=== PATIENT | female | born 1935 | race Caucasian/White ===

== ENCOUNTER 2016-06-26 11:58 | Emergency (ER) | payer OTHER, MEDICARE ==
[2016-06-26 12:10] VITALS: BMI 19.5
--- NOTE | 2016-06-26 12:26 | PDOC ---
History of Present Illness - General History Source: Patient, Old Records Exam Limitations: No Limitations <Mick Hutchinson - Last Filed: 06/26/16 17:38> <David Le - Last Filed: 06/27/16 17:01> - General Chief Complaint: Syncope/Near Syncope Stated Complaint: SYNCOPE Time Seen by Provider: 06/26/16 12:12 - History of Present Illness Initial Comments: The patient is a 80 year old female, ANAM, with a significant past medical history of HTN, who presents to the emergency department today for further evaluation of generalized weakness at 1100 today. The patient states that she went to her inspector hairspring this more any began to feel fatigued/generally weak. She states the hairstylist became concerned, sat her in a chair with a pillow behind her head and called an ambulance. . She denies any loss of consciousness , syncope, headache, lightheadedness, chest pain, abdominmal pain. She has no complaints at this time. The patient denies fever and chills. The patient denies nausea, vomiting, dysuria and diarrhea. The patient denies chest pain, cough, and shortness of breath. PCP: Dr. Lujan [phone] PAST MEDICAL HISTORY: HTN, Skin cancer PAST SURGICAL HISTORY: Left abdominal hernia repair. Orthopedic hip surgery FAMILY HISTORY: No pertinent history reported SOCIAL HISTORY: None reported MEDICATIONS: Reviewed ALLERGIES: As per nursing notes (Mick Hutchinson) Past History <Mick Hutchinson - Last Filed: 06/26/16 17:38> - Past Medical History Anemia: No Asthma: No Cancer: Yes (SKIN) Cardiac Disorders: No CVA: No CHF: No Dementia: No Diabetes: No GI Disorders: No Disorders: No HTN: No Hypercholesterolemia: No Liver Disease: No Seizures: No Thyroid Disease: No - Surgical History Abdominal Surgery: Yes (HERNIA REPAIR - LEFT) Appendectomy: No Cardiac Surgery: No Cholecystectomy: No Lung Surgery: No Neurologic Surgery: No Orthopedic Surgery: Yes (hip) - Immunization History Td Vaccination: Yes TDAP Vaccination: Yes Immunization Up to Date: No - Psycho/Social/Smoking Cessation Hx Anxiety: No Suicidal Ideation: No Smoking Status: No Smoking History: Never smoked Have you smoked in the past 12 months: No Number of Cigarettes Smoked Daily: 0 Cigars Per Day: 0 Information on smoking cessation initiated: No Hx Alcohol Use: No Drug/Substance Use Hx: No Substance Use Type: None Hx Substance Use Treatment: No <David Le - Last Filed: 06/27/16 17:01> - Past Medical History Allergies/Adverse Reactions: Allergies Allergy/AdvReac Type Severity Reaction Status Date / Time No Known Drug Allergies Allergy Verified 07/04/14 08:21 Home Medications: Ambulatory Orders No Home Medications 0 dose .ROUTE UTDICT 07/19/13 Nitrofurantoin Monohyd/M-Cryst [Macrobid -] 100 mg PO BID #14 capsule 06/26/16 Cardiac Specific PMH - Complaint Specific PMHX Pacemaker: No <David Le - Last Filed: 06/27/16 17:01> Review of Systems - Review of Systems Able to Perform ROS?: Yes <Mick Hutchinson - Last Filed: 06/26/16 17:38> <David Le - Last Filed: 06/27/16 17:01> - Review of Systems Comments:: CONSTITUTIONAL: Reported: Generalized Weakness, diaphoresis No reported: Fever, Chills, Loss of Appetite HEENT: No reported: Rhinorrhea, Nasal Congestion, Throat Pain, Throat Swelling, Difficulty Swallowing, Mouth Swelling, Ear Pain, Eye Pain, Visual Changes CARDIOVASCULAR: No reported: Chest Pain, Syncope, Palpitations, Irregular Heart Rate, Lightheadedness, Peripheral Edema RESPIRATORY: No reported: Cough, Shortness of Breath, SOB with Exertion, Orthopnea, Wheezing , Stridor, Hemoptysis GASTROINTESTINAL: No reported: Abdominal pain, Abdominal Distension, Nausea, Vomiting, Diarrhea, Constipation, Melena, Hematochezia GENITOURINARY: No reported: Dysuria, Frequency, Urgency, Hesitancy, Flank Pain, Genital Pain MUSCULOSKELETAL: No reported: Myalgia, Arthralgia, Joint Swelling, Back pain, Neck Pain SKIN: No reported: Rash, Itching, Pallor HEMATOLOGIC/IMMUNOLOGIC: No reported: Easy Bleeding, Easy Bruising, Lymphadenopathy, Frequent infections ENDOCRINE: No reported: Unexplained Weight Gain, Unexplained Weight Loss, Heat Intolerance , Cold Intolerance NEUROLOGIC: No reported: Headache, Focal Weakness, Paresthesias, Vertigo, Lightheadedness, Unsteady Gait, Seizure, Mental Status Changes, Incontinence PSYCHIATRIC: No reported: Anxiety, Depression (Mick Hutchinson) *Physical Exam <ManishMatthew joyake - Last Filed: 06/26/16 17:38> <David Le - Last Filed: 06/27/16 17:01> - Vital Signs Last Vital Signs Temp Pulse Resp BP Pulse Ox 98.0 F 17 L 17 134/88 100 06/26/16 18:12 06/26/16 19:30 06/26/16 19:30 06/26/16 19:30 06/26/16 19:30 - Physical Exam Comments: GENERAL: The patient is awake, alert, and fully oriented, Nontoxic - in no acute distress. HEAD: Normocephalic, atraumatic. EYES: extraocular movements intact, sclera anicteric, conjunctiva clear. ENT: Normal voice, Moist mucous membranes. NECK: Normal range of motion, No JVD LUNGS: Breath sounds equal, clear to auscultation bilaterally. No wheezes, no rhonchi, no rales. HEART: Regular rate and rhythm, normal S1 and S2 without murmur, rub or gallop. ABDOMEN: Soft, nontender, normoactive bowel sounds. No guarding, no rebound. No masses. No CVA tenderness EXTREMITIES: Normal range of motion, no edema. No clubbing or cyanosis. No cords , erythema, or tenderness. NEUROLOGICAL: No facial asymmetry, Normal speech, normal gait. PSYCH: Normal mood, normal affect. SKIN: Warm, Dry, normal turgor. (Mick Hutchinson) Heart Score/ECG Review <JasperMatthewMick - Last Filed: 06/26/16 17:38> <David Le - Last Filed: 06/27/16 17:01> - ECG Impressions Comment:: 06/26/16 13:49 Twelve-lead EKG was performed and reviewed by me. There is normal sinus rhythm with a normal rate. Rate of 65 The axis is normal. The intervals are normal. There is normal R wave progression There are no ST or T wave abnormalities. Impression: Normal twelve-lead EKG (David Le) ED Treatment Course - LABORATORY CBC & Chemistry Diagram: 06/26/16 12:13 06/26/16 12:13 <Mick Hutchinson - Last Filed: 06/26/16 17:38> - LABORATORY CBC & Chemistry Diagram: 06/26/16 12:13 06/26/16 12:13 <David Le - Last Filed: 06/27/16 17:01> - ADDITIONAL ORDERS Additional order review: 06/26/16 12:13 RBC 4.52 MCV 91.8 MCHC 33.4 RDW 14.8 MPV 7.6 D Neutrophils % 82.2 D Lymphocytes % 10.8 D Monocytes % 5.3 Eosinophils % 0.4 D Basophils % 1.3 - RADIOLOGY Radiology Studies Ordered: Category Date Time Status CHEST X-RAY PORTABLE* [RAD] Stat Radiology 06/26/16 12:13 Completed Radiograph Interpretation: 06/26/16 13:17 EXAM#: TYPE/EXAM: RESULT: [id number] RAD/CHEST X-RAY PORTABLE* HISTORY PROVIDED: Syncope. A single frontal portable projection of the chest at 12:24 PM is submitted. The heart size is within normal limits. The lung valencia are hyperaerated with some increased interstitial markings consistent with chronic obstructive pulmonary disease. No pulmonary infiltrates or pleural effusions are identified. Stable nodularity is noted within the right lower lobe. IMPRESSION: COPD, no acute pathology or significant change since 07/13/2014. Reported By: William Hayes MD 06/26/16 8070 (Mick Hutchinson) - Medications Given in the ED: ED Medications Discontinued Medications Generic Name Dose Route Start Last Admin Trade Name Freq PRN Reason Stop Dose Admin Sodium Chloride 500 mls @ 500 mls/hr 06/26/16 13:23 06/26/16 13:30 Normal Saline - IV 06/26/16 14:22 500 mls/hr ASDIR STA Administration Ceftriaxone Sodium 1 gm/ 50 mls @ 100 mls/hr 06/26/16 16:12 06/26/16 17:20 Dextrose IVPB 06/26/16 16:41 100 mls/hr ONCE ONE Administration Medical Decision Making <Mick Hutchinson - Last Filed: 06/26/16 17:38> <David Le - Last Filed: 06/27/16 17:01> - Medical Decision Making 06/26/16 14:[address] Lujan. Dr. Lujan answered call. Case discussed. (Mick Hutchinson) 06/26/16 13:22 80y no known pmhx presents with complaint of feeling genreally weak since this AM when she was at the hair dressers, denies any associated cp pain, abd pain, dizziness, n/v, fever/chills, diarrhea, melena, bpr. on exam the pt appears well , with unmremarkable exam will ck labs to r/o anemia, metabolic dernagement, screening ekg for acs, ua to r/o occult uti will give pt gently fluids as pt s states she did not eat anything today because she didnt want to go to the bathroom A portion of this note was documented by scribe services under my direction. I have reviewed the details of the note, within reason, and agree with the documentation with the following case summary and management plan written by me 06/26/16 13:49 The patient's labs results were reviewed noted mild elevation of cr possiblely due to dehdation awaitint UA 06/26/16 14:[address] lujan agree with management and 2nd trop and gentle hydration if negative will d/c elia pt with pmd fu 06/26/16 16:13 ua c/w uti will give pt a dose of CTX will await 2nd trop pt asymptomatic at this time 06/26/16 19:13 trop neg x2 pt feeling improved will dc with pmd fu retun precuations were discussed I discussed the physical exam findings, ancillary test results and final diagnoses with the patient. I answered all of the patient's questions. The patient was satisfied with the care received and felt comfortable with the discharge plan and treatment plan. The patient will call their primary care physician within 24 hours to arrange follow-up and will return to the Emergency Department with any new, persistent or worsening symptoms. (David Le) *DC/Admit/Observation/Transfer <Mick Hutchinson - Last Filed: 06/26/16 17:38> - Discharge Dispostion Admit: No <David Le - Last Filed: 06/27/16 17:01> Diagnosis at time of Disposition: UTI (urinary tract infection) Qualifiers: Urinary tract infection type: site unspecified Hematuria presence: without hematuria Qualified Code(s): N39.0 - Urinary tract infection, site not specified - Discharge Dispostion Disposition: HOME Condition at time of disposition: Improved - Prescriptions Prescriptions: Nitrofurantoin Monohyd/M-Cryst [Macrobid -] 100 mg PO BID #14 capsule - Referrals Referrals: Sybil Lujan [Primary Care Provider] - - Patient Instructions Printed Discharge Instructions: DI for Urinary Tract Infection (UTI) Additional Instructions: Return to the emergency department immediately with ANY new, persistent or worsening symptoms including any fever/chills, back pain, or other concerns. You MUST call and follow up with your doctor tomorrow for further evaluation of your symptoms. Results were discussed with you. Please make sure your doctor reviews the results of your emergency evaluation. If you had any xrays during your visit, it was read preliminarily by myself, a Radiologist will review it and if there are any additional findings we will call you. - Attestations Scribe Attestion: Documentation prepared by Mick Hutchinson, acting as medical office assistant for David Le. (Mick Hutchinson)
[2016-06-26 12:37] LABS: BASOPHIL 1.3 % (0-2.0); EOSINOPHIL 0.4 % (0-4.5); MCH 30.6 pg (25.7-33.7); MCHC 33.4 g/dl (32.0-36.0); MEAN CELL VOLUME 91.8 fl (80-96); MEAN PLT VOLUME 7.6 fl (7.5-11.1); NEUTROPHILS 82.2 % (42.8-82.8); PLATELET COUNT 172 K/MM3 (134-434); RDW 14.8 % (11.6-15.6); WHITE BLOOD COUNT 4.8 K/mm3 (4.0-10.0)
[2016-06-26] MEDS ORDERED: SODIUM CHLORIDE 500 ML IV STA (13:23)
[2016-06-26 13:29] LABS: ALBUMIN 3.7 g/dl (3.4-5.0); ANION GAP 20 (8-16); CALCIUM 9.6 mg/dL (8.5-10.1); CO2 21 mmol/L (21-32); COCKROFT - GAULT 26.2735; CREATININE 1.3 mg/dL (0.55-1.02); GLUCOSE,RANDOM 72 mg/dL (74-106); SGOT/AST 21 U/L (15-37); SGPT/ALT 13 U/L (12-78); TOT PROT 6.5 g/dl (6.4-8.2)
[2016-06-26 13:32] LABS: ALK PHOS 80 U/L (45-117); TROPONIN I < 0.02 ng/ml (0.00-0.05)
[2016-06-26 16:00] LABS: URINE APPEARANCE CLEAR; URINE BILIRUBIN 1+ (NEGATIVE); URINE BLOOD TRACE-INTA (NEGATIVE); URINE COLOR LT. YELLOW; URINE GLUCOSE (UA) NEGATIVE (NEGATIVE); URINE KETONE 1+ (NEGATIVE); URINE PROTEIN TRACE (NEGATIVE); URINE UROBILINOGEN 0.2 E.U/dl E.U./dl (0.2-1.0)
[2016-06-26 16:01] LABS: URINE LEUK ESTERASE 1+ (NEGATIVE); URINE NITRITE POSITIVE (NEGATIVE)
[2016-06-26] MEDS ORDERED: CEFTRIAXONE 1 GM in DEXTROSE 5%-WATER - 50 ML IVPB ONE (16:12)
[2016-06-26 17:15] LABS: URINE BACTERIA MODERATE /hpf (NONE SEEN); URINE RBC 5 /hpf (0-3); URINE WBC 6 /hpf (3-5)
[2016-06-26] MEDS ORDERED: CEFTRIAXONE 50 ML ONE (17:19)
[2016-06-26 18:13] VITALS: TEMP 98
[2016-06-26 18:55] LABS: TROPONIN I < 0.02 ng/ml (0.00-0.05)
[2016-06-26 19:31] VITALS: BP 134/88; PULSE 17
--- NOTE | 2016-06-29 12:56 | EKG ---
Test Reason : Blood Pressure : / mmHG Vent. Rate : 065 BPM Atrial Rate : 065 BPM P-R Int : 158 ms QRS Dur : 082 ms QT Int : 434 ms P-R-T Axes : 078 048 059 degrees QTc Int : 451 ms NORMAL SINUS RHYTHM NORMAL ECG WHEN COMPARED WITH ECG OF 10-JUN-2011 13:19, NO SIGNIFICANT CHANGE WAS FOUND Confirmed by ASHWIN SOLIS MD ([id number]) on 06/29/2016 12:56:10 PM Referred By: Confirmed By:ASHWIN SOLIS MD
== END 2016-06-26 19:31 | disposition home or self-care (01) ==
LOC: JER 11:58
PROC: 3E0337Z Introduction of Electrolytic and Water Balance Substance into Peripheral Vein, Percutaneous Approach (ICD-10-PCS; principal; 2016-06-26)
PROC: 3E03329 Introduction of Other Anti-infective into Peripheral Vein, Percutaneous Approach (ICD-10-PCS; 2016-06-26)
DX: N30.00 Acute cystitis without hematuria (principal); I10 Essential (primary) hypertension; J44.9 Chronic obstructive pulmonary disease, unspecified
CPT/HCPCS: 36415; 71010-TC; 80053; 81003; 81015; 82550; 84484; 85025; 93005; 93010; 96361; 96365; 99285-25

== ENCOUNTER 2016-07-23 17:29 | Inpatient (IN) | payer OTHER, MEDICARE ==
[2016-07-23 17:36] VITALS: BMI 19.5
--- NOTE | 2016-07-23 18:17 | PDOC ---
History of Present Illness <Johanne Oliveira - Last Filed: 07/23/16 20:59> - General History Source: Patient, Old Records Exam Limitations: No Limitations <Mick Hutchinson - Last Filed: 07/23/16 21:23> - General Chief Complaint: Chest Pain Stated Complaint: CHEST PAIN - History of Present Illness Initial Comments: The patient is a 80 year old female, accompanied by daughter, with a significant past medical history of HTN, who presents to the emergency department today for further evaluation of chest pain for 2 hours. The patient states that earlier today she syncopized in a stationary store in [place], was evaluated by police, and asked to go home instead of presenting to the ED. At 4pm today the patient called her daughter after onset of symptoms. The patient describes the chest pain as midsternal pressure and non-radiating. The patient states that she has never experienced this kind of chest pain previously. She did not try to treat her pain at home. She denies history of TN or CVA/TIA. The patient denies fever, chills, and sweats. The patient denies nausea, vomiting, and diarrhea. The patient denies cough, and shortness of breath. PCP: Dr. Sybil Lujan [phone] PAST MEDICAL HISTORY: HTN, Skin cancer PAST SURGICAL HISTORY: Left abdominal hernia repair. Orthopedic hip surgery FAMILY HISTORY: No pertinent history reported SOCIAL HISTORY: None reported ALLERGIES: As per nursing notes MEDICATIONS: Reviewed (Mick Hutchinson) Past History - Past Medical History Anemia: No Asthma: No Cancer: Yes (SKIN) Cardiac Disorders: No CVA: No CHF: No Dementia: No Diabetes: No GI Disorders: No Disorders: No HTN: No Hypercholesterolemia: No Liver Disease: No Seizures: No Thyroid Disease: No - Surgical History Abdominal Surgery: Yes (HERNIA REPAIR - LEFT) Appendectomy: No Cardiac Surgery: No Cholecystectomy: No Lung Surgery: No Neurologic Surgery: No Orthopedic Surgery: Yes (hip) - Immunization History Td Vaccination: Yes TDAP Vaccination: Yes Immunization Up to Date: No - Psycho/Social/Smoking Cessation Hx Anxiety: No Suicidal Ideation: No Smoking Status: No Smoking History: Never smoked Have you smoked in the past 12 months: No Number of Cigarettes Smoked Daily: 0 Cigars Per Day: 0 Information on smoking cessation initiated: No Hx Alcohol Use: No Drug/Substance Use Hx: No Substance Use Type: None Hx Substance Use Treatment: No <Johanne Oliveira - Last Filed: 07/23/16 20:59> <Mick Hutchinson - Last Filed: 07/23/16 21:23> - Past Medical History Allergies/Adverse Reactions: Allergies Allergy/AdvReac Type Severity Reaction Status Date / Time No Known Drug Allergies Allergy Verified 07/23/16 18:16 Home Medications: Ambulatory Orders No Home Medications 0 dose .ROUTE UTDICT 07/19/13 Cardiac Specific PMH - Complaint Specific PMHX Pacemaker: No <Johanne Oliveira - Last Filed: 07/23/16 20:59> Review of Systems <Johanne Oliveira - Last Filed: 07/23/16 20:59> - Review of Systems Able to Perform ROS?: Yes <Mick Hutchinson - Last Filed: 07/23/16 21:23> - Review of Systems Comments:: GENERAL/CONSTITUTIONAL: No fever or chills. No weakness. HEAD, EYES, EARS, NOSE AND THROAT: No change in vision. No ear pain or discharge. No sore throat. GASTROINTESTINAL: No nausea, vomiting, diarrhea or constipation. GENITOURINARY: No dysuria, frequency, or change in urination. CARDIOVASCULAR: (+) Chest pain, Syncope. No shortness of breath. RESPIRATORY: No cough, wheezing, or hemoptysis. MUSCULOSKELETAL: No joint or muscle swelling or pain. No neck or back pain. SKIN: No rash NEUROLOGIC: No headache, vertigo, loss of consciousness, or change in strength/ sensation. ENDOCRINE: No increased thirst. No abnormal weight change. HEMATOLOGIC/LYMPHATIC: No anemia, easy bleeding, or history of blood clots. ALLERGIC/IMMUNOLOGIC: No hives or skin allergy. (Mick Hutchinson) *Physical Exam <Johanne Oliveira - Last Filed: 07/23/16 20:59> <Mick Hutchinson - Last Filed: 07/23/16 21:23> - Vital Signs Last Vital Signs Temp Pulse Resp BP Pulse Ox 97.6 F 69 21 143/83 100 07/23/16 17:35 07/23/16 19:15 07/23/16 19:15 07/23/16 19:15 07/23/16 19:15 - Physical Exam Comments: GENERAL: Awake, alert, and fully oriented, in no acute distress HEAD: No signs of trauma EYES: PERRLA, EOMI, sclera anicteric, conjunctiva clear ENT: Auricles normal inspection, nares patent, Moist mucosa NECK: Normal ROM, supple, no lymphadenopathy, JVD, or masses LUNGS: Breath sounds equal, clear to auscultation bilaterally. No wheezes, and no crackles HEART: Regular rate and rhythm, normal S1 and S2, no murmurs, rubs or gallops ABDOMEN: Soft, nontender, normoactive bowel sounds. No guarding, no rebound. No masses EXTREMITIES: Normal range of motion, no edema. No clubbing or cyanosis. No cords, erythema, or tenderness NEUROLOGICAL: Normal speech SKIN: Warm, Dry, normal turgor, no rashes or lesions noted. (Mick Hutchinson) Heart Score/ECG Review #1 General ECG Interpretation: Sinus Rhythm, Normal Rate, Normal Intervals, No acute ischemic changes Compared to previous ECG there are: No significant change (compare 06/26/16) - ECG Intrepretation Rhythm: Regular Rhythm - [place]: Normal <Johanne Oliveira - Last Filed: 07/23/16 20:59> <Mick Hutchinson - Last Filed: 07/23/16 21:23> - ECG Intrepretation Comment:: 07/23/16 18:[address] elevation or depression. (Johanne Oliveira) ED Treatment Course - LABORATORY CBC & Chemistry Diagram: 07/23/16 18:35 07/23/16 18:36 <Johanne Oliveira - Last Filed: 07/23/16 20:59> - LABORATORY CBC & Chemistry Diagram: 07/23/16 18:35 07/23/16 18:36 <Mick Hutchinson - Last Filed: 07/23/16 21:23> - ADDITIONAL ORDERS Additional order review: Laboratory Results 07/23/16 07/23/16 07/23/16 18:50 18:36 18:18 INR 0.99 Sodium 137 Potassium 4.4 Chloride 97 L Carbon Dioxide 30 D Anion Gap 10 BUN 33 H Creatinine 1.4 H Creat Clearance w eGFR 36.00 Random Glucose 92 D Calcium 9.3 Magnesium 2.1 Total Bilirubin 0.6 D AST 29 D ALT 22 D Alkaline Phosphatase 85 Creatine Kinase Cancelled 92 Troponin I Cancelled < 0.02 Total Protein 6.5 Albumin 3.8 07/23/16 18:35 RBC 4.35 MCV 90.5 MCHC 32.8 RDW 14.4 MPV 8.4 D - RADIOLOGY Radiograph Interpretation: EXAM#: TYPE/EXAM: RESULT: [id number] RAD/CHEST PA LAT Chest pain. Rule out infiltrate. Chest x-ray PA and lateral. Since prior chest x-ray dated 06/26/2016 , the cardiac silhouette remains slightly enlarged with unfolding of the aortic arch and perihilar increased lung markings. There are mild bibasal atelectatic changes. An approximately 6 mm nodular density is again noted in the right midlung with irregular margin unchanged since prior chest x-ray dated 2014. Mediastinum and visualized osseous structures appear intact with evidence of osteopenia Impression: Stable 6 mm nodule in the right midlung with a slightly irregular margin, unchanged since prior chest x-ray dated 07/13/[address] scan of the chest dated . No focal infiltrates are identified. Reported By: Patrice Stout MD 07/23/16 1950 (Mick Hutchinson) - Medications Given in the ED: ED Medications Discontinued Medications Generic Name Dose Route Start Last Admin Trade Name Freq PRN Reason Stop Dose Admin Aspirin 162 mg 07/23/16 18:40 07/23/16 18:59 Asa - PO 07/23/16 18:41 162 mg ONCE ONE Administration Medical Decision Making <Johanne Oliveira - Last Filed: 07/23/16 20:59> <Mick Hutchinson - Last Filed: 07/23/16 21:23> - Medical Decision Making 07/23/16 18:13 80 yo F wit h/o low bp ( not currently taking any medications) here wtih syncope this am, and now having chest pain. had syncopal episode this am while at a store in [place]. bre[place]. was evaluated by EMS, felt ok to go home. then this afternoon started having chest pain. described as a pressure like sensation , substernal no radiation. no associated n/v/ or sob. no leg edema. no mod factors. no h/o similar pain. did have syncopal episode several weeks ago , was evaluated and dc home. no prior stress test. no family h/o CAD. on exam awake alert, lungs clear. heart no m/r/g. abd soft no palp massess. ext wwp, no edema. nuero alert and oriented, moves all ext speech clear. plan: differential: dehydration, anemia acs, infection such as uti, pna, mi, plan ekg, aspirin, cxr tele, labs will require admission to tele r/o acs. will d /w pt street vendor dr. martinez and pcp kaila lujan. 07/23/16 20:51 on reassessment pt states now pain is pleuritic worse with movement and deep breathing. n orisk factor for pe or dvt. has old eccymosis (1 x 1 cm in size right lower anterior chest wall) with mild ttp. no palp crepitus or step off. will admit to tele. first set of enzymes negative. cxr with right sided nodule otherwise negative. pg dr lindsey and dr martinez (Johanne Oliveira) 07/23/16 20:[address] Lujan's service placed [phone] 07/23/16 20:[address] Martinez's service placed [phone]. 07/23/16 20:57 Dr. Lujan called in the ED. Case discussed. Agreed to admit. 07/23/16 21:[address] Martinez's service placed [phone]. 07/23/16 21:10 Dr. Caputo (in school suspension aide for Dr. Martinez) called into ED. Case discussed. Agreed to admit. (Mick Hutchinson) *DC/Admit/Observation/Transfer - Discharge Dispostion Admit: Yes <Johanne Oliveira - Last Filed: 07/23/16 20:59> <Mick Hutchinson - Last Filed: 07/23/16 21:23> Diagnosis at time of Disposition: Syncope, Chest pain - Referrals Referrals: Sybil Lujan [Primary Care Provider] - - Attestations Scribe Attestion: Documentation prepared by Mick Hutchinson, acting as medical clerk for Johanne Oliveira MD. (Mick Hutchinson)
[2016-07-23] MEDS ORDERED: ASPIRIN 81 MG CHEWABLE TABLETS PO ONE (18:40)
[2016-07-23 18:47] LABS: MCH 29.7 pg (25.7-33.7); MCHC 32.8 g/dl (32.0-36.0); MEAN CELL VOLUME 90.5 fl (80-96); MEAN PLT VOLUME 8.4 fl (7.5-11.1); PLATELET COUNT 151 K/MM3 (134-434); RDW 14.4 % (11.6-15.6); WHITE BLOOD COUNT 8.1 K/mm3 (4.0-10.0)
[2016-07-23 19:22] LABS: ALBUMIN 3.8 g/dl (3.4-5.0); ANION GAP 10 (8-16); BILIRUBIN,TOTAL 0.6 mg/dL (0.2-1.0); CALCIUM 9.3 mg/dL (8.5-10.1); CO2 30 mmol/L (21-32); CREATININE 1.4 mg/dL (0.55-1.02); GLUCOSE,RANDOM 92 mg/dL (74-106); SGOT/AST 29 U/L (15-37); SGPT/ALT 22 U/L (12-78); TOT PROT 6.5 g/dl (6.4-8.2)
[2016-07-23 19:25] LABS: ALK PHOS 85 U/L (45-117); TROPONIN I < 0.02 ng/ml (0.00-0.05)
[2016-07-23 19:51] LABS: INR 0.99 (0.82-1.09); PROTHROMBIN TIME (PATIENT) 10.9 SEC (9.98-11.88)
[2016-07-24 07:58] LABS: ANION GAP 10 (8-16); CALCIUM 8.8 mg/dL (8.5-10.1); CO2 30 mmol/L (21-32); COCKROFT - GAULT 34.1615; GLUCOSE,RANDOM 70 mg/dL (74-106)
[2016-07-24 08:06] LABS: THYROID STIMULATING HORMONE 1.99 uIU/ml (0.358-3.74)
[2016-07-24 08:22] LABS: TROPONIN I < 0.02 ng/ml (0.00-0.05)
--- NOTE | 2016-07-24 09:37 | HP ---
Admitting History and Physical - Primary Care Physician PCP: Sybil Lujan S - Admission Chief Complaint: CP, presyncope History of Present Illness: The patient is a 80 year old female, accompanied by daughter, with a significant past medical history of HTN, aortic insufficiency, pulm nodules who presented for further evaluation of chest pain for 2 hours. The patient reports feeling weak, near syncope, then fell without true syncope. The patient describes the chest pain as midsternal discomfort, non-exertional, reproducible , pleuritic, worse with turning from side to side. s/p ER visit few weeks ago when she also almost passed out (but did not) found to have UTI sent home on po ATB nodysuria now but has some lower abdominal discomfort on/off; occasional constipation also, no fever no N/V History Source: Patient, Medical Record Limitations to Obtaining History: No Limitations - Past Medical History Pulmonary: Yes: COPD, Other (lung nodule) Musculoskeletal: Yes: Osteoarthritis - Smoking History Smoking history: Never smoked Have you smoked in the past 12 months: No Aproximately how many cigarettes per day: 0 - Alcohol/Substance Use Hx Alcohol Use: No History of Substance Use: reports: None - Social History Usual Living Arrangement: Yes: Alone ADL: Independent History of Recent Travel: No Home Medications - Allergies Allergies/Adverse Reactions: Allergies Allergy/AdvReac Type Severity Reaction Status Date / Time No Known Drug Allergies Allergy Verified 07/23/16 18:16 - Home Medications Home Medications: Ambulatory Orders No Home Medications 0 dose .ROUTE UTDICT 07/19/13 Levofloxacin [Levaquin -] 250 mg PO DAILY #7 tablet 07/25/16 Family Disease History - Family Disease History Family History: Unremarkable Review of Systems - Review of Systems Constitutional: denies: Chills, Fever, Lethargy Eyes: denies: Blind Spots, Blurred Vision, Double Vision HENT: denies: Ear Pain Neck: denies: Decreased ROM, Pain on Movement, Stiffness Cardiovascular: reports: Chest Pain. denies: Palpitations, Shortness of Breath Respiratory: denies: Cough, SOB Gastrointestinal: reports: Abdominal Pain, Bloating, Constipation. denies: Diarrhea, Vomiting Genitourinary: denies: Burning, Dysuria, Flank Pain Musculoskeletal: reports: Back Pain (occasional) Integumentary: denies: Pruritis, Rash Neurological: reports: Change in LOC, Confusion, Dizziness, Weakness (general). denies: Change in Speech, Headache, Seizure, Syncope (presyncope), Unsteady Gait Hematology/Lymphatic: denies: Easily Bruised, Excessive Bleeding Psychiatric: denies: Altered Sleep Pattern, Anxiety, Depression Physical Examination Vital Signs: Vital Signs Temperature 98 F 07/24/16 09:00 Pulse Rate 72 07/24/16 09:00 Respiratory Rate 18 07/24/16 09:00 Blood Pressure 122/68 07/24/16 09:00 O2 Sat by Pulse Oximetry (%) 100 07/23/16 22:57 Constitutional: Yes: No Distress, Calm Eyes: Yes: Conjunctiva Clear HENT: Yes: Atraumatic Neck: Yes: Supple Cardiovascular: Yes: Regular Rate and Rhythm Respiratory: Yes: CTA Bilaterally Gastrointestinal: Yes: Soft. No: Distention, Tenderness Renal/: No: CVA Tenderness - Left, CVA Tenderness - Right, Hematuria Musculoskeletal: No: Joint Stiffness, Joint Swelling Extremities: No: Cold, Cool, Cyanosis Edema: No Peripheral Pulses WNL: Yes Integumentary: Yes: Venous Stasis Changes. No: Rash Neurological: Yes: WNL, Alert, Oriented, Other (no signs of seizures, no shakes , no incontinence). No: Ataxia, Confusion, Dysarthria, Facial Droop, Lethargy, Seizure, Tingling, Tremors, Unsteady Gait, Weakness ...Motor Strength: WNL Psychiatric: Yes: WNL, Alert, Oriented. No: Agitated, Suicidal Ideation Labs: CBC, BMP 07/24/16 05:38 Imaging - Results Chest X-ray: Report Reviewed Other: Report Reviewed Assessment/Plan The patient is a 80 year old female, accompanied by daughter, with a significant past medical history of HTN, aortic insufficiency, pulm nodules who presented for further evaluation of chest pain for 2 hours. The patient reports feeling weak, near syncope, then fell without true syncope. s/p UTI; some abdominal discomfort admitted to telemetry head CT negative check echo, carotids cardiology eval abdomen CT; po ATB for UTI eval as outpt chest CT no ivc falls decubs DVT pfx d/w pt and staff
[2016-07-24] MEDS: HEPARIN NA (PORCINE) 5,000 UNITS/ML 1ML VIAL SQ SCH ×2 (10:26→22:33)
--- NOTE | 2016-07-24 12:29 | CON.CARD ---
Consult Consult Specialty:: Cardiology Referred by:: Sybil Ljuan MD Reason for Consultation:: Chest pain - History of Present Illness Chief Complaint: Light-headedness, chest pain History of Present Illness: The patient is a 80 year old female, accompanied by daughter, with a significant past medical history of HTN, aortic insufficiency, pulm nodules who presented for further evaluation of chest pain for 2 hours. The patient reports feeling weak, near syncope, then fell without true syncope. The patient describes the chest pain as midsternal discomfort, non-exertional, reproducible , pleuritic, worse with turning from side to side. PCP: Dr. Sybil Lujan [phone] PAST MEDICAL HISTORY: HTN, Skin cancer PAST SURGICAL HISTORY: Left abdominal hernia repair. Orthopedic hip surgery FAMILY HISTORY: No pertinent history reported SOCIAL HISTORY: None reported ALLERGIES: As per nursing notes MEDICATIONS: Reviewed (Mick Hutchinson) - History Source History Provided By: Family Member Limitations to Obtaining History: Poor Historian - Alcohol/Substance Use Hx Alcohol Use: No - Smoking History Smoking history: Never smoked Have you smoked in the past 12 months: No Aproximately how many cigarettes per day: 0 Home Medications - Allergies Allergies/Adverse Reactions: Allergies Allergy/AdvReac Type Severity Reaction Status Date / Time No Known Drug Allergies Allergy Verified 07/23/16 18:16 - Home Medications Home Medications: Ambulatory Orders No Home Medications 0 dose .ROUTE UTDICT 07/19/13 Review of Systems - Review of Systems Constitutional: reports: Loss of Appetite Cardiovascular: reports: Chest Pain Neurological: reports: Weakness Vital Signs: Vital Signs Temperature 98 F 07/24/16 09:00 Pulse Rate 72 07/24/16 09:00 Respiratory Rate 18 07/24/16 09:00 Blood Pressure 122/68 07/24/16 09:00 O2 Sat by Pulse Oximetry (%) 100 07/23/16 22:57 Constitutional: Yes: No Distress, Calm Neck: Yes: Supple Respiratory: Yes: Regular, CTA Bilaterally, Other (Old bruise on chest wall) Gastrointestinal: Yes: Normal Bowel Sounds, Soft Cardiovascular: Yes: Regular Rate and Rhythm JVD: No Carotid Bruit: No Heart Sounds: Yes: S1, S2 Edema: No - Other Data Labs, Other Data: CBC, BMP 07/24/16 05:38 INR, PTT INR 0.99 (0.82-1.09) 07/23/16 18:18 Troponin, BNP 07/24/16 05:38 Troponin I < 0.02 Troponin, BNP 07/24/16 05:38 Troponin I < 0.02 NSR @ 74 min criteria LVH Tele: SR without events Imaging - Results Chest X-ray: Report Reviewed (Stable 6 mm right midlung nodule) Problem List - Problems (1) Atypical chest pain Code(s): R07.89 - OTHER CHEST PAIN (2) Aortic regurgitation Code(s): I35.1 - NONRHEUMATIC AORTIC (VALVE) INSUFFICIENCY Qualifiers: Cardiac valve disease etiology: nonrheumatic Qualified Code(s): I35.1 - Nonrheumatic aortic (valve) insufficiency (3) Vasovagal near syncope Code(s): R55 - SYNCOPE AND COLLAPSE (4) Pulmonary nodule, right Code(s): R91.1 - SOLITARY PULMONARY NODULE Assessment/Plan 1. Atypical chest pain syndrome 2. Near syncope suspect hypovolemia, daughter reports decreased intake 3. Acute on CKD improving 4. Aortic regurgitation 5. Right midlung pulmonary nodule stable P:1. Ruled out for [place] 2. F/u echo to assess ventricular and valve fxn, analgesia as needed 3. Anticipate d/c in AM with f/u with Dr. Martinez 4. Thank you for consultative opportunity
[2016-07-24 13:03] LABS: URINE APPEARANCE CLEAR; URINE BILIRUBIN NEGATIVE (NEGATIVE); URINE COLOR YELLOW; URINE GLUCOSE (UA) NEGATIVE (NEGATIVE); URINE KETONE 1+ (NEGATIVE); URINE NITRITE POSITIVE (NEGATIVE); URINE PROTEIN NEGATIVE (NEGATIVE); URINE UROBILINOGEN NEGATIVE E.U./dl (0.2-1.0)
[2016-07-24 13:06] LABS: URINE BLOOD 1+ (NEGATIVE); URINE LEUK ESTERASE 2+ (NEGATIVE)
[2016-07-24 13:08] LABS: URINE BACTERIA MANY /hpf (NONE SEEN); URINE HYALINE CAST 4 /lpf; URINE MUCUS RARE; URINE RBC 4 /hpf (0-3); URINE WBC 13 /hpf (3-5)
--- NOTE | 2016-07-25 06:31 | PN ---
Progress Note, Physician Chief Complaint: in bed NAD no new c/o except constipation d/w cardio at bedside - Current Medication List Current Medications: Active Medications Heparin Sodium (Porcine) (Heparin -) 5,000 unit SQ BID [facility] Last Admin: 07/24/16 22:33 Dose: 5,000 unit - Objective Vital Signs: Vital Signs Temperature 98.4 F 07/25/16 06:00 Pulse Rate 65 07/25/16 06:00 Respiratory Rate 20 07/25/16 06:00 Blood Pressure 146/76 07/25/16 06:00 O2 Sat by Pulse Oximetry (%) 96 07/24/16 21:00 Constitutional: Yes: No Distress, Calm Eyes: Yes: Conjunctiva Clear HENT: Yes: Atraumatic Neck: Yes: Supple Cardiovascular: Yes: Regular Rate and Rhythm Respiratory: Yes: CTA Bilaterally Gastrointestinal: Yes: Soft. No: Distention, Tenderness Genitourinary: No: CVA Tenderness - Left, CVA Tenderness - Right Musculoskeletal: No: Joint Stiffness, Joint Swelling Extremities: No: Cold, Cool Edema: No Peripheral Pulses WNL: Yes Integumentary: Yes: Venous Stasis Changes. No: Rash Neurological: Yes: WNL, Alert, Oriented ...Motor Strength: WNL Psychiatric: Yes: WNL, Alert, Oriented. No: Agitated, Suicidal Ideation Labs: CBC, BMP 07/24/16 05:38 INR, PTT INR 0.99 (0.82-1.09) 07/23/16 18:18 - ....Imaging Other: Report Reviewed Assessment/Plan The patient is a 80 year old female, accompanied by daughter, with a significant past medical history of HTN, aortic insufficiency, pulm nodules who presented for further evaluation of chest pain for 2 hours. The patient reports feeling weak, near syncope, then fell without true syncope. s/p UTI; some abdominal discomfort admitted to telemetry head CT negative check echo, carotids cardiology eval abdomen CT; po ATB for UTI eval as outpt chest CT no ivc falls decubs DVT pfx d/w pt and staff
[2016-07-25] MEDS: LEVOFLOXACIN 250 MG TABLET (FP) PO SCH (09:01)
[2016-07-25] MEDS: HEPARIN NA (PORCINE) 5,000 UNITS/ML 1ML VIAL SQ SCH ×2 (09:01→21:16)
[2016-07-25] MEDS: LACTOBACILLUS ACIDOPHILUS 1 EACH TAB (FP) PO SCH (12:14)
[2016-07-25] MEDS: POLYETHYLENE GLYCOL 3350 119 GM BTL PO SCH (12:16)
--- NOTE | 2016-07-25 13:35 | PN ---
Progress Note (short form) - Note Progress Note: Chief Complaint: Events noted, notes reviewed, denies any dizziness or chest pain, denies any dyspnea History of Present Illness: Seen and examined on telemetry. Events noted, notes reviewed, denies any dizziness or chest pain, denies any dyspnea Echocardiography revealed normal LV size and function, mild MR and TR, mild and moderate AI, moderate pulmonary HTN RVSP 40-50 mmHg Medications: Current Medications Heparin Sodium (Porcine) (Heparin -) 5,000 unit SQ BID [facility] Last Admin: 07/25/16 09:01 Dose: 5,000 unit Lactobacillus Acidophilus (Bacid -) 1 tab PO DAILY [facility] Last Admin: 07/25/16 12:14 Dose: 1 tab Levofloxacin (Levaquin -) 250 mg PO DAILY [facility] Last Admin: 07/25/16 09:01 Dose: 250 mg Polyethylene Glycol (Miralax (For Daily Use) -) 17 gm PO DAILY [facility] Last Admin: 07/25/16 12:16 Dose: 17 gm Review of Systems - Review of Systems Constitutional: reports: Loss of Appetite Cardiovascular: reports: Chest Pain Neurological: reports: Weakness Vital Signs: Last Vital Signs Temp Pulse Resp BP Pulse Ox 97.8 F 111 H 18 117/72 91 L 07/25/16 08:00 07/25/16 12:16 07/25/16 10:00 07/25/16 10:00 07/25/16 12:16 Constitutional: No Distress, Calm Neck: Supple Negative JVD Respiratory: Clear to A&P Bilaterally Cardiovascular: S1 S2 Regular Rate and Rhythm Gastrointestinal: Soft Benign Normal Bowel Sounds Ext: No Edema Labs: CBC, BMP 07/23/16 18:35 07/24/16 05:38 Assessment/Plan ASSESSMENT: 1. Atypical chest pain syndrome, resolved 2. Near syncope suspect hypovolemia 3. Aortic regurgitation 4. Moderate degree of pulmonary HTN 5. Acute on CKD improved PLAN: 1. No additional intervention is indicated at this point 2. Can be D/C from cardiac point of view and F/U with Dr. Franki Weems MD
--- NOTE | 2016-07-25 15:39 | EKG ---
Test Reason : Blood Pressure : / mmHG Vent. Rate : 074 BPM Atrial Rate : 074 BPM P-R Int : 156 ms QRS Dur : 082 ms QT Int : 404 ms P-R-T Axes : 085 065 073 degrees QTc Int : 448 ms NORMAL SINUS RHYTHM MINIMAL VOLTAGE CRITERIA FOR LVH, MAY BE NORMAL VARIANT BORDERLINE ECG WHEN COMPARED WITH ECG OF 26-JUN-2016 12:36, NO SIGNIFICANT CHANGE WAS FOUND BASELINE ARTIFACT Confirmed by IRA MEYER, HALLIE ([id number]) on 07/25/2016 3:39:11 PM Referred By: Confirmed By:HALLIE ROTH MD
[2016-07-26] MEDS: LACTOBACILLUS ACIDOPHILUS 1 EACH TAB (FP) PO SCH (09:51)
[2016-07-26] MEDS: HEPARIN NA (PORCINE) 5,000 UNITS/ML 1ML VIAL SQ SCH ×2 (09:52→22:09)
[2016-07-26] MEDS: LEVOFLOXACIN 250 MG TABLET (FP) PO SCH (09:52)
[2016-07-26] MEDS: POLYETHYLENE GLYCOL 3350 119 GM BTL PO SCH (09:53)
--- NOTE | 2016-07-26 10:58 | PN ---
Progress Note, Physician Chief Complaint: in bed, NAD but still had some some pleuritic CP on/off and with moving; chest CT ordered pending; O2 sat on RA 91 with exercise - Current Medication List Current Medications: Active Medications Heparin Sodium (Porcine) (Heparin -) 5,000 unit SQ BID [facility] Last Admin: 07/26/16 09:52 Dose: 5,000 unit Lactobacillus Acidophilus (Bacid -) 1 tab PO DAILY [facility] Last Admin: 07/26/16 09:51 Dose: 1 tab Levofloxacin (Levaquin -) 250 mg PO DAILY [facility] Last Admin: 07/26/16 09:52 Dose: 250 mg Polyethylene Glycol (Miralax (For Daily Use) -) 17 gm PO DAILY [facility] Last Admin: 07/26/16 09:53 Dose: 17 gm - Objective Vital Signs: Vital Signs Temperature 98.4 F 07/25/16 22:00 Pulse Rate 62 07/26/16 05:54 Respiratory Rate 18 07/26/16 05:54 Blood Pressure 127/68 07/26/16 05:54 O2 Sat by Pulse Oximetry (%) 98 07/25/16 21:00 Constitutional: Yes: No Distress, Calm Eyes: Yes: Conjunctiva Clear HENT: Yes: Atraumatic Neck: Yes: Supple Cardiovascular: Yes: Regular Rate and Rhythm Respiratory: Yes: CTA Bilaterally Gastrointestinal: Yes: Soft. No: Distention, Tenderness Genitourinary: No: CVA Tenderness - Left, CVA Tenderness - Right Musculoskeletal: No: Joint Stiffness, Joint Swelling Extremities: No: Cold, Cool Edema: No Peripheral Pulses WNL: Yes Integumentary: No: Rash, Venous Stasis Changes Neurological: Yes: WNL, Alert, Oriented ...Motor Strength: WNL Psychiatric: Yes: WNL, Alert, Oriented. No: Agitated, Suicidal Ideation Labs: CBC, BMP 07/24/16 05:38 INR, PTT INR 0.99 (0.82-1.09) 07/23/16 18:18 - ....Imaging Other: Report Reviewed Assessment/Plan The patient is a 80 year old female, accompanied by daughter, with a significant past medical history of HTN, aortic insufficiency, pulm nodules who presented for further evaluation of chest pain for 2 hours. The patient reports feeling weak, near syncope, then fell without true syncope. s/p UTI;no abdominal pain or dysuria cardiology f/u eval as outpt chest CT no ivc falls decubs DVT pfx d/w pt and staff
--- NOTE | 2016-07-26 12:18 | PN ---
Progress Note (short form) - Note Progress Note: Chief Complaint: Events noted, notes reviewed, reports vague chest discomfort, denies any dizziness or dyspnea History of Present Illness: Seen and examined on telemetry. Events noted, notes reviewed, reports vague chest discomfort, denies any dizziness or dyspnea Echocardiography revealed normal LV size and function, mild MR and TR, mild and moderate AI, moderate pulmonary HTN RVSP 40-50 mmHg Medications: Current Medications Heparin Sodium (Porcine) (Heparin -) 5,000 unit SQ BID [facility] Last Admin: 07/26/16 09:52 Dose: 5,000 unit Lactobacillus Acidophilus (Bacid -) 1 tab PO DAILY [facility] Last Admin: 07/26/16 09:51 Dose: 1 tab Levofloxacin (Levaquin -) 250 mg PO DAILY [facility] Last Admin: 07/26/16 09:52 Dose: 250 mg Polyethylene Glycol (Miralax (For Daily Use) -) 17 gm PO DAILY [facility] Last Admin: 07/26/16 09:53 Dose: 17 gm Review of Systems Cardiovascular: As noted above Respiratory: denies: Cough or Sputum Production Gastrointestinal: denies: Nausea, Vomiting, Diarrhea, Constipation or Abdominal Discomfort Musculoskeletal: No symptoms reported Genitourinary: No symptoms reported Vital Signs: Last Vital Signs Temp Pulse Resp BP Pulse Ox 97.8 F 73 20 127/84 98 07/26/16 10:00 07/26/16 10:00 07/26/16 10:00 07/26/16 10:00 07/25/16 21:00 Constitutional: No Distress, Calm Neck: Supple Negative JVD Respiratory: Clear to A&P Bilaterally Cardiovascular: S1 S2 Regular Rate and Rhythm Gastrointestinal: Soft Benign Normal Bowel Sounds Ext: No Edema Labs: CBC, BMP 07/23/16 18:35 07/24/16 05:38 Assessment/Plan ASSESSMENT: 1. Atypical chest pain syndrome, resolving 2. Near syncope suspect hypovolemia 3. Aortic regurgitation 4. Moderate degree of pulmonary HTN 5. Acute on CKD improved PLAN: 1. No additional intervention is indicated at this point from the cardiovascular point of view 2. June D/C telemetry 3. D/C home as per the primary team Yony Weems MD
[2016-07-27] MEDS: LEVOFLOXACIN 250 MG TABLET (FP) PO SCH (09:26)
[2016-07-27] MEDS: HEPARIN NA (PORCINE) 5,000 UNITS/ML 1ML VIAL SQ SCH (09:26)
[2016-07-27] MEDS: LACTOBACILLUS ACIDOPHILUS 1 EACH TAB (FP) PO SCH (09:26)
[2016-07-27] MEDS: POLYETHYLENE GLYCOL 3350 119 GM BTL PO SCH (09:26)
--- NOTE | 2016-07-27 10:53 | PN ---
Progress Note, Physician Chief Complaint: Events noted Not in distress History of Present Illness: Patient was seen and examined. Awake and alert. Chart was reviewed Denies chest pain, SOB or palpitations - Current Medication List Current Medications: Active Medications Heparin Sodium (Porcine) (Heparin -) 5,000 unit SQ BID [facility] Last Admin: 07/27/16 09:26 Dose: 5,000 unit Lactobacillus Acidophilus (Bacid -) 1 tab PO DAILY [facility] Last Admin: 07/27/16 09:26 Dose: 1 tab Levofloxacin (Levaquin -) 250 mg PO DAILY [facility] Last Admin: 07/27/16 09:26 Dose: 250 mg Polyethylene Glycol (Miralax (For Daily Use) -) 17 gm PO DAILY [facility] Last Admin: 07/27/16 09: Dose: 17 gm - Objective Vital Signs: Vital Signs Temperature 98 F 07/27/16 05:00 Pulse Rate 68 07/27/16 05:00 Respiratory Rate 20 07/27/16 05:00 Blood Pressure 118/66 07/27/16 05:00 O2 Sat by Pulse Oximetry (%) 98 07/26/16 21:00 HENT: Yes: Atraumatic Neck: Yes: Supple Cardiovascular: Yes: Regular Rate and Rhythm, Murmur (Soft diastolic murmur in LSB), S1, S2 Respiratory: Yes: CTA Bilaterally Gastrointestinal: Yes: Normal Bowel Sounds, Soft. No: Tenderness Edema: No Additional Findings/Remarks: Review of Systems Cardiovascular: As noted above Respiratory: denies: Cough or Sputum Production Gastrointestinal: denies: Nausea, Vomiting, Diarrhea, Constipation or Abdominal Discomfort Musculoskeletal: No symptoms reported Genitourinary: No symptoms reported Problem List - Problems (1) Aortic regurgitation Code(s): I35.1 - NONRHEUMATIC AORTIC (VALVE) INSUFFICIENCY Qualifiers: Cardiac valve disease etiology: nonrheumatic Qualified Code(s): I35.1 - Nonrheumatic aortic (valve) insufficiency (2) Atypical chest pain Code(s): R07.89 - OTHER CHEST PAIN (3) Vasovagal near syncope Code(s): R55 - SYNCOPE AND COLLAPSE Assessment/Plan 1. Atypical chest pain syndrome, resolving 2. Near syncope suspect hypovolemia 3. Aortic regurgitation 4. Moderate degree of pulmonary HTN 5. Acute on CKD improved PLAN: 1. No additional intervention is indicated at this point from the cardiovascular point of view - follow up in office 2. Discharge home cardiac standpoint Franki Martinez MD
[2016-07-27 13:06] VITALS: PULSE 72
--- NOTE | 2016-07-27 13:20 | DS ---
Physical Examination Vital Signs: Vital Signs Temperature 98.7 F 07/27/16 09:00 Pulse Rate 72 07/27/16 09:00 Respiratory Rate 22 07/27/16 09:00 Blood Pressure 125/77 07/27/16 09:00 O2 Sat by Pulse Oximetry (%) 96 07/27/16 09:00 Findings/Remarks: Pt. w/o SOB, CP, palp, abd. pain, N, V. Constitutional: Yes: No Distress, Calm Eyes: Yes: Conjunctiva Clear, EOM Intact Neck: Yes: Supple Cardiovascular: Yes: Regular Rate and Rhythm, S1, S2 Respiratory: Yes: Regular, Other (coarse BS bilat). No: Rales Edema: No Neurological: Yes: Alert, Oriented Labs: CBC, BMP 07/24/16 05:[address] scan report was reviewed. Discharge Summary Reason For Visit: SYNCOPE/CHEST PAIN Current Active Problems Aortic regurgitation (Acute) Atypical chest pain (Acute) Chest pain (Acute) Pulmonary nodule, right (Acute) Syncope (Acute) Vasovagal near syncope (Acute) Procedures: Principal: Head CT scan. Abd/ pelvis CT scan. Chest CT scan Hospital Course: Pt. came to ER c/o CP and fall after feeling like passing out; she was admitted to Telemetry and seen by Cardio. Pt. GAGANDEEP, no significant arrhythmia noticed on telemetry . Pt was noticed to have UTI, started on ABTX. Pt. had Head , chest and Abd/pelvis CT scan. Pt to be DC'ed home today with outpatient f/u. Condition: Improved - Instructions Diet, Activity, Other Instructions: f/u PCP in 1-2 weeks outpt cardiology and pulmonary f/u outpt neurology alfredal dr Horn repeat UA UCx outpt after ATB; if still with WBC/RBC to see GRAYSON chowdhury falls PFX RTER if worse or recurrent c/o d/w pt about driving her car; would be ideal to stop driving, pt to discuss with cardiology and neurology further instructions Referrals: Sybil Lujan [Primary Care Provider] - (in 1 week; please call for appointment ) Eric Alcantar MD [Staff Physician] - (with a week; please call for appointment) Jamal Chowdhury MD., [Staff Physician] - (as scheduled ) Ean Caputo MD [Staff Physician] - (as scheduled.) Disposition: HOME - Home Medications Comprehensive Discharge Medication List: Ambulatory Orders No Home Medications 0 dose .ROUTE UTDICT 07/19/13 Levofloxacin [Levaquin -] 250 mg PO DAILY #7 tablet 07/25/16 Lactobacillus Acidophilus [Bacid -] 1 tab PO DAILY tab 07/26/16 Polyethylene Glycol 3350 [Miralax 119 gm Btl -] 17 gm PO DAILY bottle 07/26/16
[2016-07-27 14:11] VITALS: BP 106/68; TEMP 98
--- NOTE | 2016-07-27 14:19 | HOL ---
Hook-up date: 2016-07-24 08:51:00 Duration: 24:00:00 Test Indications: SYNCOPE Medications: 00425 QRS complexes 15 Ventricular ectopics which represent <1 % of total QRS comp. 414 Supraventricular ectopics which represent <1 % of total QRS comp. * Paced QRS complexs which represent % of total QRS comp. * % of Time Classified as Noise VENTRICULAR ECTOPY 15 Isolated 0 Bigeminal Cycles 0 Couplets 0 Runs 0 Beats in Runs * Beats LONGEST at * BPM at :: -- * Beats FASTEST at * BPM at :: -- SUPRAVENTRICULAR ECTOPY 359 Isolated 12 Couplets 7 Runs 31 Beats in Runs 11 Beats LONGEST at 120 BPM at 09:07:35 2016-07-24 3 Beats FASTEST at 154 BPM at 06:52:02 2016-07-25 HEART RATES 50 MIN at 00:34:24 2016-07-25 68 AVG 119 MAX at 13:46:08 2016-07-24 LONGEST RR 1.464 secs at 15:21:07 2016-07-24 SCANNED BY: MAURO 07/25/16 1. BASELINE RHYTHM APPEARS TO BE SINUS RHYTHM WITH AVERAGE HR OF 68 BPM WITH RATES VARYING FROM 50 TO 119 BPM. 2. RARE VENTRICULAR ECTOPIES WITH PREMATURE VENTRICULAR COMPLEXES 3. OCCASIONAL ATRIAL ECTOPIES INCLUDING PREMATURE ATRIAL COMPLEXES 4. NONSPECIFIC ST OR T WAVE VARIATIONS 5. DIARY WAS NOT SUBMITTED Confirmed by ASHWIN SOLIS MD ([id number]) on 07/27/2016 2:18:53 PM Referred By: Dominga LOVE Overread By: ASHWIN SOLIS MD
== END 2016-07-27 15:04 | disposition home or self-care (01) | DRG 641 ==
LOC: JER 17:29 → JERBED 20:59 → J4W 23:11
PROVIDERS: ADMIT Internal Medicine; ATTEND Internal Medicine
DX: E86.1 Hypovolemia (principal); N17.9 Acute kidney failure, unspecified; N39.0 Urinary tract infection, site not specified; R55 Syncope and collapse; R07.89 Other chest pain; I35.1 Nonrheumatic aortic (valve) insufficiency; R91.8 Other nonspecific abnormal finding of lung field; S20.219S Contusion of unspecified front wall of thorax, sequela; X58.XXXS Exposure to other specified factors, sequela; I27.2 Other secondary pulmonary hypertension; I12.9 Hypertensive chronic kidney disease with stage 1 through stage 4 chronic kidney disease, or unspecified chronic kidney disease; N18.9 Chronic kidney disease, unspecified; B96.20 Unspecified Escherichia coli [E. coli] as the cause of diseases classified elsewhere
CPT/HCPCS: 36415; 70450-TC; 71020-TC; 71250-TC; 74176-TC; 80048; 80053; 81003; 81015; 82550; 82607; 83735; 84443; 84484; 85027; 85610; 87086; 87186; 93005; 93010; 93225; 93226; 93306-TC; 93880-TC; 94761; 99284-25; J1644; Q9967

== ENCOUNTER 2016-11-17 13:41 | Emergency (ER) | payer OTHER, MEDICARE ==
[2016-11-17 14:15] VITALS: BP 165/80; PULSE 70; TEMP 97.7; BMI 17.3
[2016-11-17] MEDS ORDERED: CEPHALEXIN MONOHYDRATE 250 MG CAPSULE (FP) PO ONE (14:20)
[2016-11-17] MEDS ORDERED: CEPHALEXIN MONOHYDRATE 250 MG CAPSULE (FP) ONE (14:24)
--- NOTE | 2016-11-17 14:25 | PDOC ---
History of Present Illness - General Chief Complaint: Wound Stated Complaint: R WRIST REDNESS AND SWELLING Time Seen by Provider: 11/17/16 13:53 - History of Present Illness Initial Comments: 11/17/16 18:48 Chief complaint: Swelling and redness right wrist History of present illness: Patient noticed swelling and redness of the right wrist this morning. No injury. Mild pain dorsum of the wrist Review of systems: No fever/chills, chest pain, shortness of breath, abdominal pain, nausea, vomiting, diarrhea, distal sensory or motor changes in the extremity Past medical history: Patient is a healthy female, denies current medical problems, takes no medication Social/family history reviewed and noncontributory. Specifically, no tobacco alcohol or nonprescription drugs, cares for herself, daughter visits frequently Physical exam: Alert oriented cheerful and cooperative no acute distress Afebrile, vital signs normal Right upper extremity reveals a 6 cm in diameter area of mild erythema the volar aspect of the distal forearm extending from the wrist into the forearm. There is minimal induration, minimal tenderness to palpation, full pulses, no distal sensory or motor deficits. In this area there is cracked and fissured skin. There is no deformity and no pain with motion of the wrist Impression: Early infection, probably introduced through the skin fissures. No deep pain or sign of deep structure involvement Plan: Volar splint was applied in the position of function. Prior to application of the splint, the area of skin fissuring was scrubbed with saline and dressed with bacitracin, Telfa, 4 x 4, and Suzanne. After application of the splint and sling, the patient was comfortable, there was no distal numbness tingling pain or weakness and good finger motion. There was good capillary refill. The patient was begun on cephalexin and instructed to follow-up closely with primary physician or return to the ER if the area of involvement appeared to be enlarging. Discharged in no pain or other distress with her daughter to follow-up as directed Past History - Past Medical History Allergies/Adverse Reactions: Allergies Allergy/AdvReac Type Severity Reaction Status Date / Time No Known Drug Allergies Allergy Verified 11/17/16 14:11 Home Medications: Ambulatory Orders Cephalexin Monohydrate [Keflex -] 250 mg PO Q6H #30 capsule 10/03/17 Anemia: No Asthma: No Cancer: Yes (SKIN) Cardiac Disorders: No CVA: No CHF: No Dementia: No Diabetes: No GI Disorders: No Disorders: No HTN: Yes Hypercholesterolemia: No Liver Disease: No Seizures: No Thyroid Disease: No - Surgical History Abdominal Surgery: Yes (HERNIA REPAIR - LEFT) Appendectomy: No Cardiac Surgery: No Cholecystectomy: No Lung Surgery: No Neurologic Surgery: No Orthopedic Surgery: Yes (hip) - Immunization History Td Vaccination: Yes TDAP Vaccination: Yes Immunization Up to Date: No - Suicide/Smoking/Psychosocial Hx Smoking Status: No Smoking History: Never smoked Have you smoked in the past 12 months: No Number of Cigarettes Smoked Daily: 0 Cigars Per Day: 0 Information on smoking cessation initiated: No Hx Alcohol Use: No Drug/Substance Use Hx: No Substance Use Type: None Hx Substance Use Treatment: No *Physical Exam - Vital Signs Last Vital Signs Temp Pulse Resp BP Pulse Ox 97.7 F 70 18 165/80 99 11/17/16 14:12 11/17/16 14:12 11/17/16 14:12 11/17/16 14:12 11/17/16 14:12 *DC/Admit/Observation/Transfer Diagnosis at time of Disposition: Cellulitis Qualifiers: Site of cellulitis: extremity Site of cellulitis of extremity: upper extremity Laterality: right Qualified Code(s): L03.113 - Cellulitis of right upper limb - Discharge Dispostion Disposition: HOME Condition at time of disposition: Improved Admit: No - Prescriptions Prescriptions: Cephalexin Monohydrate [Keflex -] 250 mg PO Q6H #30 capsule - Referrals Referrals: Sybil Lujan [Staff Physician] - 2 Days - Patient Instructions Printed Discharge Instructions: DI for Cellulitis -- Adult Additional Instructions: Rest and elevate the forearm on a pillow Warm compresses 4 times daily for approximately 15 or 20 minutes. Be careful, not too hot tuber in the skin. Use triple antibiotic ointment after soaks as directed Use the splint and rest the wrist and hand as much as possible See your doctor in 2-3 days to ensure that your responding to the medication. If worse before that, return to the emergency room for a recheck.
== END 2016-11-17 14:39 | disposition home or self-care (01) ==
LOC: FER 13:41
PROC: 2W3CX1Z Immobilization of Right Lower Arm using Splint (ICD-10-PCS; principal; 2016-11-17)
DX: L03.113 Cellulitis of right upper limb (principal); I10 Essential (primary) hypertension
CPT/HCPCS: 29125; 99281-25

== ENCOUNTER 2016-11-20 15:24 | Emergency (ER) | payer OTHER, MEDICARE ==
[2016-11-20 15:30] VITALS: BMI 16.8
[2016-11-20] MEDS ORDERED: ACETAMINOPHEN 325 MG TABLET (FP) PO ONE (16:36)
--- NOTE | 2016-11-20 16:37 | PDOC ---
History of Present Illness - General Chief Complaint: Wound Infection Stated Complaint: (PCP SENT) Time Seen by Provider: 11/20/16 16:13 History Source: Patient Exam Limitations: No Limitations - History of Present Illness Initial Comments: 11/20/16 16:49 81y F no pmhx presents for evaluation of atraumatic R wrist pain x 4 days. She first noticed redness/pain to her R wrist, she went to [facility] on and was diagnosed with early cellulitis. Pt notes the redness has essentially ersolved, but it started having a yellowish appearcne, and her pain in her wrist has improved, but now migrated to the base of her thumb. The pt denie sany fever/chills, recent falls, injuries. No other sypmtoms including cp, sob, abd pain, back pain, or othe rjoint pain. pt on keflex Past History - Past Medical History Allergies/Adverse Reactions: Allergies Allergy/AdvReac Type Severity Reaction Status Date / Time No Known Drug Allergies Allergy Verified 11/20/16 15:27 Home Medications: Ambulatory Orders Cephalexin Monohydrate [Keflex -] 250 mg PO Q6H #30 capsule 11/17/16 Anemia: No Asthma: No Cancer: Yes (SKIN) Cardiac Disorders: No CVA: No CHF: No Dementia: No Diabetes: No GI Disorders: No Disorders: No HTN: Yes Hypercholesterolemia: No Liver Disease: No Seizures: No Thyroid Disease: No - Surgical History Abdominal Surgery: Yes (HERNIA REPAIR - LEFT) Appendectomy: No Cardiac Surgery: No Cholecystectomy: No Lung Surgery: No Neurologic Surgery: No Orthopedic Surgery: Yes (hip) - Immunization History Td Vaccination: Yes TDAP Vaccination: Yes Immunization Up to Date: No - Suicide/Smoking/Psychosocial Hx Smoking Status: No Smoking History: Never smoked Have you smoked in the past 12 months: No Number of Cigarettes Smoked Daily: 0 Cigars Per Day: 0 Information on smoking cessation initiated: No Hx Alcohol Use: No Drug/Substance Use Hx: No Substance Use Type: None Hx Substance Use Treatment: No Review of Systems - Review of Systems Able to Perform ROS?: Yes Comments:: 11/20/16 17:22 Constitutional - no reported Fever, Chills, HEENT: no reported vision changes, sore throat Respiratory: no reported cough, sob, hemoptysis Cardiac: no reported chest pain, palpitations, light headedness, leg swelling Abd/GI: no reported abd pain, nausea, vomiting, blood per rectum, melena, diarrhea : no reported dysuria, frequency, discharge Musculskelatal - no reported back pain, joint swelling skin - +rash, R thumb pain no reported bruising, erythema neurological: no reported headache, numbness, focal weakness, tingling, ataxia, hematologic: no reported anemia, easy bruising, easy bleeding *Physical Exam - Vital Signs Last Vital Signs Temp Pulse Resp BP Pulse Ox 98 F 72 2 L 113/67 97 11/20/16 15:28 11/20/16 15:28 11/20/16 15:28 11/20/16 15:28 11/20/16 15:28 - Physical Exam Comments: 11/20/16 17:22 GENERAL: The patient is awake, alert, and fully oriented, Nontoxic - in no acute distress. HEAD: Normocephalic, atraumatic. EYES: extraocular movements intact, sclera anicteric, conjunctiva clear. ENT: Normal voice, Moist mucous membranes. NECK: Normal range of motion, supple LUNGS: Breath sounds equal, clear to auscultation bilaterally. No wheezes, no rhonchi, no rales. HEART: Regular rate and rhythm, +murmer appreicated ABDOMEN: Soft, nontender, normoactive bowel sounds. No guarding, no rebound. . No CVA tenderness EXTREMITIES: ecchyomsis noted on distal forearm, mild erythema at 1st mcp of R arm, +pain R thumb with passive flexion/extension NEUROLOGICAL: No facial assymetry, Normal speech, movin gall 4 extermities spontaneously and symmetriclaly PSYCH: Normal mood, normal affect. SKIN: Warm, Dry, normal turgor, ED Treatment Course - LABORATORY CBC & Chemistry Diagram: 11/20/16 16:50 11/20/16 16:50 - RADIOLOGY Radiology Studies Ordered: Category Date Time Status FOREARM- RIGHT [RAD] Stat Radiology 11/20/16 16:32 Ordered WRIST W/HAND-RIGHT* [RAD] Stat Radiology 11/20/16 16:32 Ordered DUPLEX VASCUL US-1 ARM [US] Stat Ultrasound 11/20/16 16:36 Ordered Medical Decision Making - Medical Decision Making 11/20/16 16:36 81 11/20/16 20:17 labs reviewed no luekocytosis noted due to the apperaance of her arm laure tapperas to be yellowish - i suspect may be du eto resolving hematoma, although there is some redness/tenderness of her R thumb. xray negative US negative case was d/w dr. pagan will dc the pt to fu with her as outpatient return precautions were discussed I discussed the physical exam findings, ancillary test results and final diagnoses with the patient. I answered all of the patient's questions. The patient was satisfied with the care received and felt comfortable with the discharge plan and treatment plan. The patient will call their primary care physician within 24 hours to arrange follow-up and will return to the Emergency Department with any new, persistent or worsening symptoms. *DC/Admit/Observation/Transfer Diagnosis at time of Disposition: Thumb pain Qualifiers: Laterality: right Qualified Code(s): M79.644 - Pain in right finger(s) - Discharge Dispostion Disposition: HOME Admit: No - Referrals Referrals: Sybil Pagan [Primary Care Provider] - Abe Henry MD [Staff Physician] - - Patient Instructions Printed Discharge Instructions: DI for Hand Pain Additional Instructions: Return to the emergency department immediately with ANY new, persistent or worsening symptoms. Take motrin and tylenol for your pain continue your antibiotics You MUST call and follow up with dr. Pagan on Wednesday and dr. Henry next week for further evaluation of your symptoms. Results were discussed with you. Please make sure your doctor reviews the results of your emergency evaluation.
[2016-11-20 17:00] LABS: EOSINOPHIL 0.2 % (0-4.5); MCHC 33.6 g/dl (32.0-36.0); MEAN CELL VOLUME 92.3 fl (80-96); MEAN PLT VOLUME 8.3 fl (7.5-11.1); NEUTROPHILS 80.8 % (42.8-82.8); PLATELET COUNT 149 K/MM3 (134-434); RDW 15.2 % (11.6-15.6); WHITE BLOOD COUNT 7.2 K/mm3 (4.0-10.0)
[2016-11-20 18:10] LABS: ALBUMIN 3.2 g/dl (3.4-5.0); ANION GAP 8 (8-16); BILIRUBIN,TOTAL 0.8 mg/dL (0.2-1.0); CALCIUM 9.2 mg/dL (8.5-10.1); CO2 34 mmol/L (21-32); CREATININE 0.7 mg/dL (0.55-1.02); GLUCOSE,RANDOM 98 mg/dL (74-106); SGOT/AST 19 U/L (15-37); SGPT/ALT 18 U/L (12-78); TOT PROT 6.3 g/dl (6.4-8.2)
[2016-11-20 18:11] LABS: ALK PHOS 79 U/L (45-117)
[2016-11-20 19:25] VITALS: BP 136/67; PULSE 65; TEMP 99
== END 2016-11-20 21:15 | disposition home or self-care (01) ==
LOC: JER 15:24
DX: M79.644 Pain in right finger(s) (principal); I10 Essential (primary) hypertension; Z85.828 Personal history of other malignant neoplasm of skin
CPT/HCPCS: 36415; 73090-TC-RT; 73110-TC-RT; 73130-TC-RT; 80053; 85025; 93971; 99282-25

== ENCOUNTER 2017-02-03 11:34 | Emergency (ER) | payer OTHER, MEDICARE ==
--- NOTE | 2017-02-03 11:43 | PDOC ---
History of Present Illness - General History Source: Patient Exam Limitations: No Limitations - History of Present Illness Initial Comments: 02/03/17 12:12 The patient is an 81-year-old female, with no significant past medical history, who presents to the ED via EMS [place] EMS arrived noted that the patient's BS was low. She sustained a laceration to the back of her head; lac is not actively bleeding in ED. On exam, patient reports that she had a small breakfast today and usually has no issues with her BS. She denies feeling dizzy or lightheaded before the incident. She denies any chest pain, palpitations, or shortness of breath. She denies any blurred vision. She denies having any other complaints and is refusing all care. She is requesting to speak to her daughter. PCP: Dr. Sybil Lujan Consumer Loan Specialist: Dr. Martinez <Diane Neves - Last Filed: 02/03/17 12:12> <Florida Swanson - Last Filed: 02/03/17 12:46> - General Stated Complaint: SYNCOPE Time Seen by Provider: 02/03/17 11:36 Past History <Diane Neves - Last Filed: 02/03/17 12:12> - Past Medical History Anemia: No Asthma: No Cancer: Yes (SKIN) Cardiac Disorders: No CVA: No CHF: No Dementia: No Diabetes: No GI Disorders: No Disorders: No HTN: Yes Hypercholesterolemia: No Liver Disease: No Seizures: No Thyroid Disease: No - Surgical History Abdominal Surgery: Yes (HERNIA REPAIR - LEFT) Appendectomy: No Cardiac Surgery: No Cholecystectomy: No Lung Surgery: No Neurologic Surgery: No Orthopedic Surgery: Yes (hip) - Immunization History Td Vaccination: Yes TDAP Vaccination: Yes Immunization Up to Date: No - Suicide/Smoking/Psychosocial Hx Smoking Status: No Smoking History: Never smoked Have you smoked in the past 12 months: No Number of Cigarettes Smoked Daily: 0 Cigars Per Day: 0 Hx Alcohol Use: No Drug/Substance Use Hx: No Substance Use Type: None Hx Substance Use Treatment: No <Florida Swanson - Last Filed: 02/03/17 12:46> - Past Medical History Allergies/Adverse Reactions: Allergies Allergy/AdvReac Type Severity Reaction Status Date / Time No Known Drug Allergies Allergy Verified 02/03/17 11:47 Home Medications: Ambulatory Orders NK [No Known Home Medication] 02/03/17 Review of Systems - Review of Systems Able to Perform ROS?: Yes Comments:: 02/03/17 12:13 GENERAL/CONSTITUTIONAL: No fever or chills. No weakness. HEAD, EYES, EARS, NOSE AND THROAT: No change in vision. No ear pain or discharge. No sore throat. CARDIOVASCULAR: No chest pain or shortness of breath. RESPIRATORY: No cough, wheezing, or hemoptysis. GASTROINTESTINAL: No nausea, vomiting, diarrhea or constipation. GENITOURINARY: No dysuria, frequency, or change in urination. MUSCULOSKELETAL: No joint or muscle swelling or pain. No neck or back pain. SKIN: (+)laceration to the back of head. NEUROLOGIC: (+)syncope. No headache, vertigo, or change in strength/sensation. ENDOCRINE: No increased thirst. No abnormal weight change. HEMATOLOGIC/LYMPHATIC: No anemia, easy bleeding, or history of blood clots. ALLERGIC/IMMUNOLOGIC: No hives or skin allergy. <Diane Neves - Last Filed: 02/03/17 12:12> *Physical Exam - Vital Signs Last Vital Signs Temp Pulse Resp BP Pulse Ox 97.5 F L 63 18 119/68 100 02/03/17 11:49 02/03/17 11:49 02/03/17 11:49 02/03/17 11:49 02/03/17 11:49 - Physical Exam Comments: 02/03/17 12:14 Unable to obtain PE; pt is refusing care. <Diane Neves - Last Filed: 02/03/17 12:12> Medical Decision Making - Medical Decision Making 02/03/17 12:03 Dr. Sybil Lujan's office was contacted to see if there was a number on file for the patient's daughter. <Diane Neves - Last Filed: 02/03/17 12:12> - Medical Decision Making 02/03/17 12:28 pt refusing all care. pt refusing labs, head ct, physical exam states she never wanted to come to the hospital pt refusing sutures and local wound care case discussed with dr. lujan who came to the bedside to try and convince the patient to stay for further eval and would admit the patient. the patient refuses all care in the ED and states she wants to sign out AMA. 02/03/17 12:29 Note: The patient insists on leaving the emergency dept and is signing out against medical advice. The patient understands the risks and complications that may result from the refusal of medical care and admission which includes and permanent disability. The patient has the mental capacity of understanding the risks of refusing care and is capable of making an informed decision. The patient was instructed to return to the emergency department should [] change [] mind regarding medical care or should [] condition worsen. The patient signed the Against Medical Advice form. 02/03/17 12:45 pt states she understands that she is signing out AMA. States she needs to go find her daughter and if her daughter feels she should come back she will return to the ED. Pt refusing local wound care or sutures. pt refusing all ED care. Dr. Lujan at the bedside who states this is normal patient ms and ok to AMA. <Florida Swanson - Last Filed: 02/03/17 12:46> *DC/Admit/Observation/Transfer - Attestations Scribe Attestion: 02/03/17 12:25 Documentation prepared by Diane Neves, acting as medical office assistant for Florida Swanson DO, MD. <Diane Neves - Last Filed: 02/03/17 12:12> - Attestations Physician Attestion: 02/03/17 12:31 I, Dr. [place] Swanson DO, attest that this document has been prepared under my direction and personally reviewed by me in its entirety. I further attest, that it accurately reflects all work, treatment, procedures and medical decision -making performed by me. <Florida Swanson - Last Filed: 02/03/17 12:46> Diagnosis at time of Disposition: Head injury, Laceration, Syncope, Hypoglycemia - Discharge Dispostion Disposition: AGAINST MEDICAL ADVICE Condition at time of disposition: Unchanged/Unknown - Referrals Referrals: Sybil Lujan [Staff Physician] - - Patient Instructions Printed Discharge Instructions: DI for Syncope in Adults (Fainting), DI for Closed Head Injury
[2017-02-03 11:52] VITALS: BP 119/68; PULSE 63; TEMP 97.5; BMI 20.1
[2017-02-04 06:02] LABS: BASO % 1.1 % (0-2.0); EOS % 0.9 % (0-4.5); MCHC 33.6 g/dl (32.0-36.0); MEAN CELL VOLUME 92.3 fl (80-96); MEAN PLT VOLUME 8.6 fl (7.5-11.1); NEUT % 67.3 % (42.8-82.8); PLATELET COUNT 124 K/MM3 (134-434); RDW 14.8 % (11.6-15.6); WHITE BLOOD COUNT 4.9 K/mm3 (4.0-10.0)
[2017-02-04 06:21] LABS: INR 1.04 (0.82-1.09); PROTHROMBIN TIME (PATIENT) 11.8 SEC (9.98-11.88)
[2017-02-04 07:38] LABS: ALBUMIN 2.8 g/dl (3.4-5.0); ANION GAP 7 (8-16); BILIRUBIN,TOTAL 0.6 mg/dL (0.2-1.0); CALCIUM 8.2 mg/dL (8.5-10.1); CO2 29 mmol/L (21-32); CREATININE 0.9 mg/dL (0.55-1.02); GLUCOSE,RANDOM 99 mg/dL (74-106); MAGNESIUM 2.1 mg/dL (1.8-2.4); SGOT/AST 18 U/L (15-37); SGPT/ALT 15 U/L (12-78); TOT PROT 5.1 g/dl (6.4-8.2)
[2017-02-04 07:40] LABS: ALK PHOS 61 U/L (45-117); CPK 62 IU/L (26-192); TROPONIN I < 0.02 ng/ml (0.00-0.05)
--- NOTE | 2017-02-04 16:32 | EKG ---
Test Reason : Blood Pressure : / mmHG Vent. Rate : 067 BPM Atrial Rate : 067 BPM P-R Int : 150 ms QRS Dur : 094 ms QT Int : 420 ms P-R-T Axes : 096 046 044 degrees QTc Int : 443 ms POOR DATA QUALITY, INTERPRETATION MAY BE ADVERSELY AFFECTED NORMAL SINUS RHYTHM MODERATE VOLTAGE CRITERIA FOR LVH, MAY BE NORMAL VARIANT NONSPECIFIC ST ABNORMALITY ABNORMAL ECG WHEN COMPARED WITH ECG OF 23-JUL-2016 17:36, NONSPECIFIC T WAVE ABNORMALITY NOW EVIDENT IN INFERIOR LEADS Confirmed by FELIPE FERRELL MD ([id number]) on 02/04/2017 4:32:23 PM Referred By: Confirmed By:FELIPE FRERELL MD
== END 2017-02-03 12:40 | disposition left against medical advice (07) ==
LOC: JER 11:34
DX: Z53.21 Procedure and treatment not carried out due to patient leaving prior to being seen by health care provider (principal); I10 Essential (primary) hypertension
CPT/HCPCS: 36415; 80053; 82550; 83735; 83880; 84484; 85025; 85610; 85730; 93005; 93010; 99283-25

== ENCOUNTER 2017-02-03 13:38 | Observation (INO) | payer OTHER, MEDICARE ==
[2017-02-03 13:47] VITALS: BMI 18.3
--- NOTE | 2017-02-03 14:29 | PDOC ---
History of Present Illness - General Chief Complaint: Syncope/Near Syncope Stated Complaint: REVISIT (SYNCOPE) Time Seen by Provider: 02/03/17 14:26 - History of Present Illness Initial Comments: 02/03/17 15:48 The patient is an 81 year old female with no significant PMH who presents for evaluation following a syncopal episode. The patient was seen in the ED earlier today, but left AMA refusing any work up at the time. She is accompanied by her daughter who assists in providing the history. The patient reports that she was walking on her way home when she fell. The patient is a poor historian and does not recall the fall nor the circumstances of her fall. She does not recall any head trauma, but notes a laceration to her scalp. The daughter reports that the patient has had several syncopal episodes over the past year with this one being the 4th episode. She denies any lightheadedness, fevers, chills, chest pain, SOB, abdominal pain, or changes with urination or bowel movements. Past History - Past Medical History Allergies/Adverse Reactions: Allergies Allergy/AdvReac Type Severity Reaction Status Date / Time No Known Drug Allergies Allergy Verified 02/03/17 13:46 Home Medications: Ambulatory Orders NK [No Known Home Medication] 02/03/17 Anemia: No Asthma: No Cancer: Yes (SKIN) Cardiac Disorders: No CVA: No COPD: No CHF: No Dementia: No Diabetes: No GI Disorders: No Disorders: No HTN: Yes Hypercholesterolemia: No Liver Disease: No Seizures: No Thyroid Disease: No - Surgical History Abdominal Surgery: Yes (HERNIA REPAIR - LEFT) Appendectomy: No Cardiac Surgery: No Cholecystectomy: No Lung Surgery: No Neurologic Surgery: No Orthopedic Surgery: Yes (hip) - Immunization History Td Vaccination: Yes TDAP Vaccination: Yes Immunization Up to Date: No - Suicide/Smoking/Psychosocial Hx Smoking Status: No Smoking History: Never smoked Have you smoked in the past 12 months: No Number of Cigarettes Smoked Daily: 0 If you are a former smoker, when did you quit?: 40+ years ago Cigars Per Day: 0 Hx Alcohol Use: No Drug/Substance Use Hx: No Substance Use Type: None Hx Substance Use Treatment: No Review of Systems - Review of Systems Comments:: 02/03/17 15:57 Constitutional: No fevers, chills, fatigue, malaise HEENT: Head trauma. No Rhinorrhea, nasal congestion, visual changes Cardiovascular: Syncope. No chest pain, palpitations, lightheadedness Respiratory: No Cough, SOB, Hemoptysis, Gastrointestinal: No Abdominal pain, Nausea, Vomiting, Constipation, Diarrhea, Melena Genitourinary: No Dysuria, Frequency, Urgency, Hesitancy, Hematuria, Flank pain Musculoskeletal: No Myalgia, arthralgia Skin: No rashes, itching, bruising, pallor Neurologic: No Headache, Dizziness, Numbness, Weakness, or Tingling Psychiatric: No Hallucinations. No SI or HI *Physical Exam - Vital Signs Last Vital Signs Temp Pulse Resp BP Pulse Ox 74 20 142/83 100 02/03/17 13:43 02/03/17 13:43 02/03/17 13:43 02/03/17 13:43 - Physical Exam Comments: 02/03/17 15:59 General Appearance: Nourished. No Apparent Distress HEENT: 1cm superficial laceration noted to the posterior scalp. EOMI, RABIA. No Pharyngeal Erythema, Tonsillar Exudate, Tonsillar Erythema Neck: No Cervical Lymphadenopathy or C-spine tenderness. Respiratory/Chest: Lungs Clear, Normal Breath Sounds. No Crackles, Rales, Rhonchi, Wheezing Cardiovascular: Regular Rhythm, Regular Rate. 2/6 systolic murmur noted on exam. No Gallops, Rubs Gastrointestinal/Abdominal: Normal Bowel Sounds, Soft. No Guarding, Rebound, Tenderness Musculoskeletal: No CVA Tenderness Extremity: Normal Capillary Refill Integumentary: Normal Color, Dry, Warm Neurologic: library circulation assistant II-XII NML intact, Fully Oriented, Alert, Normal Mood/Affect, Normal Response, Motor Strength 5/5. Normal Finger to Nose and Heel to [place] Procedures - Laceration/Wound Repair Right Posterior Head Wound Length: to 2.5 cm Wound Explored: clean, no foreign body present Wound's Depth, Shape: superficial, linear Irrigated w/ Saline: Yes Wound Repaired With: [place] Number of Sutures: 1 Layer Closure: Yes ED Treatment Course - LABORATORY CBC & Chemistry Diagram: 02/03/17 15:55 02/03/17 15:55 Medical Decision Making - Medical Decision Making 02/03/17 16:01 The patient is an 81 year old female with no significant PMH who presents for evaluation following a syncopal episode. Differential includes but is not limited to: Intracranial bleed, anemia, arrythmia, infectious, metabolic derangement. Given the lack of details surrounding the patient's fall, it is presumed that she experienced a syncopal episode. Her previous syncopal episodes have had negative work ups thus far despite continued issues. We will obtain a cbc, cmp and ekg to evaluate for possible etiologies. We will obtain a head ct to evaluate for intracranial processes. We will continue to monitor and reassess. 02/03/17 18:10 Cbc is unremarkable. CMP demonstrates a small elevation in creatine to 1.1. Head ct is negative as read by our radiologist. We discussed the case with Dr. Lujan who requested that we observation admit to the hospitalist team. We discussed the case with the hospitalist team who accepted the patient for admission. We discussed the results and the plan with the patient who voiced understanding and is agreeable with the plan. *DC/Admit/Observation/Transfer Diagnosis at time of Disposition: Syncope Qualifiers: Syncope type: unspecified Qualified Code(s): R55 - Syncope and collapse - Discharge Dispostion Condition at time of disposition: Stable Admit: Yes - Referrals Referrals: Sybil Lujan [Primary Care Provider] - - Patient Instructions - Post Discharge Activity
--- NOTE | 2017-02-03 14:32 | PDOC ---
Attending Attestation - Resident Resident Name: Sloan Rhoades - ED Attending Attestation I have performed the following: I have examined & evaluated the patient, The case was reviewed & discussed with the resident, I agree w/resident's findings & plan, Exceptions are as noted - HPI HPI: 02/03/17 14:30 Syncope/Head Lac - Physicial Exam PE: 02/03/17 14:31 VSS/No cognitive impairment - Medical Decision Making 02/03/17 14:[address] Rhoades' Assessment and Plan
[2017-02-03 16:00] LABS: BASO % 0.4 % (0-2.0); EOS % 0.1 % (0-4.5); HEMOGLOBIN 13.3 GM/dL (10.7-15.3); LYMPH % 4.4 % (8-40); MCH 30.8 pg (25.7-33.7); MCHC 33.2 g/dl (32.0-36.0); MEAN CELL VOLUME 92.6 fl (80-96); MEAN PLT VOLUME 8.5 fl (7.5-11.1); MONO % 6.6 % (3.8-10.2); NEUT % 88.5 % (42.8-82.8); PLATELET COUNT 127 K/MM3 (134-434); RBC 4.33 M/mm3 (3.60-5.2); RDW 14.5 % (11.6-15.6)
[2017-02-03 16:31] LABS: ALBUMIN 3.8 g/dl (3.4-5.0); ALK PHOS 77 U/L (45-117); ANION GAP 13 (8-16); BILIRUBIN,TOTAL 0.8 mg/dL (0.2-1.0); CALCIUM 9.8 mg/dL (8.5-10.1); CHLORIDE 97 mmol/L (98-107); CO2 28 mmol/L (21-32); CREATININE 1.1 mg/dL (0.55-1.02); SGOT/AST 21 U/L (15-37); SGPT/ALT 19 U/L (12-78); SODIUM 138 mmol/L (136-145); TOT PROT 6.5 g/dl (6.4-8.2)
[2017-02-03 19:07] LABS: BLOOD UREA NITROGEN 29 mg/dL (7-18); GLUCOSE,RANDOM 90 mg/dL (74-106)
--- NOTE | 2017-02-03 19:26 | PN ---
Teaching Attending Note Name of Resident: Hussein Davidson ATTENDING PHYSICIAN STATEMENT I saw and evaluated the patient. I reviewed the resident's note and discussed the case with the resident. I agree with the resident's findings and plan as documented. SUBJECTIVE: 81 F with pmhx of Aortic insufficiency, hip replacement 2010, hernia repair X2 , and pulmonary nodules who was BIBA for syncope. She [place] conc[place] and had sustained a laceration to the back of her head. EMS had noted her BS to be low. No dizziness or lightheadedness, prior to event. PCP: Dr. Lujan OBJECTIVE: Physical: VS: Vital Signs Period Temp Pulse Resp BP Sys/Morel Pulse Ox Last 24 Hr 74 20 142/83 100 GEN: NAD, Resting in bed, AA0X3 HEENT: NCAT, PERRL, Throat without erythema or exudates CARD: RRR S1, S2 RESP: CTAB ABD: BSx4, NTD to palption EXT:- C/C/E CBCD WBC 9.0 K/mm3 (4.0-10.0) 02/03/17 15:55 RBC 4.33 M/mm3 (3.60-5.2) 02/03/17 15:55 Hgb 13.3 GM/dL (10.7-15.3) 02/03/17 15:55 Hct 40.0 % (32.4-45.2) 02/03/17 15:55 MCV 92.6 fl (80-96) 02/03/17 15:55 MCHC 33.2 g/dl (32.0-36.0) 02/03/17 15:55 RDW 14.5 % (11.6-15.6) 02/03/17 15:55 Plt Count 127 K/MM3 (134-434) L 02/03/17 15:55 MPV 8.5 fl (7.5-11.1) 02/03/17 15:55 CMP Sodium 138 mmol/L (136-145) 02/03/17 15:55 Potassium 4.0 mmol/L (3.5-5.1) 02/03/17 15:55 Chloride 97 mmol/L (98-107) L 02/03/17 15:55 Carbon Dioxide 28 mmol/L (21-32) 02/03/17 15:55 Anion Gap 13 (8-16) 02/03/17 15:55 BUN 29 mg/dL (7-18) H D 02/03/17 15:55 Creatinine 1.1 mg/dL (0.55-1.02) H D 02/03/17 15:55 Creat Clearance w eGFR 47.43 (>60) 02/03/17 15:55 Random Glucose 90 mg/dL (74-106) 02/03/17 15:55 Calcium 9.8 mg/dL (8.5-10.1) 02/03/17 15:55 Total Bilirubin 0.8 mg/dL (0.2-1.0) 02/03/17 15:55 AST 21 U/L (15-37) 02/03/17 15:55 ALT 19 U/L (12-78) 02/03/17 15:55 Alkaline Phosphatase 77 U/L (45-117) 02/03/17 15:55 Total Protein 6.5 g/dl (6.4-8.2) 02/03/17 15:55 Albumin 3.8 g/dl (3.4-5.0) 02/03/17 15:55 EKG: NSR 67, LVH QTC 443 CXR: PENDING CT HEAD- No acute intercranial hemmorage, Mild soft tissue hematoma overlying r. parietal bone. Mild age appropriate volume loss and mild microvascular ischemic changes similar to 07/24/[address] ASSESSMENT AND PLAN: 81 F with pmhx of Aortic insufficiency, hip replacement 2010, hernia repair X2 , and pulmonary nodules who was BIBA for loss of conciossness 1.) Loss of Conciousness - DDx: Vasovagal vs. Cardiogenic - Trend trop/ekg - Gentle IVf- + Orthostatics - CT Head as above - Echo/Carotid - Cardiac Monitoring 2.) Head Lac/Hematoma - S/P Medhat, Fu PCP to remove - Monitor CBC 3.) DVT Ppx - Scds Place in Obs- Tele
[2017-02-03] MEDS ORDERED: HEPARIN NA (PORCINE) 5,000 UNITS/ML 1ML VIAL SQ ONE (19:42)
[2017-02-03] MEDS ORDERED: SODIUM CHLORIDE 1,000 ML IV STA (19:42)
[2017-02-03] MEDS ORDERED: HEPARIN NA (PORCINE) 5,000 UNITS/ML 1ML VIAL ONE (20:00)
--- NOTE | 2017-02-03 20:17 | HP ---
CHIEF COMPLAINT: S/P Syncopal episode PCP: Dr. Lujan HISTORY OF PRESENT ILLNESS: Patient is an 81 year old female with a PMHx of 4 syncopal episodes in the last year with extensive work up done with no significant findings who was BIBEMS s/ p syncopal episode this afternoon. Patient reports she went to the post office this afternoon to buy stamps and waited in a long line outside the post office. Next thing she remembers is waking up in an ambulance. Patient has no recollection of what happened and is unable to provide any information of symptoms before during or after the episode. However, patient noticed a bloody laceration in the posterior aspect of her head. Patient was seen earlier in the ED but left AMA because she wanted her daughter to know what happened and was unable to get a hold of her. At my encounter she was accompanied by her daughter who provided information due to patient being a poor historian. Otherwise, patient denies fever, chills, nausea, vomiting, abdominal pain, chest pain, palpitations, shortness of breath, headaches, dizziness, diarrhea, constipation. ER course was notable for: (1) BUN/CREATININE of 29/1.1 (2) ekg wnl (3) Recent Travel: Denies PAST MEDICAL HISTORY: Denies PAST SURGICAL HISTORY: Hernia Repair x2, Hip replacement (2010) Social History: Smoking: Denies Alcohol: Denies Drugs: Denies Family History: Non-Contributory Allergies: No Known Drug Allergies Allergy (Verified 02/03/17 13:46) HOME MEDICATIONS: Home Medications Medication Instructions Recorded NK [No Known Home Medication] 02/03/17 REVIEW OF SYSTEMS CONSTITUTIONAL: Absent: fever, chills, diaphoresis, generalized weakness, malaise, loss of appetite, weight change HEENT: Absent: rhinorrhea, nasal congestion, throat pain, throat swelling, difficulty swallowing, mouth swelling, ear pain, eye pain, visual changes CARDIOVASCULAR: Absent: chest pain, syncope, palpitations, irregular heart rate, lightheadedness , peripheral edema RESPIRATORY: Absent: cough, shortness of breath, dyspnea with exertion, orthopnea, wheezing, stridor, hemoptysis GASTROINTESTINAL: Absent: abdominal pain, abdominal distension, nausea, vomiting, diarrhea, constipation, melena, hematochezia GENITOURINARY: Absent: dysuria, frequency, urgency, hesitancy, hematuria, flank pain, genital pain MUSCULOSKELETAL: Absent: myalgia, arthralgia, joint swelling, back pain, neck pain SKIN: Absent: rash, itching, pallor HEMATOLOGIC/IMMUNOLOGIC: Absent: easy bleeding, easy bruising, lymphadenopathy, frequent infections ENDOCRINE: Absent: unexplained weight gain, unexplained weight loss, heat intolerance, cold intolerance NEUROLOGIC: Syncopal episode Absent: headache, focal weakness or paresthesias, dizziness, unsteady gait, seizure, mental status changes, bladder or bowel incontinence PSYCHIATRIC: Absent: anxiety, depression, suicidal or homicidal ideation, hallucinations. PHYSICAL EXAMINATION Vital Signs - 24 hr 02/03/17 13:43 Pulse Rate 74 Respiratory 20 Rate Blood Pressure 142/83 O2 Sat by Pulse 100 Oximetry (%) GENERAL: Awake, alert, and fully oriented, in no acute distress. HEAD: 1cm linear laceration in the posterior aspect of the scalp with some bloody drainage EYES: Pupils equal, round and reactive to light, extraocular movements intact, sclera anicteric, conjunctiva clear. No lid lag. EARS, NOSE, THROAT: Oropharynx clear without exudates. Dry mucous membranes. NECK: Normal range of motion, supple without lymphadenopathy, JVD, or masses. LUNGS: Breath sounds equal, clear to auscultation bilaterally. No wheezes, and no crackles. No accessory muscle use. HEART: Regular rate and rhythm, normal S1 and S2 with diastolic murmur in the LSB ABDOMEN: Soft, nontender, not distended, normoactive bowel sounds, no guarding, no rebound, no masses. MUSCULOSKELETAL: No CVA tenderness. UPPER EXTREMITIES: 2+ pulses, warm, well-perfused. No cyanosis. No clubbing. No peripheral edema. LOWER EXTREMITIES: 2+ pulses, warm, well-perfused. No calf tenderness. No peripheral edema. NEUROLOGICAL: Cranial nerves II-XII intact. Normal speech. Normal gait. PSYCHIATRIC: Cooperative. Good eye contact. Appropriate mood and affect. SKIN: Warm, dry, normal turgor, no rashes or lesions noted, normal capillary refill. Laboratory Results - last 24 hr 02/03/17 02/03/17 15:55 15:55 WBC 9.0 RBC 4.33 Hgb 13.3 Hct 40.0 MCV 92.6 MCH 30.8 MCHC 33.2 RDW 14.5 Plt Count 127 L MPV 8.5 Neutrophils % 88.5 H Lymphocytes % 4.4 L D Monocytes % 6.6 Eosinophils % 0.1 Basophils % 0.4 Sodium 138 Potassium 4.0 Chloride 97 L Carbon Dioxide 28 Anion Gap 13 BUN 29 H D Creatinine 1.1 H D Creat Clearance w eGFR 47.43 Random Glucose 90 Calcium 9.8 Total Bilirubin 0.8 AST 21 ALT 19 Alkaline Phosphatase 77 Total Protein 6.[address] (02/03/17): Impression: 1. No acute intracranial hemorrhage, mass effects, midline shift or hydrocephalus. 2. Mild focal soft tissue swelling and hematoma overlying the high right parietal bone. No evidence of acute skull fracture. 3. Mild, generalized age-appropriate volume loss and mild microvascular ischemic changes, similar to 07/24/[address] ASSESSMENT/PLAN: Patient is an 81 year old female who was BIBEMS s/p syncopal episode. Patient was found to have positive orthostatics and PARVIN. Patient admitted for further monitoring and management. Syncopal Episode -Likely secondary to hypovolemia with vasovagal, rule out cardiac etiology -Patient's daughter reports this is her 4th episode since June. Extensive workup done before and nothing significant was found. -Positive orthostatics. Patients BP when laying down 152/87 and when standing up 106/64 -TSH, mg and phos ordered for any electrolyte abnormalities -U/A ordered to rule out any infectious etiology -Chest X-Ray ordered to rule out pneumonia -ECHO ordered for any valve abnormalities -Carotid doppler ordered -Lipid panel ordered -IV Bolus ordered and will maintain with IV NS @75mls/hr -Continuous cardiac monitoring Head Laceration s/p Fall from Syncopal Episode -1 staple and suture placed -Will follow up with PCP for removal -Keep wound dry and clean PARVIN -Likely pre-renal secondary to hypovolemia -BUN/Cr on this admission /.1. Last admission on 11/2016 patients Cr was 0.7 -Continue with IV NS @75mls/hr -Urine electrolytes ordered -Avoid nephrotoxic medications -Continue to monitor BMP F/E/N -IV NS @75mls/hr -Electrolytes wnl -Regular diet Prophylaxis -Low risk. SCD's for DVT -No GI required Disposition -Full code -Cardiac monitoring for any arrythmias with ECHO and carotid doppler pending. Will remain in observation for 24 hours. Visit type - Emergency Visit Emergency Visit: Yes ED Registration Date: 02/03/17 Care time: The patient presented to the Emergency Department on the above date and was hospitalized for further evaluation of their emergent condition. - New Patient This patient is new to me today: Yes Date on this admission: 02/03/17 - Critical Care Critical Care patient: No
[2017-02-03] MEDS ORDERED: SODIUM CHLORIDE 1,000 ML IV SCH (20:45)
[2017-02-03 21:09] LABS: INR 0.98 (0.82-1.09); PROTHROMBIN TIME (PATIENT) 11.1 SEC (9.98-11.88)
[2017-02-04 06:54] LABS: URINE APPEARANCE SLCLOUDY; URINE BILIRUBIN NEGATIVE (NEGATIVE); URINE BLOOD NEGATIVE (NEGATIVE); URINE COLOR YELLOW; URINE GLUCOSE (UA) NEGATIVE (NEGATIVE); URINE KETONE 1+ (NEGATIVE); URINE LEUK ESTERASE NEGATIVE (NEGATIVE); URINE NITRITE NEGATIVE (NEGATIVE); URINE PROTEIN NEGATIVE (NEGATIVE); URINE UROBILINOGEN NEGATIVE mg/dL (0.2-1.0)
[2017-02-04 07:18] LABS: HEMATOCRIT 35.6 % (32.4-45.2); HEMOGLOBIN 11.8 GM/dL (10.7-15.3); MCH 30.8 pg (25.7-33.7); MCHC 33.2 g/dl (32.0-36.0); MEAN CELL VOLUME 92.5 fl (80-96); MEAN PLT VOLUME 8.5 fl (7.5-11.1); PLATELET COUNT 121 K/MM3 (134-434); RBC 3.85 M/mm3 (3.60-5.2); RDW 14.8 % (11.6-15.6); WHITE BLOOD COUNT 4.8 K/mm3 (4.0-10.0)
[2017-02-04 08:10] LABS: ANION GAP 10 (8-16); BLOOD UREA NITROGEN 24 mg/dL (7-18); CALCIUM 8.8 mg/dL (8.5-10.1); CHLORIDE 105 mmol/L (98-107); CO2 26 mmol/L (21-32); CREATININE 0.9 mg/dL (0.55-1.02); GLUCOSE,RANDOM 82 mg/dL (74-106); POTASSIUM 3.6 mmol/L (3.5-5.1); SODIUM 141 mmol/L (136-145)
--- NOTE | 2017-02-04 16:05 | PN ---
Teaching Attending Note Name of Resident: Myra Meeks ATTENDING PHYSICIAN STATEMENT I saw and evaluated the patient. I reviewed the resident's note and discussed the case with the resident. I agree with the resident's findings and plan as documented. SUBJECTIVE: Patient is feeling better with no acute distress, no shortness of breath. OBJECTIVE: Vital Signs Temperature 98.5 F 02/04/17 13:47 Pulse Rate 52 L 02/04/17 13:47 Respiratory Rate 16 02/04/17 13:47 Blood Pressure 155/85 02/04/17 13:47 O2 Sat by Pulse Oximetry (%) 96 02/04/17 13:47 CBCD WBC 4.8 K/mm3 (4.0-10.0) 02/04/17 06:16 RBC 3.85 M/mm3 (3.60-5.2) 02/04/17 06:16 Hgb 11.8 GM/dL (10.7-15.3) 02/04/17 06:16 Hct 35.6 % (32.4-45.2) 02/04/17 06:16 MCV 92.5 fl (80-96) 02/04/17 06:16 MCHC 33.2 g/dl (32.0-36.0) 02/04/17 06:16 RDW 14.8 % (11.6-15.6) 02/04/17 06:16 Plt Count 121 K/MM3 (134-434) L 02/04/17 06:16 MPV 8.5 fl (7.5-11.1) 02/04/17 06:16 CMP Sodium 141 mmol/L (136-145) 02/04/17 06:16 Potassium 3.6 mmol/L (3.5-5.1) 02/04/17 06:16 Chloride 105 mmol/L (98-107) 02/04/17 06:16 Carbon Dioxide 26 mmol/L (21-32) 02/04/17 06:16 Anion Gap 10 (8-16) 02/04/17 06:16 BUN 24 mg/dL (7-18) H 02/04/17 06:16 Creatinine 0.9 mg/dL (0.55-1.02) 02/04/17 06:16 Creat Clearance w eGFR 47.43 (>60) 02/03/17 15:55 Random Glucose 82 mg/dL (74-106) 02/04/17 06:16 Calcium 8.8 mg/dL (8.5-10.1) 02/04/17 06:16 Total Bilirubin 0.8 mg/dL (0.2-1.0) 02/03/17 15:55 AST 21 U/L (15-37) 02/03/17 15:55 ALT 19 U/L (12-78) 02/03/17 15:55 Alkaline Phosphatase 77 U/L (45-117) 02/03/17 15:55 Total Protein 6.5 g/dl (6.4-8.2) 02/03/17 15:55 Albumin 3.8 g/dl (3.4-5.0) 02/03/17 15:55 CARDIAC ENZYMES Creatine Kinase 54 IU/L (26-192) 02/03/17 20:41 Troponin I < 0.02 ng/ml (0.00-0.05) 02/03/17 20:41 Home Medications Medication Instructions Recorded NK [No Known Home Medication] 02/03/17 EKG: NSR 67, LVH, QTC 443 CT HEAD- No acute intercranial hemmorage, Mild soft tissue hematoma overlying r. parietal bone. Mild age appropriate volume loss and mild microvascular ischemic changes similar to 07/24/[address] ASSESSMENT AND PLAN: 81 F with pmhx of Aortic insufficiency, hip replacement 2010, hernia repair X2 , and pulmonary nodules who was BIBA for loss of conciossness # Acute Loss of Conciousness most likely due to vasovagel. on IVF continue # Head Lac/Hematoma S/P Marcelo, Fu PCP to remove marcelo DVT Ppx: Scds discharge patient home ,discussed with Cardio, will arrange EP studies as an outpatient
[2017-02-04 16:45] VITALS: BP 134/93; PULSE 69; TEMP 98.3
--- NOTE | 2017-02-04 18:11 | CON.CARD ---
Consult Consult Specialty:: Cardiology Referred by:: Hospitalist Medicine Reason for Consultation:: Syncope - History of Present Illness Chief Complaint: Syncope History of Present Illness: Patient is an 81 year old female with history of pulmonary nodules, aortic valve disease with aortic valve regurgitation, hypertension, status post hip surgery and hernia surgery, previous syncope admitted for recurrent syncope. She denies chest pain, shortness of breath, near syncope or palpitations, paroxysmal nocturnal dyspnea, prodromal sxs or orthopnea. Patient was diagnosed with pulmonary nodules which apparently have not changed. She has had head CT, carotid Doppler, echo all unremarkable, no events on telemetry. Last saw Dr. Martinez 10/2015. - History Source History Provided By: Patient Limitations to Obtaining History: No Limitations - Past Medical History Pulmonary: Yes: COPD, Other (lung nodule) Musculoskeletal: Yes: Osteoarthritis - Alcohol/Substance Use Hx Alcohol Use: No History of Substance Use: reports: None - Smoking History Smoking history: Never smoked Have you smoked in the past 12 months: No Aproximately how many cigarettes per day: 0 If you are a former smoker, when did you quit?: 40+ years ago - Social History ADL: Independent History of Recent Travel: No Home Medications - Allergies Allergies/Adverse Reactions: Allergies Allergy/AdvReac Type Severity Reaction Status Date / Time No Known Drug Allergies Allergy Verified 02/03/17 13:46 - Home Medications Home Medications: Ambulatory Orders NK [No Known Home Medication] 02/03/17 Review of Systems - Review of Systems Neurological: reports: Syncope Vital Signs: Vital Signs Temperature 98.3 F 02/04/17 16:44 Pulse Rate 69 02/04/17 16:44 Respiratory Rate 16 02/04/17 16:44 Blood Pressure 134/93 02/04/17 16:44 O2 Sat by Pulse Oximetry (%) 97 02/04/17 16:44 Constitutional: Yes: No Distress, Calm Neck: Yes: Supple Respiratory: Yes: Regular, CTA Bilaterally Gastrointestinal: Yes: Normal Bowel Sounds, Soft Cardiovascular: Yes: Regular Rate and Rhythm JVD: No Carotid Bruit: No Heart Sounds: Yes: S1, S2 Edema: No - Other Data Labs, Other Data: CBC, BMP 02/04/17 06:16 02/04/17 06:16 INR, PTT INR 0.98 (0.82-1.09) 02/03/17 20:30 Troponin, BNP 02/03/17 20:41 Troponin I < 0.02 Troponin, BNP 02/03/17 20:41 Troponin I < 0.02 NSR @ [address] changes Problem List - Problems (1) Syncope Code(s): R55 - SYNCOPE AND COLLAPSE Qualifiers: Syncope type: unspecified Qualified Code(s): R55 - Syncope and collapse (2) Aortic regurgitation Code(s): I35.1 - NONRHEUMATIC AORTIC (VALVE) INSUFFICIENCY Qualifiers: Cardiac valve disease etiology: nonrheumatic Qualified Code(s): I35.1 - Nonrheumatic aortic (valve) insufficiency (3) Laceration Code(s): DSX7148 - Assessment/Plan 02/04/2017 Echo: Mild cLVH, normal LV size and fxn, mild TR, AR, mod MO RVSP 30- 40 mmHg 1. Syncope - neurocardiogenic, orthostatic 2. Head lac/hematoma 3. Acute on CKD improved P:1. No events on telemetry 2. May d/c from CV-standpoint, given recurrent episodes of syncope, would consider EP evaluation for upright tilt table testing, EP study and implantable loop recorder if unrevealing, f/u with Dr. Martinez [phone]. 3. Thank you for consultative opportunity
--- NOTE | 2017-02-04 19:32 | DS ---
Physical Exam: SUBJECTIVE: Patient seen and examined. Offers no complaints. No further episodes of syncope. Denies GIRALDO, chest pain, shortness of breath, fever, chills, abdominal pain. OBJECTIVE: Vital Signs Period Temp Pulse Resp BP Sys/Morel Pulse Ox Last 24 Hr 97.9 F-98.7 F 52-69 15-20 134-155/66-96 96-98 PHYSICAL EXAM GENERAL: thin, elderly woman lying comfortably in bed, nad, aaox3 HEAD: superficial, small laceration on posterior head s/p staple, c/d/i EYES: sclera anicteric, conjunctiva clear ENT: MMM LUNGS: CTAB, no wheezes, rales, or rhonchi HEART: rrr, normal s1/s2, no jvd ABDOMEN: soft, ntnd, normoactive BS LOWER EXTREMITIES: 2+ DP pulses, wwp, no edema LABS CBC, BMP 02/04/17 06:16 02/04/17 06:16 Hepatic Panel Total Bilirubin 0.8 mg/dL (0.2-1.0) 02/03/17 15:55 AST 21 U/L (15-37) 02/03/17 15:55 ALT 19 U/L (12-78) 02/03/17 15:55 Alkaline Phosphatase 77 U/L (45-117) 02/03/17 15:55 Albumin 3.8 g/dl (3.4-5.0) 02/03/17 15:55 Troponin, BNP 02/03/17 20:41 Troponin I < 0.02 EKG 02/04/17: NSR 67, LVH, no ischemic changes, QTc 443 HOSPITAL COURSE: Date of Admission:02/03/17 Date of Discharge: 02/04/17 Pre-admission Course: 81yo woman with PMH of 4 syncopal episodes within the past year w/o clear etiology, hip replacement 2011, hernia repair X2, and pulmonary nodules who was BIBEMS for syncope. [place] and sustained a laceration to the back of her head. No dizziness or lightheadedness prior to event. EMS noted her blood glucose to be low. ER course was notable for: (1) non-con Head CT - no acute intracranial hemorrhage (2) superficial 2.5cm laceration on posterior aspect of head was cleaned and sutured with 1 staple (3) EKG wnl Subsequent Hospital course: Patient was admitted for observation for further work-up of her syncopal episode. She had positive orthostatics and received gentle IV fluid hydration. No events identified on cardiac telemetry. Cardiac work-up was unrevealing:EKG was wnl, troponin negative, ECHO wnl, and carotid artery dopplers with no hemodynamically significant stenosis. Cardiology was consulted, and recommended close out-patient follow-up for upright tilt table testing, EP study, and implantable loop recorder if unrevealing. Patient's initial labs were notable for PARVIN (Cr 1.1), which improved with hydration. IMAGING: Head CT non-contrast (02/03/17): FINDINGS: There is no acute intracranial hemorrhage or focal extra-axial collection. There is no compelling evidence of acute, territorial transcortical infarct. MRI is more sensitive in detecting acute infarction. There is generalized, age appropriate volume loss. There is no mass effect, midline shift or hydrocephalus. Mild patchy hypoattenuation in the deep cerebral white matter, which appears grossly similar to 07/24/[address], likely mild microvascular ischemic changes. There is calcific atherosclerosis along bilateral internal carotid artery siphons, left worse than right). There is a partially empty sella turcica. There is mild soft tissue swelling and hematoma overlying the right parietal bone. The calvarium is intact. The visualized paranasal sinuses and mastoid air cells are clear. IMPRESSION: 1. No acute intracranial hemorrhage, mass effects, midline shift or hydrocephalus. 2. Mild focal soft tissue swelling and hematoma overlying the high right parietal bone. No evidence of acute skull fracture. 3. Mild, generalized age-appropriate volume loss and mild microvascular ischemic changes, similar to 07/24/[address] CXR 02/03/17: Imaging reveals little change since 07/23/2016. Again noted are well expanded lung valencia with prominent mediastinum and scoliosis. A discrete infiltrate or gross nodular changes are not seen. For better evaluation, further imaging with CT may be of help. Bilateral carotid doppler U/S (02/04/17): The exam was performed utilizing grayscale as well as color flow and spectral Doppler sonography. There is no sonographic evidence of a hemodynamically significant extracranial carotid artery stenosis (reported ultrasound sensitivity 90%). Mild atherosclerotic plaque formation is seen at the level of the carotid artery bifurcations. The vertebral arteries appear patent demonstrating antegrade flow. IMPRESSION: Patent vertebral arteries. There is no Doppler evidence of a high-grade carotid artery stenosis. ECHO 02/04/17: Mild concentric LVH, LVEF normal, no LV wall motion abnormalities, RV normal size/function, trace MR, mild TR, RV systolic pressure elevated 30-40mmHg, mild AI, mod MS. Consults: Cardiology: Dr. Caputo/Dr. Michelle Meeks MD PGY1- Internal Medicine Minutes to complete discharge: 45 Discharge Summary Reason For Visit: SYNCOPE Current Active Problems Syncope (Acute) Condition: Stable - Instructions Diet, Activity, Other Instructions: You were admitted to the hospital for syncope (loss of consciousness) likely from dehydration. Imaging of your head was normal. An ultrasound of your heart showed normal function with some mild valve murmurs. Imaging of your carotid arteries showed normal blood flow with mild stenosis at the bifurcations. Recommendations: -You can resume your regular daily activities and diet. Drink plenty of fluids and keep yourself hydrated. Medications: -You can resume your regular home medications. Follow-ups: -Please see your primary care physician, Dr. Sybil Lujan, within 1 week for removal of the suture in your head and discussion of nutrition. You may consider consultation with a Plumbing Engineering Draftsperson. -Please call Dr. Franki Martinez tomorrow (02/05) to schedule an upright tilt table testing. His office number is [phone]. Please return to the Emergency Department if you have worsening symptoms, lose consciousness, chest pain, shortness of breath, or any new or concerning symptoms. Referrals: Sybil Lujan [Primary Care Provider] - Franki Martinez MD [Staff Physician] - Disposition: HOME - Home Medications Comprehensive Discharge Medication List: Ambulatory Orders NK [No Known Home Medication] 02/03/17 This patient is new to me today: Yes Date on this admission: 02/04/17 Emergency Visit: Yes ED Registration Date: 02/03/17 Care time: The patient presented to the Emergency Department on the above date and was hospitalized for further evaluation of their emergent condition. Critical Care patient: No - Discharge Referral Referred to [facility] Med P.C.: No
== END 2017-02-04 19:30 | disposition home or self-care (01) ==
LOC: JER 13:38 → JERBED 18:15
PROVIDERS: ADMIT Internal Medicine; ATTEND Internal Medicine
PROC: 0HQ0XZZ Repair Scalp Skin, External Approach (ICD-10-PCS; principal; 2017-02-03)
PROC: 3E0337Z Introduction of Electrolytic and Water Balance Substance into Peripheral Vein, Percutaneous Approach (ICD-10-PCS; 2017-02-03)
PROC: 3E033GC Introduction of Other Therapeutic Substance into Peripheral Vein, Percutaneous Approach (ICD-10-PCS; 2017-02-03)
DX: R55 Syncope and collapse (principal); I10 Essential (primary) hypertension; Z85.828 Personal history of other malignant neoplasm of skin; I35.1 Nonrheumatic aortic (valve) insufficiency; R91.8 Other nonspecific abnormal finding of lung field; S01.01XA Laceration without foreign body of scalp, initial encounter; W18.39XA Other fall on same level, initial encounter; Y93.01 Activity, walking, marching and hiking; Y92.89 Other specified places as the place of occurrence of the external cause; N17.9 Acute kidney failure, unspecified
CPT/HCPCS: 36415; 70450-TC; 71010-TC; 80048; 80053; 80061; 81003; 82436; 82550; 83721; 83735; 83880; 84100; 84133; 84300; 84443; 84484; 85025; 85027; 85610; 85730; 93005; 93010; 93306-TC; 93880-TC; 99283-25; 99284-25; G0378; J1644

== ENCOUNTER 2017-02-11 11:14 | Emergency (ER) | payer OTHER, MEDICARE ==
[2017-02-11 11:32] VITALS: BP 145/85; PULSE 58; TEMP 97; BMI 17.7
--- NOTE | 2017-02-11 12:36 | PDOC ---
Suture Removal/Wound Check HPI - History of Present Illness Chief Complaint: Suture/Staple Removal(Here) Stated Complaint: STAPLE/SUTURE REMOVAL (HERE) Time Seen by Provider: 02/11/17 11:44 History Source: Yes: Patient, Family. No: Care Provider, Legal Guardian(s), Parent(s), EMS, Sibling, Significant Other, Spouse, Friend, Co-worker, [employer] Developer Used, Law Enforcement, [employer] Records, Old Records, Other, Primary Care Provider, Pt declined [employer] Developer, Unavil. due to pt. cond. Exam Limitations: Yes: No Limitations. No: Clinical Condition, Dementia, Intoxication, Intubated, Language Barrier, Physical Impairment, Unresponsive, Other Treated at: [facility] Date of Last ED visit: 02/03/17 - Previous ED Treatment Type of procedure performed on last visit: Yes: Laceration Repair Tetanus Immunization: Yes: Not given @ last ED visit Antibiotics Prescribed: No - Onset of Previous Treatment Date of Occurence: 02/03/17 Timing/Duration/Severity of Onset: denies: Prior to presentation, This morning, This afternoon, This evening, Today, Yesterday, Sudden, Gradual, Changing over time, Getting worse, Other comment Comment:: 02/11/17 12:43 81yo Female patient accompanied by Daughter presents to ED for staple removal. Daughter states she went to PCP office and was told they do not remove marcelo. Daughter denies any other complaints at this time. No focal deficit reported at this time. Past History - Travel Traveled outside of the country in the last 30 days: No Close contact w/someone who was outside of country & ill: No - Past Medical History Allergies/Adverse Reactions: Allergies Allergy/AdvReac Type Severity Reaction Status Date / Time No Known Drug Allergies Allergy Verified 02/11/17 11:32 Home Medications: Ambulatory Orders NK [No Known Home Medication] 02/03/17 Anemia: No Asthma: No Cancer: Yes (SKIN) Cardiac Disorders: No CVA: No COPD: No CHF: No Dementia: No Diabetes: No GI Disorders: No Disorders: No HTN: Yes Hypercholesterolemia: No Liver Disease: No Seizures: No Thyroid Disease: No - Surgical History Abdominal Surgery: Yes (HERNIA REPAIR - LEFT) Appendectomy: No Cardiac Surgery: No Cholecystectomy: No Lung Surgery: No Neurologic Surgery: No Orthopedic Surgery: Yes (hip) - Immunization History Td Vaccination: Yes TDAP Vaccination: Yes Immunization Up to Date: No - Suicide/Smoking/Psychosocial Hx Smoking Status: No Smoking History: Never smoked Have you smoked in the past 12 months: No Number of Cigarettes Smoked Daily: 0 If you are a former smoker, when did you quit?: 40+ years ago Cigars Per Day: 0 Hx Alcohol Use: No Drug/Substance Use Hx: No Substance Use Type: None Hx Substance Use Treatment: No Suture Removal/Wound Check PE - Physical Exam Laceration/Wound Check Symptoms: reports: None. denies: Pain, Fever, Chills, Redness, Discharge, Bleeding, Numbness, Weakness, Improved, Persistent, Worsening, Resolved, Other Comment Pain Intensity: 0 Current Severity Level: None Maximum Severity Level: None Pain Localization: None Location of Laceration/Wound: left: Head *Review of Systems - Review of Systems Able to Perform ROS?: No Integumentary: Yes: Other (Staple removal) All Other Systems: Reviewed and Negative Medical Decision Making - Medical Decision Making 02/11/17 12:45 One staple removed from posterior scalp with out complications. Instructions on wound care discussed with daughter. Patient to return if any concerns for further evaluation. *DC/Admit/Observation/Transfer Diagnosis at time of Disposition: Laceration - Discharge Dispostion Disposition: HOME Condition at time of disposition: Improved Admit: No - Referrals Referrals: Sybil Lujan [Primary Care Provider] - - Patient Instructions Printed Discharge Instructions: DI for Suture Removal Additional Instructions: Follow up with PCP as needed. Return if symptoms worsen or any concerns for further evaluation. Print Language: BURKINAN - Post Discharge Activity
== END 2017-02-11 12:55 | disposition home or self-care (01) ==
LOC: JERFT 11:14
DX: Z48.02 Encounter for removal of sutures (principal)
CPT/HCPCS: 99281-25

== ENCOUNTER 2017-09-24 16:55 | Emergency (ER) | payer OTHER, MEDICARE ==
--- NOTE | 2017-09-24 17:18 | PDOC ---
History of Present Illness - History of Present Illness Initial Comments: 09/24/17 18:07 The patient is a 82 year old female, with a significant PMH of syncope episodes , left total hip replacement 2010, who presents to the emergency department via EMS for evaluation s/p trip and fall prior to arrival. As per EMS, the patient was reported to trip and fall from standing while walking outside on even pavement. The patient reports she was walking outside in the heat when she felt fatigued and lowered herself onto the ground. She reports a bystander notified EMS. She denies any preceding chest pain, lightheadedness, dizziness, palpitations, shortness of breath, or nausea before the fall. The patient denies any syncope or loss of consciousness. The patient at presentation denies any pain or complaints. The patient denies chest pain, shortness of breath, headache and dizziness. Denies fever, chills, nausea, vomit, diarrhea and constipation. Denies dysuria, frequency, urgency and hematuria. Allergies: NKA Past surgical history: left total hip replacement 2010 Social history: No reported, lives at home in [place]. PCP: Dr Lujan <Emmanuel Vivar - Last Filed: 09/24/17 18:07> - General History Source: Patient Exam Limitations: No Limitations <Marian Bonilla - Last Filed: 09/26/17 00:33> - General Chief Complaint: Injury Stated Complaint: TRIP & FALL Time Seen by Provider: 09/24/17 17:18 Past History <Emmanuel Vivar - Last Filed: 09/24/17 18:07> - Past Medical History Anemia: No Asthma: No Cancer: Yes (SKIN) Cardiac Disorders: No CVA: No COPD: No CHF: No Dementia: No Diabetes: No GI Disorders: No Disorders: No HTN: Yes Hypercholesterolemia: No Liver Disease: No Seizures: No Thyroid Disease: No - Surgical History Abdominal Surgery: Yes (HERNIA REPAIR - LEFT) Appendectomy: No Cardiac Surgery: No Cholecystectomy: No Lung Surgery: No Neurologic Surgery: No Orthopedic Surgery: Yes (hip) - Immunization History Td Vaccination: Yes TDAP Vaccination: Yes Immunization Up to Date: No - Suicide/Smoking/Psychosocial Hx Smoking Status: No Smoking History: Never smoked Have you smoked in the past 12 months: No Number of Cigarettes Smoked Daily: 0 If you are a former smoker, when did you quit?: 40+ years ago Cigars Per Day: 0 Hx Alcohol Use: No Drug/Substance Use Hx: No Substance Use Type: None Hx Substance Use Treatment: No <Marian Bonilla - Last Filed: 09/26/17 00:33> - Past Medical History Allergies/Adverse Reactions: Allergies Allergy/AdvReac Type Severity Reaction Status Date / Time No Known Drug Allergies Allergy Verified 09/24/17 17:20 Home Medications: Ambulatory Orders NK [No Known Home Medication] 02/03/17 Review of Systems - Review of Systems Comments:: 09/24/17 18:10 GENERAL/CONSTITUTIONAL: No fever or chills. No weakness. HEAD, EYES, EARS, NOSE AND THROAT: No change in vision. No ear pain or discharge. No sore throat. CARDIOVASCULAR: No chest pain or shortness of breath. RESPIRATORY: No cough, wheezing, or hemoptysis. GASTROINTESTINAL: No nausea, vomiting, diarrhea or constipation. GENITOURINARY: No dysuria, frequency, or change in urination. MUSCULOSKELETAL: No joint or muscle swelling or pain. No neck or back pain. SKIN: No rash NEUROLOGIC: No headache, vertigo, loss of consciousness, or change in strength/ sensation. ENDOCRINE: No increased thirst. No abnormal weight change. HEMATOLOGIC/LYMPHATIC: No anemia, easy bleeding, or history of blood clots. ALLERGIC/IMMUNOLOGIC: No hives or skin allergy. <Emmanuel Vivar - Last Filed: 09/24/17 18:07> *Physical Exam - Vital Signs Last Vital Signs Temp Pulse Resp BP Pulse Ox 99.4 F 90 18 108/60 95 09/24/17 17:15 09/24/17 17:15 09/24/17 17:15 09/24/17 17:15 09/24/17 17:15 - Physical Exam Comments: 09/24/17 18:10 GENERAL: Awake, alert, and fully oriented, in no acute distress HEAD: No signs of trauma EYES: PERRLA, EOMI, sclera anicteric, conjunctiva clear ENT: Auricles normal inspection, hearing grossly normal, nares patent, oropharynx clear without exudates. Moist mucosa NECK: Normal ROM, supple, no lymphadenopathy, JVD, or masses LUNGS: Breath sounds equal, clear to auscultation bilaterally. No wheezes, and no crackles HEART: Regular rate and rhythm, normal S1 and S2, no murmurs, rubs or gallops ABDOMEN: Soft, nontender, normoactive bowel sounds. No guarding, no rebound. No masses EXTREMITIES: +Mutiple ecchymosis noted on upper extremities bilaterally. + Ecchymosis around the right eye. Normal range of motion, no edema. No clubbing or cyanosis. No cords or tenderness. NEUROLOGICAL: Cranial nerves II through XII grossly intact. Normal speech. SKIN: Warm, Dry, normal turgor, no rashes or lesions noted. <Emmanuel Vivar - Last Filed: 09/24/17 18:07> ED Treatment Course - LABORATORY CBC & Chemistry Diagram: 09/24/17 19:20 09/24/17 19:20 <Marian Bonilla - Last Filed: 09/26/17 00:33> Medical Decision Making - Medical Decision Making 09/24/17 18:[address] Lujan. Call returned and case discussed. <Emmanuel Vivar - Last Filed: 09/24/17 18:07> - Medical Decision Making 09/24/17 18:54 Ms Maldonado is a rodney 82-year-old female presented to emergency department with a complaint of fall Per EMS, pt tripped Per patient she was warm and brought herself to the ground No Chest pain No LOC No amnesia No focal weakness or numbness On examination: Right eye bruising No head trauma No cervical spine tenderness to palpation RRR CTA multiple bruises on the extremities Will do: Labs EKG CT head, c spine, facial bones Xrays wound care Re assess EKG: SR rate of 64 bpm, axis nml, intervals nml, no st elevations or depressions, t waves upright, LVH 09/24/17 19:[address] Lujan Pt can be discharge to home if no abnormalities Pt lives alone but has a daughter near by Pt signed out to Dr Chester <Marian Bonilla - Last Filed: 09/26/17 00:33> *DC/Admit/Observation/Transfer - Attestations Scribe Attestion: 09/24/17 18:12 Documentation prepared by Emmanuel Vivar, acting as clinical specialist medical device for Marian Bonilla MD. <Emmanuel Vivar - Last Filed: 09/24/17 18:07> <Marian Bonilla - Last Filed: 09/26/17 00:33> Diagnosis at time of Disposition: Skin avulsion, Multiple contusions, Fall - Discharge Dispostion Disposition: HOME Condition at time of disposition: Good - Referrals Referrals: Sybil Lujan [Primary Care Provider] - - Patient Instructions Printed Discharge Instructions: How to Prevent Falls Additional Instructions: Tylenol as needed for pain. Return to the emergency department immediately with ANY new, persistent or worsening symptoms. Continue any medications as previously prescribed by your physician. You should follow up with your primary doctor as soon as possible regarding today's emergency department visit. . Please make sure your doctor reviews the results of your emergency evaluation. Thank you for coming to the Emergency Department today for your care. It was a pleasure to see you today. Please note that your evaluation is INCOMPLETE until you follow-up with your doctor. - Post Discharge Activity
[2017-09-24 17:50] VITALS: BP 108/60; PULSE 90; TEMP 99.4; BMI 18.8
[2017-09-24] MEDS ORDERED: ACETAMINOPHEN 325 MG TABLET (FP) PO ONE (17:55)
[2017-09-24] MEDS ORDERED: ACETAMINOPHEN 325 MG TABLET (FP) ONE (18:21)
[2017-09-24] MEDS ORDERED: BENZOIN/ALOE VERA/STORAX/TOLU 58 ML BOTTLE ONE (19:05)
[2017-09-24 19:35] LABS: BASO % 0.9 % (0-2.0); EOS % 2.4 % (0-4.5); HEMATOCRIT 34.5 % (32.4-45.2); LYMPH % 14.8 % (8-40); MCH 30.7 pg (25.7-33.7); MEAN CELL VOLUME 95.9 fl (80-96); MONO % 10.1 % (3.8-10.2); NEUT % 71.8 % (42.8-82.8); PLATELET COUNT 130 K/MM3 (134-434); RBC 3.59 M/mm3 (3.60-5.2); RDW 14.3 % (11.6-15.6); WHITE BLOOD COUNT 5.2 K/mm3 (4.0-10.8)
--- NOTE | 2017-09-24 19:39 | PDOC ---
*Physical Exam - Vital Signs Last Vital Signs Temp Pulse Resp BP Pulse Ox 99.4 F 90 18 108/60 95 09/24/17 17:15 09/24/17 17:15 09/24/17 17:15 09/24/17 17:15 09/24/17 17:15 ED Treatment Course - LABORATORY CBC & Chemistry Diagram: 09/24/17 19:20 09/24/17 19:20 - ADDITIONAL ORDERS Additional order review: 09/24/17 19:20 RBC 3.59 L MCV 95.9 MCHC 32.0 RDW 14.3 MPV 8.0 Neutrophils % 71.8 Lymphocytes % 14.8 Monocytes % 10.1 Eosinophils % 2.4 Basophils % 0.9 - Medications Given in the ED: ED Medications Discontinued Medications Generic Name Dose Route Start Last Admin Trade Name Freq PRN Reason Stop Dose Admin Acetaminophen 650 mg 09/24/17 17:55 09/24/17 18:23 Tylenol - PO 09/24/17 17:56 650 mg ONCE ONE Administration Progress Note - Progress Note Progress Note: Care of this patient was transferred to me from Dr. Bonilla at 1900 hrs. Patient is an 82-year-old female who tripped and fell at home. Patient denies any complaints of pain however she does have multiple areas of ecchymosis and contusions. As well as some skin tears. Patient has a workup that is pending. Including CAT scans of the head and facial bones and neck Blood work including CBC, EKG. Dr. Lujan was contacted by Dr. Bonilla who says a workup on patient is negative that he recommends she be discharged and he will see her in his office early next week. Head CT was negative for any acute pathology Patient bones CT was negative for any fractures or acute pathology Cervical spine CT was negative for any acute fracture or subluxation or pathology. Knee x-rays were read by me they were negative for any acute pathology or fractures Patient's CBC was normal with a normal white count and no left shift Patient's chemistries did show a mildly low decrease in patient's potassium of 3.3 so patient given 40 mEq of Yissel Dur by mouth prior to discharge Patient discharged home will follow-up with her primary care doctor Wednesday *DC/Admit/Observation/Transfer Diagnosis at time of Disposition: Skin avulsion, Multiple contusions Fall Qualifiers: Encounter type: initial encounter Qualified Code(s): W19.XXXA - Unspecified fall, initial encounter - Discharge Dispostion Disposition: HOME Condition at time of disposition: Good Decision to Admit order: No - Referrals Referrals: Sybil Lujan [Primary Care Provider] - - Patient Instructions Printed Discharge Instructions: How to Prevent Falls Additional Instructions: Tylenol as needed for pain. Return to the emergency department immediately with ANY new, persistent or worsening symptoms. Continue any medications as previously prescribed by your physician. You should follow up with your primary doctor as soon as possible regarding today's emergency department visit. . Please make sure your doctor reviews the results of your emergency evaluation. Thank you for coming to the Emergency Department today for your care. It was a pleasure to see you today. Please note that your evaluation is INCOMPLETE until you follow-up with your doctor. - Post Discharge Activity
[2017-09-24 19:49] LABS: ALBUMIN 3.4 g/dl (3.5-5.0); ALK PHOS 52 U/L (32-92); ANION GAP 6 (8-16); BILIRUBIN,TOTAL 0.4 mg/dl (0.2-1.0); BLOOD UREA NITROGEN 42 mg/dl (7-18); CALCIUM 8.9 mg/dl (8.4-10.2); CHLORIDE 104 mmol/L (98-107); CO2 29 mmol/L (22-28); CREATININE 1.2 mg/dl (0.6-1.3); GLUCOSE,RANDOM 103 mg/dl (74-106); POTASSIUM 3.3 mmol/L (3.5-5.1); SGOT/AST 29 U/L (10-42); SGPT/ALT 17 U/L (10-40); SODIUM 139 mmol/L (136-145); TOT PROT 5.6 g/dl (6.4-8.3)
[2017-09-24] MEDS ORDERED: POTASSIUM CHLORIDE TABS 20 MEQ TABLET.ER (FP) PO ONE ×2 (20:31→20:34)
--- NOTE | 2017-09-26 08:56 | EKG ---
Test Reason : Blood Pressure : / mmHG Vent. Rate : 064 BPM Atrial Rate : 064 BPM P-R Int : 164 ms QRS Dur : 088 ms QT Int : 420 ms P-R-T Axes : 095 062 051 degrees QTc Int : 433 ms NORMAL SINUS RHYTHM VOLTAGE CRITERIA FOR LEFT VENTRICULAR HYPERTROPHY ABNORMAL ECG WHEN COMPARED WITH ECG OF 03-FEB-2017 12:01, T WAVE AMPLITUDE HAS INCREASED IN LATERAL LEADS Confirmed by MARIAELENA MEYER, FELIPE ([id number]) on 09/26/2017 8:55:48 AM Referred By: MD LYNN Confirmed By:FELIPE FERRELL MD
== END 2017-09-24 21:03 | disposition home or self-care (01) ==
LOC: FER 16:55 → SUPCPDRO 16:55 → FER 21:03
DX: S40.029A Contusion of unspecified upper arm, initial encounter (principal); S00.11XA Contusion of right eyelid and periocular area, initial encounter; W18.39XA Other fall on same level, initial encounter; Y93.89 Activity, other specified; Y92.410 Unspecified street and highway as the place of occurrence of the external cause; I10 Essential (primary) hypertension; Z87.891 Personal history of nicotine dependence
CPT/HCPCS: 36415; 70450-TC; 70486-TC; 71045-TC-FY; 72125-TC; 73562-TC-LT-FY; 73562-TC-RT-FY; 80053; 84484; 85025; 93005; 99283-25

== ENCOUNTER 2018-12-26 16:51 | Emergency (ER) | payer OTHER, MEDICARE ==
[2018-12-26 16:58] VITALS: TEMP 97.9; BMI 18.3
--- NOTE | 2018-12-26 17:00 | PDOC ---
Rapid Medical Evaluation Time Seen by Provider: 12/26/18 16:54 Medical Evaluation: Allergies Allergy/AdvReac Type Severity Reaction Status Date / Time No Known Drug Allergies Allergy Verified 09/24/17 17:20 12/26/18 16:55 Pt presents for evaluation of b/l ankle swelling. Her daughter states that her ankles were normal on Wednesday. Denies falling. Also has a skin tear to the R arm. Exam: 2+ pitting edema to the legs b/l. Lungs CTAB Orders; labs, EKG, CXR Pt presents to the ER for furhter evaluation Discharge Disposition - Diagnosis Skin avulsion, Ankle swelling - Referrals - Patient Instructions - Post Discharge Activity
--- NOTE | 2018-12-26 19:21 | PDOC ---
Documentation entered by Indra Mcmillan SCRIBE, acting as scribe for Lidya Hull MD. Lidya Hull MD: This documentation has been prepared by the [place] Nirvannie, SCRIBE, under my direction and personally reviewed by me in its entirety. I confirm that the documentation accurately reflects all work, treatment, procedures, and medical decision making performed by me. Attending Attestation - Resident Resident Name: Jolanta Qiu - ED Attending Attestation I have performed the following: I have examined & evaluated the patient, The case was reviewed & discussed with the resident, I agree w/resident's findings & plan - HPI HPI: 12/26/18 19:19 83-year-old female presents with bilateral lower extremity edema this started 2 days ago - Physicial Exam PE: 12/26/18 19:19 Petite alert 83-year-old female in no acute distress Head normocephalic atraumatic Neck no bruits, no JVD Lungs no wheezing, no rails CVS regular rate and rhythm S1-S2 Abdomen flat,nontender Extremities b/l LE edema,no erythema, L > R Skin there is a 4 cm avulsive skin tear on her right elbow that is about a week old, no cellulitis, no drainage Neuro alert and oriented x2, moving all extremities 12/26/18 19:26 - Medical Decision Making 12/26/18 19:21 diff diagnosis includes CHF, occult cancer with DVTs, liver or renal or kidney failure 12/26/18 21:50 CBC and chemistries essentially unremarkable Lower duplex Doppler is negative for any acute deep vein thrombosis Chest x-ray does not show any congestive heart failure BNP slightly bumped to 425 with high normal being 450 She has no respiratory symptoms, no shortness of breath, no chest pain no exertional dyspnea Patient was discharged with lower extremity edema with a plan to follow-up with Dr. Sybil Lujan this week
--- NOTE | 2018-12-26 19:22 | PDOC ---
History of Present Illness - General Chief Complaint: Edema Stated Complaint: ANKLE SWOLLEN Time Seen by Provider: 12/26/18 16:54 - History of Present Illness Initial Comments: 12/26/18 19:55 HPI: 83 y/o F with hx of syncopal events with subsequent hospital admissions with negative cardiac workup presenting with 1-2 days of BL LE edema. The daughter at the bedside stated that her mother mentioned them this morning, however, thinks it has been occurring for a couple days. She denies any pain, trauma, falls, or inciting events. She denies fever, chills, GIRALDO, LH, dizziness, chest pain, SOB, abd pain, n/v, dysuria, weakness. She also reports a skin tear that occured 6 days ago that hasnt healed yet. PMHx: as noted above ROS: as noted SHx: Denies tobacco use; no alcohol use; no rec drugs Allergies: NKDA ROS: GENERAL/CONSTITUTIONAL: No fever or chills. No weakness. HEAD, EYES, EARS, NOSE AND THROAT: No change in vision. No ear pain or discharge. No sore throat. CARDIOVASCULAR: No chest pain or shortness of breath RESPIRATORY: No cough, wheezing, or hemoptysis. GASTROINTESTINAL: No nausea, vomiting, diarrhea or constipation. GENITOURINARY: No dysuria, frequency, or change in urination. MUSCULOSKELETAL: No joint or muscle swelling or pain. No neck or back pain. SKIN: No rash NEUROLOGIC: No headache, vertigo, loss of consciousness, or change in strength/ sensation. ENDOCRINE: No increased thirst. No abnormal weight change HEMATOLOGIC/LYMPHATIC: No anemia, easy bleeding, or history of blood clots. ALLERGIC/IMMUNOLOGIC: No hives or skin allergy. PE: GENERAL: Awake, alert, no acute distress HEAD: No signs of trauma, normocephalic, atraumatic EYES: EOMI, sclera anicteric, conjunctiva clear ENT: Auricles normal inspection, hearing grossly normal, nares patent, oropharynx clear without exudates. Moist mucosa NECK: Normal ROM, no lymphadenopathy LUNGS: No increased work of breathing, symmetrical chest rise, clear to auscultation bilaterally, no wheezes, crackles or rhonchi HEART: Regular rate and rhythm, normal S1 and S2, no murmurs, peripheral pulses 2+ and equal bilaterally. BL LE 2+ pitting edema L>R ABDOMEN: Soft, nondistended, nontender, normoactive bowel sounds. No guarding, no rebound. No masses. No CVAT EXTREMITIES: Normal inspection, Normal range of motion, no edema. No clubbing or cyanosis. NEUROLOGICAL: Cranial nerves II through XII grossly intact. Normal speech, normal gait, no focal sensorimotor deficits SKIN: Warm, Dry, normal turgor, right elbow 4cm skin tear without actively bleeding Past History - Past Medical History Allergies/Adverse Reactions: Allergies Allergy/AdvReac Type Severity Reaction Status Date / Time No Known Drug Allergies Allergy Verified 12/26/18 16:58 Home Medications: Ambulatory Orders NK [No Known Home Medication] 02/03/17 Anemia: No Asthma: No Cancer: Yes (SKIN) Cardiac Disorders: No CVA: No COPD: No CHF: No Dementia: No Diabetes: No GI Disorders: No Disorders: No HTN: Yes Hypercholesterolemia: No Liver Disease: No Seizures: No Thyroid Disease: No - Surgical History Abdominal Surgery: Yes (HERNIA REPAIR - LEFT) Appendectomy: No Cardiac Surgery: No Cholecystectomy: No Lung Surgery: No Neurologic Surgery: No Orthopedic Surgery: Yes (hip) - Immunization History Td Vaccination: Yes TDAP Vaccination: Yes Immunization Up to Date: No - Psycho Social/Smoking Cessation Hx Smoking Status: No Smoking History: Former smoker Have you smoked in the past 12 months: No Number of Cigarettes Smoked Daily: 0 If you are a former smoker, when did you quit?: 50 YEARS AGO Cigars Per Day: 0 Information on smoking cessation initiated: No Hx Alcohol Use: No Drug/Substance Use Hx: No Substance Use Type: None Hx Substance Use Treatment: No *Physical Exam - Vital Signs Last Vital Signs Temp Pulse Resp BP Pulse Ox 97.9 F 71 14 175/85 H 97 12/26/18 16:54 12/26/18 16:54 12/26/18 16:54 12/26/18 16:54 12/26/18 16:54 ED Treatment Course - LABORATORY CBC & Chemistry Diagram: 12/26/18 18:50 12/26/18 18:50 Medical Decision Making - Medical Decision Making 12/26/18 20:18 83 y/o F with hx of syncopal events with subsequent hospital admissions with negative cardiac workup presenting with 1-2 days of isolated BL LE edema. VSS, AF. PE ntoable for BL LE edema L>R. Skin tear is stable and not amenable to repair -cbc, cmp, bnp, ekg, cxr, BL LE doppler 12/26/18 21:41 Duplex without signs of DVT CXR without fluid overload; lucency present in left mid lung labs not grossly significant discussed with patient results and retunr pcxn; comfortable with DC home and pcp followup Discharge - Discharge Information Problems reviewed: Yes Clinical Impression/Diagnosis: Skin avulsion, Ankle swelling Condition: Stable Disposition: HOME - Follow up/Referral Referrals: Sybil Lujan [Primary Care Provider] - - Patient Discharge Instructions Patient Printed Discharge Instructions: DI for Peripheral Edema -- Bilateral Additional Instructions: Additional Instructions: Please return to the emergency department with any new or worsening symptoms or concerns including chest pain, shortness of breath, signs of infection of legs, fainting, fever. Please follow up with your primary care physician within 48hours for further evaluation of lower leg swelling as well as chest Xray lucency Maintain skin tear open to air at home; may cover with gauze when out. May use bacitracin ointment - Post Discharge Activity
[2018-12-26 19:24] LABS: BASO % 1.7 % (0-2.0); EOS % 4.1 % (0-4.5); HEMATOCRIT 37.6 % (32.4-45.2); HEMOGLOBIN 12.5 GM/dL (10.7-15.3); LYMPH % 23.9 % (8-40); MCH 31.5 pg (25.7-33.7); MCHC 33.1 g/dl (32.0-36.0); MEAN CELL VOLUME 95.3 fl (80-96); MEAN PLT VOLUME 9.2 fl (7.5-11.1); MONO % 10.8 % (3.8-10.2); NEUT % 59.5 % (42.8-82.8); PLATELET COUNT 163 K/MM3 (134-434); RBC 3.95 M/mm3 (3.60-5.2); RDW 15.5 % (11.6-15.6); WHITE BLOOD COUNT 4.9 K/mm3 (4.0-10.0)
[2018-12-26 19:24] LABS: URINE APPEARANCE CLEAR; URINE BILIRUBIN NEGATIVE (NEGATIVE); URINE COLOR YELLOW; URINE GLUCOSE (UA) NEGATIVE (NEGATIVE); URINE KETONE NEGATIVE (NEGATIVE); URINE LEUK ESTERASE NEGATIVE (NEGATIVE); URINE NITRITE NEGATIVE (NEGATIVE); URINE PROTEIN NEGATIVE (NEGATIVE); URINE UROBILINOGEN 0.2 mg/dL (0.2-1.0)
[2018-12-26 20:00] LABS: ALBUMIN 3.8 g/dl (3.4-5.0); BILIRUBIN,TOTAL 0.5 mg/dL (0.2-1); BLOOD UREA NITROGEN 26.3 mg/dL (7-18); CALCIUM 9.6 mg/dL (8.5-10.1); POTASSIUM 4.6 mmol/L (3.5-5.1); TOT PROT 6.7 g/dl (6.4-8.2)
[2018-12-26 22:06] VITALS: BP 161/89; PULSE 73
--- NOTE | 2018-12-27 08:23 | PDOC ---
Patient Follow-up (Call Back) - Post ED Follow - Up Condition at time of discharge: Stable Disposition at time of original discharge: HOME - Disposition Additional Instructions/Notes: Received call from radiologist that patient's CXR showed new nodule along L heart border Patient was called and notified of results; advised f/u with her PCP.
--- NOTE | 2018-12-27 09:53 | EKG ---
Test Reason : Blood Pressure : / mmHG Vent. Rate : 058 BPM Atrial Rate : 058 BPM P-R Int : 198 ms QRS Dur : 092 ms QT Int : 422 ms P-R-T Axes : 087 139 147 degrees QTc Int : 414 ms POOR DATA QUALITY, INTERPRETATION MAY BE ADVERSELY AFFECTED SINUS BRADYCARDIA LATERAL INFARCT , AGE UNDETERMINED ABNORMAL ECG WHEN COMPARED WITH ECG OF 24-SEP-2017 18:57, QRS AXIS SHIFTED RIGHT LATERAL INFARCT IS NOW PRESENT T WAVE INVERSION NOW EVIDENT IN LATERAL LEADS Confirmed by MD EBENEZER, RANCHO ([id number]) on 12/27/2018 9:53:09 AM Referred By: Confirmed By:RANCHO SOL MD
== END 2018-12-26 22:00 | disposition home or self-care (01) ==
LOC: JER 16:51
DX: M25.471 Effusion, right ankle (principal); M25.472 Effusion, left ankle; S51.811A Laceration without foreign body of right forearm, initial encounter; X58.XXXA Exposure to other specified factors, initial encounter; Y93.89 Activity, other specified; Y92.89 Other specified places as the place of occurrence of the external cause; Y99.8 Other external cause status; I10 Essential (primary) hypertension; Z87.891 Personal history of nicotine dependence
CPT/HCPCS: 36415; 71046-TC-FY; 80053; 81003; 83880; 85025; 93005; 93010; 93970-TC; 99283-25

== ENCOUNTER 2019-03-31 11:38 | Inpatient (IN) | payer OTHER, MEDICARE ==
--- NOTE | 2019-03-31 12:17 | PDOC ---
History of Present Illness - General Chief Complaint: Injury Stated Complaint: FALL Past History - Past Medical History Allergies/Adverse Reactions: Allergies Allergy/AdvReac Type Severity Reaction Status Date / Time No Known Drug Allergies Allergy Verified 12/26/18 16:58 Home Medications: Ambulatory Orders NK [No Known Home Medication] 02/03/17 Anemia: No Asthma: No Cancer: Yes (SKIN) Cardiac Disorders: No CVA: No COPD: No CHF: No Dementia: No Diabetes: No GI Disorders: No Disorders: No HTN: Yes Hypercholesterolemia: No Liver Disease: No Seizures: No Thyroid Disease: No - Surgical History Abdominal Surgery: Yes (HERNIA REPAIR - LEFT) Appendectomy: No Cardiac Surgery: No Cholecystectomy: No Lung Surgery: No Neurologic Surgery: No Orthopedic Surgery: Yes (hip) - Immunization History Td Vaccination: Yes TDAP Vaccination: Yes Immunization Up to Date: No - Psycho Social/Smoking Cessation Hx Smoking Status: No Smoking History: Never smoked Have you smoked in the past 12 months: No Number of Cigarettes Smoked Daily: 0 If you are a former smoker, when did you quit?: 50 YEARS AGO Cigars Per Day: 0 Hx Alcohol Use: No Drug/Substance Use Hx: No Substance Use Type: None Hx Substance Use Treatment: No *Physical Exam - Vital Signs Last Vital Signs Temp Pulse Resp BP Pulse Ox 97.9 F 72 19 153/83 98 03/31/19 12:04 03/31/19 11:40 03/31/19 11:40 03/31/19 11:40 03/31/19 11:40 03/31/19 12:44 83 y/o with no reported PMH BIBEMS 2/2 food local delivery driver claiming pt was found on the floor. Pt is very pleasant and (self)aware. She denies she fell and is aware of past episodes of falling. She offers no complaints this AM. She takes no home meds, has tried no new meds/supplements/herbs. She has not been recently ill, had sick contacts, or traveled. She denies dysuria, hematuria, diarrhea. Per triage report EMS found pt on floor. Will care conserivatively for syncope. PE AOx3, dry mucous membranes, kyphosis with stage 1 pressure ulcer aprox at t2-t3 region, BL UE healed lesions, BL LE 1+ edema up to knee A/P Syncope vs mechanical fall vs orthostatic hypotension - CBC, CMP, UA, U cx, CPK - Cardiac profile, cont cardiac monitoring - CT head, CT spine 03/31/19 13:15 Further history with daughter Viridiana at bedside. Viridiana was not present for incident as pt lives alone but returned to lock home after [place] police/EMS left front door closed. Of note daughter and pt corroborate that pt had urinary incontinence near sofa and was wiping floor with paper towels. Possible that food local delivery driver witnessed this. Pt normally walks without assistance at home and with a cane when outdoors. Orthostatic hypotention NEGATIVE recumbent 149/81, hr 101; seated upright 144/91 , he 106 Pt going for head/cervical CT now 03/31/19 15:46 CPK 1,359 No current evidence of HF or h/o HF. Will provide 1 L bolus. 03/31/19 16:[address] Lujan for admission to telemetry ED Treatment Course - LABORATORY CBC & Chemistry Diagram: 03/31/19 14:15 03/31/19 14:15 Discharge - Discharge Information Problems reviewed: Yes Clinical Impression/Diagnosis: Syncope Qualifiers: Syncope type: unspecified Qualified Code(s): R55 - Syncope and collapse Rhabdomyolysis Qualifiers: Rhabdomyolysis type: non-traumatic Qualified Code(s): M62.82 - Rhabdomyolysis - Follow up/Referral Referrals: Sybil Lujan [Primary Care Provider] - - Patient Discharge Instructions - Post Discharge Activity Addendum entered and electronically signed by Patel Hutchinson, RESIDENT 23:43: ED Progress Note - Progress Note Progress Note: REVIEW OF SYSTEMS CONSTITUTIONAL: Absent: fever, chills, diaphoresis, generalized weakness, malaise, loss of appetite, weight change HEENT: Absent: rhinorrhea, nasal congestion, throat pain, throat swelling, difficulty swallowing, mouth swelling, ear pain, eye pain, visual changes CARDIOVASCULAR: Absent: chest pain, syncope, palpitations, irregular heart rate, lightheadedness , peripheral edema RESPIRATORY: Absent: cough, shortness of breath, dyspnea with exertion, orthopnea, wheezing, stridor, hemoptysis GASTROINTESTINAL: Absent: abdominal pain, abdominal distension, nausea, vomiting, diarrhea, constipation, melena, hematochezia GENITOURINARY: Absent: dysuria, frequency, urgency, hesitancy, hematuria, flank pain, genital pain MUSCULOSKELETAL: Absent: myalgia, arthralgia, joint swelling, back pain, neck pain SKIN: Absent: rash, itching, pallor HEMATOLOGIC/IMMUNOLOGIC: Absent: easy bleeding, easy bruising, lymphadenopathy, frequent infections ENDOCRINE: Absent: unexplained weight gain, unexplained weight loss, heat intolerance, cold intolerance NEUROLOGIC: Absent: headache, focal weakness or paresthesias, dizziness, unsteady gait, seizure, mental status changes, bladder or bowel incontinence PSYCHIATRIC: Absent: anxiety, depression, suicidal or homicidal ideation, hallucinations. GENERAL: AOx3, in no acute distress, pleasant, HEAD: NCAT EYES: JANAY, EOMI, conjunctiva clear. ENT: Ears normal, nares patent, oropharynx clear without exudates. Moist mucous membranes. NECK: Normal range of motion, supple without lymphadenopathy, JVD, or masses. LUNGS: CTAB. No wheezes, and no crackles. No accessory muscle use. HEART: RRR s1 s2 ABDOMEN: Soft, BS present in all 4 quadrants, non-distended, no JVD, MUSCULOSKELETAL: Kyphosis. No bony deformities or tenderness. No CVA tenderness. UPPER EXTREMITIES: Diffuse healed lesions BL UE. 2+ pulses, warm, well- perfused. No cyanosis. No clubbing. No peripheral edema. LOWER EXTREMITIES: 2+ pulses, warm, well-perfused. No calf tenderness. 1+ edema up to the knee NEUROLOGICAL: No focal deficits. Cranial nerves II-XII intact. Normal speech. Gait not appreciated. PSYCHIATRIC: Cooperative. Good eye contact. Appropriate mood and affect. SKIN: 1 cm pressure ulcer/area of erythema at approx t2-t3 level. Warm, dry, normal turgor, normal capillary refill.
--- NOTE | 2019-03-31 12:33 | PDOC ---
Attending Attestation - Resident Resident Name: Patel Hutchinson - ED Attending Attestation I have performed the following: I have examined & evaluated the patient, The case was reviewed & discussed with the resident, I agree w/resident's findings & plan - HPI HPI: 03/31/19 13:47 83YOF with a significant past medical history of syncopal episodes who presents to the emergency department BIB EMS s/p possible syncope. Patient reports to the ED today after her food delivery service provider allegedly found her down on the ground. Patient does not recall any recent falls and is unaware why she is currently in the ED. She notes that she is currently asymptomatic. no complaints here. She takes no home meds, has tried no new meds/supplements/ herbs. She has not been recently ill, had sick contacts, or travel history. She denies dysuria, hematuria, diarrhea. Per triage report EMS found pt on floor by food delivery. Further history with daughter Viridiana at bedside. Viridiana was not present for incident as pt lives alone but returned to lock home after [place] police/EMS left front door closed. Of note daughter and pt corroborate that pt had urinary incontinence near sofa and was wiping floor with paper towels. Possible that food solutions delivery consultant witnessed this. Pt normally walks without assistance at home and with a cane when outdoors. Allergies: None Past Medical History: Syncopal episodes. Social history: Lives with family. No tobacco, ETOH or drug use. Surgical history: Meds: as documented in EMR PMD: Dr. Lujan 03/31/19 13:49 - Physicial Exam PE: 03/31/19 12:33 Agree with the resident's HPI and PE as documented in the electronic medical record. NAD, well appearing, GCS 15, EOMI, PERRL, nl conjunctiva, anicteric; dry mucus membranes, neck supple. lungs clear, RRR, abdomen soft nontender. no rebound, guarding. Back nontender. SURESH x4, no focal neuro deficits. No peripheral edema. normal color for ethnicity, WWP. kyphosis with stage 1 pressure ulcer aprox at t2-t3 region, BL UE healed lesions , BL LE 1+ edema up to knee 03/31/19 12:33 03/31/19 13:48 - Medical Decision Making 03/31/19 12:33 Vital Signs Temp Pulse Resp BP Pulse Ox 97.9 F 72 19 153/83 98 03/31/19 12:04 03/31/19 11:40 03/31/19 11:40 03/31/19 11:40 03/31/19 11:40 Orthostatic hypotention NEGATIVE. recumbent 149/81, hr 101; seated upright 144/ 91, he 106 no fever, no tachy, sats normal DDx. syncope: considered interval abnormalities including short QTC or long QT syndrome, WPW, conduction abnormality, [place], ACS, PE, electrolyte disturbances, metabolic derangement. seizure, PROCESS IMPROVEMENT SPECIALIST lesion, CVA, ICH. vasovagal episode. rhabdomyolysis, Neuro exam is nonfocal, not consistent with CVA or primary neurologic abnormality. EKG normal sinus rhythm at 66 bpm, no interval abnormalities, narrow QRS, ST and T wave segments and morphology normal. CTH neg for bleed/cva, chronic microvascular changes. C spine degenerative changes labs and lytes trop neg, reassuring ck elevated !1300s, babita with mild rhabdomyolysis. Cr normal reassuring given IVF hydration, no cardiac issues or CHF dispo: admit for rhabdo, observation, hydration. 03/31/19 13:51 03/31/19 17:02 Heart Score/ECG Review #1 ECG reviewed & interpreted by me at: 12:20 General ECG Interpretation: Sinus Rhythm, Normal Rate, Normal Intervals 03/31/19 12:33 EKG normal sinus rhythm at 66 bpm, no interval abnormalities, narrow QRS, ST and T wave segments and morphology normal.
[2019-03-31] MEDS ORDERED: SODIUM CHLORIDE 500 ML IV STA (12:53)
[2019-03-31 14:39] LABS: HEMATOCRIT 38.5 % (32.4-45.2); HEMOGLOBIN 13.1 GM/dL (10.7-15.3); MCH 31.8 pg (25.7-33.7); MCHC 33.9 g/dl (32.0-36.0); MEAN CELL VOLUME 93.7 fl (80-96); MEAN PLT VOLUME 8.9 fl (7.5-11.1); PLATELET COUNT 155 K/MM3 (134-434); RBC 4.11 M/mm3 (3.60-5.2); RDW 15.9 % (11.6-15.6); WHITE BLOOD COUNT 8.2 K/mm3 (4.0-10.0)
--- NOTE | 2019-03-31 15:07 | EKG ---
Test Reason : Blood Pressure : / mmHG Vent. Rate : 066 BPM Atrial Rate : 066 BPM P-R Int : 168 ms QRS Dur : 084 ms QT Int : 434 ms P-R-T Axes : 073 053 057 degrees QTc Int : 454 ms NORMAL SINUS RHYTHM MODERATE VOLTAGE CRITERIA FOR LVH, MAY BE NORMAL VARIANT Confirmed by JELENA ADAMS MD ([id number]) on 03/31/2019 3:06:40 PM Referred By: Confirmed By:JELENA ADAMS MD
[2019-03-31 15:24] LABS: ALBUMIN 3.3 g/dl (3.4-5.0); BILIRUBIN,TOTAL 1.4 mg/dL (0.2-1); BLOOD UREA NITROGEN 35.2 mg/dL (7-18); CALCIUM 9.3 mg/dL (8.5-10.1); CREATININE 0.9 mg/dL (0.55-1.3); POTASSIUM 4.3 mmol/L (3.5-5.1); TOT PROT 6.3 g/dl (6.4-8.2)
[2019-03-31] MEDS ORDERED: SODIUM CHLORIDE 1,000 ML IV STA (15:49)
--- NOTE | 2019-04-01 06:16 | HP ---
Admitting History and Physical - Primary Care Physician PCP: Sybil Lujan S - Admission Chief Complaint: confusion History of Present Illness: 83YOF with a significant past medical history of syncopal episodes who presents to the emergency department BIB EMS s/p possible syncope. Patient reported to the ED yesterday after her food delivery service provider allegedly found her down on the ground. Patient does not recall any recent falls and is unaware why she is currently in the ED. She notes that she is currently asymptomatic but she seems confused. She takes no home meds, has tried no new meds/supplements/herbs. She has not been recently ill, had sick contacts, or travel history. She denies dysuria, hematuria, diarrhea. Per triage report EMS found pt on floor by food delivery. Further history with daughter Viridiana / phone. Viridiana was not present for incident as pt lives alone but returned to lock home after [place] police/EMS left front door closed. Of note daughter and pt corroborate that pt had urinary incontinence near sofa and was wiping floor with paper towels. Possible that food delivery route driver witnessed this. Pt normally walks without assistance at home and with a cane when outdoors. History Source: Patient, Family Member, Medical Record Limitations to Obtaining History: No Limitations - Past Medical History Pulmonary: Yes: COPD, Other (lung nodule) Musculoskeletal: Yes: Osteoarthritis - Smoking History Smoking history: Never smoked Have you smoked in the past 12 months: No Aproximately how many cigarettes per day: 0 If you are a former smoker, when did you quit?: 50 YEARS AGO - Alcohol/Substance Use Hx Alcohol Use: No History of Substance Use: reports: None - Social History Usual Living Arrangement: Yes: Alone Do you think of yourself as: Straight/Heterosexual ADL: Independent History of Recent Travel: No Home Medications - Allergies Allergies/Adverse Reactions: Allergies Allergy/AdvReac Type Severity Reaction Status Date / Time No Known Drug Allergies Allergy Verified 12/26/18 16:58 - Home Medications Home Medications: Ambulatory Orders NK [No Known Home Medication] 02/03/17 Family Medical History Family History: Unremarkable Review of Systems - Review of Systems Constitutional: denies: Fever Eyes: denies: Blurred Vision HENT: denies: Ear Pain, Epistaxis Neck: denies: Stiffness, Tenderness Cardiovascular: denies: Chest Pain, Shortness of Breath Respiratory: denies: Cough, SOB Gastrointestinal: denies: Abdominal Pain, Diarrhea, Vomiting Genitourinary: denies: Dysuria, Flank Pain Musculoskeletal: denies: Back Pain, Joint Swelling Integumentary: reports: Wound (stage 1/2 back). denies: Bruising Neurological: reports: Confusion. denies: Dizziness, Headache, Seizure Hematology/Lymphatic: denies: Easily Bruised Psychiatric: denies: Anxiety, Depression, Suicidal Physical Examination Vital Signs: Vital Signs Temperature 98.4 F 04/01/19 02:00 Pulse Rate 76 04/01/19 02:00 Respiratory Rate 04/01/19 02:00 Blood Pressure 167/81 04/01/19 02:00 O2 Sat by Pulse Oximetry (%) 99 03/31/19 21:45 Constitutional: Yes: No Distress, Calm Eyes: Yes: Conjunctiva Clear HENT: Yes: Atraumatic Neck: Yes: Supple Cardiovascular: Yes: Regular Rate and Rhythm Respiratory: Yes: CTA Bilaterally Gastrointestinal: Yes: Soft. No: Tenderness Renal/: No: Hematuria Musculoskeletal: No: Joint Stiffness, Joint Swelling Extremities: No: Cold, Cool Edema: No Integumentary: Yes: Pressure Ulcer (back stage 1-2), Venous Stasis Changes Neurological: Yes: Alert, Confusion. No: Oriented, Seizure, Weakness ...Motor Strength: WNL Psychiatric: Yes: Alert. No: Oriented, Agitated, Suicidal Ideation Labs: CBC, BMP 03/31/19 14:15 03/31/19 14:15 Imaging - Results Cat Scan: Report Reviewed Other: Report Reviewed Assessment/Plan 83YOF with a significant past medical history of syncopal episodes who presents to the emergency department BIB EMS s/p possible syncope, fall, confusion; UA 10 WBC r/o UTI UCx sent IV ATB cardio, neurology eval pelvic, hips xrays CXR DVT decubs falls aspiration pfx d/w pt and staff d/w pt's daughter Viridiana ? phone; prognosis guarded.
[2019-04-01 06:28] LABS: BASO % 0.5 % (0-2.0); EOS % 0.2 % (0-4.5); HEMATOCRIT 32.4 % (32.4-45.2); HEMOGLOBIN 11.2 GM/dL (10.7-15.3); LYMPH % 4.6 % (8-40); MCH 32.2 pg (25.7-33.7); MCHC 34.7 g/dl (32.0-36.0); MEAN CELL VOLUME 92.9 fl (80-96); MEAN PLT VOLUME 8.4 fl (7.5-11.1); MONO % 10.7 % (3.8-10.2); PLATELET COUNT 134 K/MM3 (134-434); RBC 3.49 M/mm3 (3.60-5.2); RDW 15.6 % (11.6-15.6); WHITE BLOOD COUNT 8.5 K/mm3 (4.0-10.0)
[2019-04-01 07:03] LABS: ALBUMIN 2.8 g/dl (3.4-5.0); BILIRUBIN,TOTAL 1.1 mg/dL (0.2-1); BLOOD UREA NITROGEN 29.4 mg/dL (7-18); CALCIUM 8.3 mg/dL (8.5-10.1); CREATININE 0.8 mg/dL (0.55-1.3); N-TERMINAL BNP 1508.7 pg/ml (5-450); POTASSIUM 3.4 mmol/L (3.5-5.1); TOT PROT 5.2 g/dl (6.4-8.2)
[2019-04-01] MEDS: HEPARIN NA (PORCINE) 5,000 UNITS/ML 1ML VIAL SQ SCH ×2 (10:18→21:53)
--- NOTE | 2019-04-01 11:54 | CONSULT ---
Consult - text type - Consultation Consultation Note: Neurology HPI: 83YOF with a significant past medical history of syncopal episodes who presented to the emergency department via EMS s/p possible syncope. Patient reported to the ED yesterday night, after her food delivery service provider allegedly found her down on the ground. Patient does not recall any recent falls. She noted that she is currently asymptomatic with no complaints here. She takes no home meds, has not tried any new meds/supplements/herbs. She has not been recently ill, had sick contacts, or travel history. She denies dysuria , hematuria, diarrhea. Daughter Viridiana reported patient lives alone but returned to lock home after [place] police/EMS left front door closed. Of note, daughter and pt corroborate that pt had urinary incontinence near sofa and was wiping floor with paper towels. Possible that food delivery department supervisor witnessed this. Pt normally walks without assistance at home and with a cane when outdoors. Head CT, no acute pathology. Cervical Spine CT, anterolisthesis of C3 on C4, C7 on T1, miltilevel disc narrowing, no evidence of acute fracture. Patient in good spirits and without significant complaint. Seen in manager cath lab area and neurologically stable. - Past Medical History Pulmonary: Yes: COPD, Other (lung nodule) Musculoskeletal: Yes: Osteoarthritis - Past Surgical History: No - Smoking History Smoking history: Never smoked Have you smoked in the past 12 months: No Aproximately how many cigarettes per day: 0 If you are a former smoker, when did you quit?: 50 YEARS AGO - Alcohol/Substance Use Hx Alcohol Use: No History of Substance Use: reports: None - Social History ADL: Independent History of Recent Travel: No - Family History HTN Allergies Allergy/AdvReac Type Severity Reaction Status Date / Time No Known Drug Allergies Allergy Verified 12/26/18 16:58 Ambulatory Orders NK [No Known Home Medication] 02/03/17 Active Medications Heparin Sodium (Porcine) (Heparin -) 5,000 unit SQ BID MADIHA Last Admin: 04/01/19 10:18 Dose: 5,000 unit REVIEW OF SYSTEMS CONSTITUTIONAL: Absent: fever, chills, diaphoresis, + generalized weakness, malaise HEENT: Absent: rhinorrhea, nasal congestion, throat pain, throat swelling, difficulty swallowing, mouth swelling, ear pain, eye pain, visual changes CARDIOVASCULAR: Absent: chest pain, syncope, palpitations, irregular heart rate, lightheadedness , peripheral edema RESPIRATORY: Absent: cough, shortness of breath, dyspnea with exertion, orthopnea, wheezing, stridor, hemoptysis GASTROINTESTINAL: Absent: abdominal pain, abdominal distension, nausea GENITOURINARY: Absent: dysuria, frequency, urgency, MUSCULOSKELETAL: Absent: myalgia, SKIN: Absent: rash, itching, pallor HEMATOLOGIC/IMMUNOLOGIC: Absent: easy bleeding, easy bruising, lymphadenopathy, frequent infections ENDOCRINE: Absent: unexplained weight gain, unexplained weight loss, heat intolerance, cold intolerance NEUROLOGIC: Absent: headache, focal weakness or paresthesias, dizziness, seizure, PSYCHIATRIC: Absent: anxiety, depression, suicidal or homicidal ideation, hallucinations. Physical Examination Vital Signs Period Temp Pulse Resp BP Sys/Morel Pulse Ox Last 24 Hr 97.4 F-98.7 F 64-86 18-20 124-167/71-109 98-100 Constitutional: Yes: Well Nourished, No Distress, Calm Eyes: Yes: WNL, Conjunctiva Clear, EOM Intact, PERRL HENT: Yes: WNL, Atraumatic, Normocephalic Neck: Yes: Supple, Trachea Midline, Tenderness (right anterior aspect- TTP) Cardiovascular: Yes: WNL, Regular Rate and Rhythm, S1, S2 Respiratory: Yes: WNL, Regular, CTA Bilaterally Musculoskeletal: Yes: WNL Extremities: Yes: WNL Edema: No Peripheral Pulses WNL: Yes Integumentary: Yes: WNL Neurological: Yes: WNL, Alert, Oriented, Cran Nerves II-XII Intact, moves all extremities equally, sensory intact to LT Psychiatric: Yes: WNL, Alert, Oriented CBCD WBC 8.5 K/mm3 (4.0-10.0) 04/01/19 05:48 RBC 3.49 M/mm3 (3.60-5.2) L 04/01/19 05:48 Hgb 11.2 GM/dL (10.7-15.3) 04/01/19 05:48 Hct 32.4 % (32.4-45.2) D 04/01/19 05:48 MCV 92.9 fl (80-96) 04/01/19 05:48 MCHC 34.7 g/dl (32.0-36.0) 04/01/19 05:48 RDW 15.6 % (11.6-15.6) 04/01/19 05:48 Plt Count 134 K/MM3 (134-434) 04/01/19 05:48 MPV 8.4 fl (7.5-11.1) 04/01/19 05:48 CMP Sodium 143 mmol/L (136-145) 04/01/19 05:48 Potassium 3.4 mmol/L (3.5-5.1) L 04/01/19 05:48 Chloride 110 mmol/L (98-107) H 04/01/19 05:48 Carbon Dioxide 25 mmol/L (21-32) 04/01/19 05:48 Anion Gap 8 MMOL/L (8-16) 04/01/19 05:48 BUN 29.4 mg/dL (7-18) H 04/01/19 05:48 Creatinine 0.8 mg/dL (0.55-1.3) 04/01/19 05:48 Random Glucose 88 mg/dL (74-106) 04/01/19 05:48 Calcium 8.3 mg/dL (8.5-10.1) L 04/01/19 05:48 Total Bilirubin 1.1 mg/dL (0.2-1) H 04/01/19 05:48 AST 51 U/L (15-37) H 04/01/19 05:48 ALT 25 U/L (13-61) 04/01/19 05:48 Alkaline Phosphatase 80 U/L (45-117) 04/01/19 05:48 Total Protein 5.2 g/dl (6.4-8.2) L 04/01/19 05:48 Albumin 2.8 g/dl (3.4-5.0) L 04/01/19 05:48 CARDIAC ENZYMES Creatine Kinase 599 U/L (26-192) H 04/01/19 05:48 Troponin I 0.02 ng/ml (0.00-0.05) 04/01/19 05:48 ASSESSMENT/PLAN 83YOF with a significant past medical history of syncopal episodes who presented to the emergency department via EMS s/p possible syncope. Patient reported to the ED yesterday night, after her food delivery service provider allegedly found her down on the ground. Patient does not recall any recent falls and is unaware why she is currently in the ED. She noted that she is currently asymptomatic with no complaints here. She takes no home meds, has not tried any new meds/supplements/herbs. She has not been recently ill, had sick contacts, or travel history. She denies dysuria, hematuria, diarrhea. Daughter Viridiana at bedside. Viridiana was not present for incident as pt lives alone but returned to lock home after [place] police/EMS left front door closed. Of note , daughter and pt corroborate that pt had urinary incontinence near sofa and was wiping floor with paper towels. Possible that food delivery department supervisor witnessed this. Pt normally walks without assistance at home and with a cane when outdoors. Head CT, no acute pathology. Cervical Spine CT, anterolisthesis of C3 on C4, C7 on T1, miltilevel disc narrowing, no evidence of acute fracture. Seen in manager cath lab area and neurologically stable. Will not add medication as she is without symptoms. Can continue medical optimization, cardiac work up. Hydration recommended, physical therapy as tolerated, assistive device as needed (cane). Does not require MRI brain at this time.
[2019-04-01 13:05] LABS: EPI CELLS 4.7 /HPF (0-5/HPF); HYALINE CASTS 10 /lpf (0-8); URINE APPEARANCE CLOUDY; URINE BACTERIA 35.1 /hpf (NEGATIVE); URINE BILIRUBIN NEGATIVE (NEGATIVE); URINE COLOR YELLOW; URINE GLUCOSE (UA) NEGATIVE (NEGATIVE); URINE KETONE TRACE (NEGATIVE); URINE LEUK ESTERASE TRACE (NEGATIVE); URINE NITRITE NEGATIVE (NEGATIVE); URINE PROTEIN TRACE (NEGATIVE); URINE RBC 2 /hpf (0-4); URINE UROBILINOGEN 0.2 mg/dL (0.2-1.0); URINE WBC 10 /hpf (0-5)
--- NOTE | 2019-04-01 16:26 | PN ---
Progress Note (short form) - Note Progress Note: Chief Complaint: Events noted, notes reviewed, evaluation of an unwitnessed fall at home unclear if associated syncope, patient denies any chest discomfort or dyspnea, no trauma reported History of Present Illness: Seen and examined in the ER as telemetry hold. Full consult dictated Echocardiography dated February 04, 2017 revealed normal LV size and function, mild MR and TR, mild and moderate AI, moderate pulmonary HTN RVSP 40-50 mmHg Medications: Current Medications Heparin Sodium (Porcine) (Heparin -) 5,000 unit SQ BID MADIHA Last Admin: 04/01/19 10:18 Dose: 5,000 unit Review of Systems Cardiovascular: As noted above Respiratory: denies: Cough or Sputum Production Gastrointestinal: denies: Nausea, Vomiting, Diarrhea, Constipation or Abdominal Discomfort Musculoskeletal: No symptoms reported Genitourinary: No symptoms reported Vital Signs: Last Vital Signs Temp Pulse Resp BP Pulse Ox 98.7 F 90 16 123/66 96 04/01/19 06:00 04/01/19 13:21 04/01/19 13:21 04/01/19 13:21 04/01/19 13:21 Intake & Output 03/29/19 03/30/19 03/31/19 04/01/19 23:59 23:59 23:59 23:59 Intake Total 0 Balance 0 Weight 110 lb Constitutional: No Distress, Calm Neck: Supple Negative JVD Respiratory: Clear to A&P Bilaterally Cardiovascular: S1 S2 Regular Rate and Rhythm Gastrointestinal: Soft Benign Normal Bowel Sounds Ext: No Edema Labs: Troponin, BNP 04/01/19 05:48 Troponin I 0.02 B-Natriuretic Peptide 1508.7 H CBC, BMP 04/01/19 05:48 04/01/19 05:48 Hepatic Panel Total Bilirubin 1.1 mg/dL (0.2-1) H 04/01/19 05:48 AST 51 U/L (15-37) H 04/01/19 05:48 ALT 25 U/L (13-61) 04/01/19 05:48 Alkaline Phosphatase 80 U/L (45-117) 04/01/19 05:48 Albumin 2.8 g/dl (3.4-5.0) L 04/01/19 05:48 Assessment/Plan ASSESSMENT: 1. Coronary artery disease/coronary artery calcification visual calcification on CT scan of the chest angina pectoris 2. Diastolic left ventricular dysfunction with elevated BNP level no clinical evidence of congestive heart failure 3. Unwitnessed fall, unclear if associated syncope no reported trauma 4. History of near syncope suspected hypovolemia, likelihood of recurrence is high considering the above-noted pre-renal azotemia 5. History of chest pain syndrome 6. Aortic regurgitation 7. Moderate degree of pulmonary HTN 8. CKD with evidence of prerenal azotemia 9. Hypokalemia PLAN: 1. If patient is hemodynamically stable and asymptomatic may be discharged home for additional evaluation on outpatient basis including 2. Follow-up echocardiography study for evaluation of left ventricular systolic function and the above-noted valvular pathologies 3. Extended ambulatory monitor for evaluation of possible cameron or tachy arrhythmia as a potential culprit for the above-noted presentation, although unclear if syncope was associated with the fall $. Correction of prerenal azotemia and the above-noted hypokalemia Yony Weems MD
--- NOTE | 2019-04-01 17:26 | CONS ---
DATE OF CONSULTATION: 04/01/2019 REQUESTING PHYSICIAN: Sybil Lujan M.D. CHIEF COMPLAINT: Fall. Questionable syncope. Cardiovascular evaluation. HISTORY OF PRESENT ILLNESS: Patient known to our service from prior admissions. History was predominantly obtained from the chart, some from the patient. No family members available. An 83-year-old female with known history of coronary artery disease, coronary artery calcification on CT scan of the chest dated July 26, 2016, image review , diastolic left ventricular dysfunction with clinical class 0 [place] Heart Association classification left ventricular failure, hypertension (currently on no medical therapy), aortic valve regurgitation, pulmonary hypertension (mild in severity), pulmonary nodules, who was noted by a home food delivery room service supervisor to be on the ground. It is unclear if she had tripped and fallen or there was associated syncope. The patient apparently did not report any trauma. The patient does not have a recollection of the above noted event. The patient currently is resting comfortably, denies any chest discomfort. The patient denies any dyspnea, orthopnea, paroxysmal nocturnal dyspnea or peripheral edema. The patient denies any palpitations, dizziness, lightheadedness. The patient denies any fatigue or tiredness. As noted above, the patient does not have a recollection of the above noted event. The patient has had a prior hospitalization with questionable near syncopal episode. PAST MEDICAL HISTORY: Coronary artery disease/coronary artery calcification, visual calcification on CT scan of the chest; angina pectoris; diastolic left ventricular dysfunction with clinical class 0 [place] [employer] classification left ventricular failure; hypertension/hypertensive cardiovascular disease, currently on no medical therapy; chest pain syndrome; aortic valve regurgitation; pulmonary hypertension, mild to moderate in severity; pulmonary nodules; history of abdominal wall hernia repair; history of an orthopedic procedure. SOCIAL HISTORY: The patient resides at home. Unclear if she was a smoker. FAMILY HISTORY: No family history of premature coronary artery disease. ALLERGIES: None reported. MEDICATIONS: Medical therapy at home - none reported. Currently the patient is on subcutaneous heparin. REVIEW OF SYSTEMS: Head and Neck: Denies headache, photophobia, blurring of vision. Respiratory: No cough or sputum production. Cardiovascular: As noted above. Gastrointestinal: Denies nausea, vomiting, diarrhea, abdominal discomfort. Genitourinary: No symptoms reported. PHYSICAL EXAMINATION: Vital signs: Blood pressure 123/66 mmHg. Pulse rate is 93 beats per minute. Head and Neck: Pupils equally reactive to light and accommodation. Extraocular muscles are intact. Anicteric sclerae. Negative JVD. No bruit appreciated. Chest: Clear to auscultation and percussion. Cardiovascular: S1 and S2 regular. A grade 1/6 systolic ejection murmur. No clicks or gallops. Abdomen: Soft, benign. Normoactive bowel sounds. Extremities: Negative edema. Distal pulses 1+. No calf tenderness. DIAGNOSTIC STUDIES: Electrocardiogram revealed sinus rhythm, with increased voltage. Imaging study reports were noted. CBC revealed white cell count 8.5, hemoglobin 11.2, platelet count 134. Basic metabolic profile revealed sodium 143, potassium 3.4, BUN 29.4, creatinine 0.8, estimated GFR 67.23, glucose 88, AST 51. CPK initially 1359, repeat 599. Troponin 0.02. BNP 1508. ASSESSMENT: 1. Coronary artery disease/coronary artery calcification, visual calcification on CT scan of the chest, with angina pectoris. 2. Diastolic left ventricular dysfunction with clinical class 0 [place] [employer] classification left ventricular failure. 3. Unwitnessed fall, unclear if associated syncope. No reported trauma. 4. History of near syncope, suspected hypovolemia, likely of recurrence is high considering the above noted prerenal azotemia. 5. History of chest pain syndrome. 6. Aortic regurgitation. 7. Pulmonary hypertension, mild to moderate in severity on prior echocardiography study. 8. Chronic kidney disease with evidence of prerenal azotemia. 9. Hypokalemia. RECOMMENDATIONS: 1. If the patient remains hemodynamically stable and asymptomatic, she may be discharged home for additional evaluation on an outpatient basis, includin. Follow up echocardiography for evaluation of left ventricular systolic function and the above noted valvular pathology. 3. Extended ambulatory monitor for evaluation of possible cameron- or tachyarrhythmia as a potential culprit for the above noted presentation, although it is unclear if syncope was associated with the above noted fall. 4. Correction of prerenal azotemia and the above noted hypokalemia. Thank you for the kind referral. HALLIE ROTH M.D. [facility]AM/[id number]
[2019-04-01] MEDS ORDERED: POTASSIUM CHLORIDE TABS 20 MEQ TABLET.ER (FP) PO ONE (18:40)
[2019-04-01] MEDS ORDERED: cefTRIAXone SODIUM 1 GM VIAL ONE (21:48)
[2019-04-01] MEDS ORDERED: DEXTROSE 5%-WATER - 50 ML IVPB ONE (21:49)
[2019-04-01] MEDS: CEFTRIAXONE 1 GM in DEXTROSE 5%-WATER - 50 ML IVPB SCH (21:53)
[2019-04-02 07:47] LABS: BASO % 0.5 % (0-2.0); EOS % 0.5 % (0-4.5); HEMATOCRIT 31.2 % (32.4-45.2); HEMOGLOBIN 10.7 GM/dL (10.7-15.3); LYMPH % 9.5 % (8-40); MCH 32.1 pg (25.7-33.7); MCHC 34.3 g/dl (32.0-36.0); MEAN CELL VOLUME 93.4 fl (80-96); MEAN PLT VOLUME 8.6 fl (7.5-11.1); MONO % 11.7 % (3.8-10.2); NEUT % 77.8 % (42.8-82.8); PLATELET COUNT 128 K/MM3 (134-434); RBC 3.34 M/mm3 (3.60-5.2); RDW 15.2 % (11.6-15.6); WHITE BLOOD COUNT 7.3 K/mm3 (4.0-10.0)
--- NOTE | 2019-04-02 08:05 | PN ---
Progress Note (short form) - Note Progress Note: Chief Complaint: Events noted, notes reviewed, resting in bed, awake and alert, denies any chest discomfort or dyspnea, no arrhythmia noted- initial evaluation was for an unwitnessed fall at home unclear if associated syncope, no trauma reported History of Present Illness: Seen and examined on telemetry. Events noted, notes reviewed, resting in bed, awake and alert, denies any chest discomfort or dyspnea, no arrhythmia noted- initial evaluation was for an unwitnessed fall at home unclear if associated syncope, no trauma reported Echocardiography dated February 04, 2017 revealed normal LV size and function, mild MR and TR, mild and moderate AI, moderate pulmonary HTN RVSP 40-50 mmHg Medications: Current Medications Heparin Sodium (Porcine) (Heparin -) 5,000 unit SQ BID [facility] Last Admin: 04/01/19 21:53 Dose: 5,000 unit Ceftriaxone Sodium 1 gm/ (Dextrose) 50 mls @ 100 mls/hr IVPB DAILY [facility] Last Admin: 04/01/19 21:53 Dose: 100 mls/hr Review of Systems Cardiovascular: As noted above Respiratory: denies: Cough or Sputum Production Gastrointestinal: denies: Nausea, Vomiting, Diarrhea, Constipation or Abdominal Discomfort Musculoskeletal: No symptoms reported Genitourinary: No symptoms reported Vital Signs: Last Vital Signs Temp Pulse Resp BP Pulse Ox 98.4 F 72 21 H 119/66 98 04/02/19 03:46 04/02/19 05:21 04/02/19 05:21 04/02/19 05:21 04/01/19 20:11 Intake & Output 03/30/19 03/31/19 04/01/19 04/02/19 23:59 23:59 23:59 23:59 Intake Total 0 50 Balance 0 50 Weight 110 lb 109 lb 12.643 oz Constitutional: No Distress, Calm Neck: Supple Negative JVD Respiratory: Clear to A&P Bilaterally Cardiovascular: S1 S2 Regular Rate and Rhythm Gastrointestinal: Soft Benign Normal Bowel Sounds Ext: No Edema Labs: BMP pending from this AM CBC, BMP 04/02/19 07:00 Assessment/Plan ASSESSMENT: 1. Coronary artery disease/coronary artery calcification visual calcification on CT scan of the chest angina pectoris 2. Diastolic left ventricular dysfunction with elevated BNP level no clinical evidence of congestive heart failure 3. Unwitnessed fall, unclear if associated syncope no reported trauma 4. History of near syncope suspected hypovolemia, likelihood of recurrence is high considering noted pre-renal azotemia on admission blood test 5. History of chest pain syndrome 6. Aortic regurgitation 7. Moderate degree of pulmonary HTN 8. CKD with evidence of prerenal azotemia 9. UTI 10. Hypokalemia PLAN: 1. As outlined in my initial consult, from the cardiovascular point of view patient may be discharged home for additional evaluation on outpatient basis including 2. Follow-up echocardiography study for evaluation of left ventricular systolic function and the above-noted valvular pathologies 3. Extended ambulatory monitor for evaluation of possible cameron or tachy arrhythmia as a potential culprit for the above-noted presentation, although unclear if syncope was associated with the fall 4. Antibiotics as per the primary team 5. Follow BMP from this AM Yony Weems MD
[2019-04-02 08:14] LABS: ALBUMIN 2.4 g/dl (3.4-5.0); BILIRUBIN,TOTAL 1.2 mg/dL (0.2-1); BLOOD UREA NITROGEN 25.5 mg/dL (7-18); CALCIUM 8.1 mg/dL (8.5-10.1); CREATININE 0.8 mg/dL (0.55-1.3); POTASSIUM 3.6 mmol/L (3.5-5.1); TOT PROT 4.9 g/dl (6.4-8.2)
[2019-04-02] MEDS ORDERED: cefTRIAXone SODIUM 1 GM VIAL ONE (08:52)
[2019-04-02] MEDS ORDERED: DEXTROSE 5%-WATER - 50 ML IVPB ONE (08:53)
[2019-04-02] MEDS: HEPARIN NA (PORCINE) 5,000 UNITS/ML 1ML VIAL SQ SCH ×2 (09:30→21:25)
--- NOTE | 2019-04-02 09:34 | PN ---
Progress Note, Physician Chief Complaint: awake alert more oriented today afebrile consults appreciated - Current Medication List Current Medications: Active Medications Heparin Sodium (Porcine) (Heparin -) 5,000 unit SQ BID [facility] Last Admin: 04/01/19 21:53 Dose: 5,000 unit Ceftriaxone Sodium 1 gm/ (Dextrose) 50 mls @ 100 mls/hr IVPB DAILY [facility] Last Admin: 04/01/19 21:53 Dose: 100 mls/hr - Objective Vital Signs: Vital Signs Temperature 98.2 F 04/02/19 08:20 Pulse Rate 82 04/02/19 08:20 Respiratory Rate 20 04/02/19 08:20 Blood Pressure 121/67 04/02/19 08:20 O2 Sat by Pulse Oximetry (%) 95 04/02/19 08:22 Constitutional: Yes: No Distress, Calm Eyes: Yes: Conjunctiva Clear HENT: Yes: Atraumatic Neck: Yes: Supple Cardiovascular: Yes: Regular Rate and Rhythm Respiratory: Yes: CTA Bilaterally Gastrointestinal: Yes: Soft. No: Tenderness Genitourinary: No: CVA Tenderness - Left, CVA Tenderness - Right Musculoskeletal: No: Joint Stiffness, Joint Swelling Extremities: No: Calf Tenderness, Cold, Cool, Cyanosis Edema: No Integumentary: Yes: Venous Stasis Changes Neurological: Yes: Alert ...Motor Strength: WNL Psychiatric: Yes: Alert. No: Agitated, Suicidal Ideation Labs: CBC, BMP 04/02/19 07:00 04/02/19 07:00 - ....Imaging Other: Report Reviewed Assessment/Plan 83YOF with a significant past medical history of syncopal episodes admitted s/p possible syncope, fall, confusion; UA 10 WBC r/o UTI UCx sent telemetry IV ATB cardio, neurology eval pelvic, hips xrays CXR no fractures DEIDRE DVT decubs falls aspiration pfx d/w pt and staff d/w pt's daughter Viridiana / phone; prognosis guarded. Viridiana expressed wish for SNF at [facility] when stable.
[2019-04-02] MEDS: CEFTRIAXONE 1 GM in DEXTROSE 5%-WATER - 50 ML IVPB SCH (09:35)
--- NOTE | 2019-04-02 10:41 | PN ---
Progress Note (short form) - Note Progress Note: Neurology HPI: 83YOF with a significant past medical history of syncopal episodes who presented to the emergency department via EMS s/p possible syncope. Patient reported to the ED yesterday night, after her food delivery service provider allegedly found her down on the ground. Patient does not recall any recent falls. She noted that she is currently asymptomatic with no complaints here. She takes no home meds, has not tried any new meds/supplements/herbs. She has not been recently ill, had sick contacts, or travel history. She denies dysuria , hematuria, diarrhea. Daughter Viridiana reported patient lives alone but returned to lock home after [place] police/EMS left front door closed. Of note, daughter and pt corroborate that pt had urinary incontinence near sofa and was wiping floor with paper towels. Possible that food message and delivery service pricer witnessed this. Pt normally walks without assistance at home and with a cane when outdoors. Head CT, no acute pathology. Cervical Spine CT, anterolisthesis of C3 on C4, C7 on T1, miltilevel disc narrowing, no evidence of acute fracture. Patient in good spirits and without significant complaint. 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 Hip/Pelvic xray completed, with no acute pathology, right hip replacement noted. Denies any significant events and receiving antibiotics at this time.. No complaints,, neurologically stable. Active Medications Heparin Sodium (Porcine) (Heparin -) 5,000 unit SQ BID [facility] Last Admin: 04/02/19 09:30 Dose: 5,000 unit Ceftriaxone Sodium 1 gm/ (Dextrose) 50 mls @ 100 mls/hr IVPB DAILY [facility] Last Admin: 04/02/19 09:35 Dose: 100 mls/hr Physical Examination Vital Signs Period Temp Pulse Resp BP Sys/Morel Pulse Ox Last 24 Hr 98.2 F-98.6 F 72-106 16-22 119-152/65-103 95-98 Constitutional: Yes: Well Nourished, No Distress, Calm Eyes: Yes: WNL, Conjunctiva Clear, EOM Intact, PERRL HENT: Yes: WNL, Atraumatic, Normocephalic Neck: Yes: Supple, Trachea Midline, Tenderness (right anterior aspect- TTP) Cardiovascular: Yes: WNL, Regular Rate and Rhythm, S1, S2 Respiratory: Yes: WNL, Regular, CTA Bilaterally Musculoskeletal: Yes: WNL Extremities: Yes: WNL Edema: No Peripheral Pulses WNL: Yes Integumentary: Yes: WNL Neurological: Yes: WNL, Alert, Oriented, Cran Nerves II-XII Intact, moves all extremities equally, sensory intact to LT Psychiatric: Yes: WNL, Alert, Oriented CBCD WBC 7.3 K/mm3 (4.0-10.0) 04/02/19 07:00 RBC 3.34 M/mm3 (3.60-5.2) L 04/02/19 07:00 Hgb 10.7 GM/dL (10.7-15.3) 04/02/19 07:00 Hct 31.2 % (32.4-45.2) L 04/02/19 07:00 MCV 93.4 fl (80-96) 04/02/19 07:00 MCHC 34.3 g/dl (32.0-36.0) 04/02/19 07:00 RDW 15.2 % (11.6-15.6) 04/02/19 07:00 Plt Count 128 K/MM3 (134-434) L 04/02/19 07:00 MPV 8.6 fl (7.5-11.1) 04/02/19 07:00 CMP Sodium 143 mmol/L (136-145) 04/02/19 07:00 Potassium 3.6 mmol/L (3.5-5.1) 04/02/19 07:00 Chloride 110 mmol/L (98-107) H 04/02/19 07:00 Carbon Dioxide 28 mmol/L (21-32) 04/02/19 07:00 Anion Gap 5 MMOL/L (8-16) L 04/02/19 07:00 BUN 25.5 mg/dL (7-18) H 04/02/19 07:00 Creatinine 0.8 mg/dL (0.55-1.3) 04/02/19 07:00 Random Glucose 108 mg/dL (74-106) H 04/02/19 07:00 Calcium 8.1 mg/dL (8.5-10.1) L 04/02/19 07:00 Total Bilirubin 1.2 mg/dL (0.2-1) H 04/02/19 07:00 AST 29 U/L (15-37) 04/02/19 07:00 ALT 21 U/L (13-61) 04/02/19 07:00 Alkaline Phosphatase 71 U/L (45-117) 04/02/19 07:00 Total Protein 4.9 g/dl (6.4-8.2) L 04/02/19 07:00 Albumin 2.4 g/dl (3.4-5.0) L 04/02/19 07:00 CARDIAC ENZYMES Creatine Kinase 174 U/L (26-192) 04/02/19 07:00 Troponin I < 0.02 ng/ml (0.00-0.05) 04/02/19 07:00 ASSESSMENT/PLAN 83YOF with a significant past medical history of syncopal episodes who presented to the emergency department via EMS s/p possible syncope. Patient reported to the ED yesterday night, after her food delivery service provider allegedly found her down on the ground. Patient does not recall any recent falls and is unaware why she is currently in the ED. She noted that she is currently asymptomatic with no complaints here. She takes no home meds, has not tried any new meds/supplements/herbs. She has not been recently ill, had sick contacts, or travel history. She denies dysuria, hematuria, diarrhea. Daughter Viridiana at bedside. Viridiana was not present for incident as pt lives alone but returned to lock home after [place] police/EMS left front door closed. Of note , daughter and pt corroborate that pt had urinary incontinence near sofa and was wiping floor with paper towels. Possible that food message and delivery service pricer witnessed this. Pt normally walks without assistance at home and with a cane when outdoors. Head CT, no acute pathology. Cervical Spine CT, anterolisthesis of C3 on C4, C7 on T1, miltilevel disc narrowing, no evidence of acute fracture. 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 Hip/Pelvic xray completed, with no acute pathology, right hip replacement noted. Will not add medication as she is without symptoms. Can continue medical optimization, cardiac work up. Hydration recommended, physical therapy as tolerated, assistive device as needed (cane). Does not require MRI brain at this time. No complaints,, neurologically stable.
[2019-04-02 13:03] VITALS: BMI 21.2
--- NOTE | 2019-04-03 06:44 | PN ---
Progress Note (short form) - Note Progress Note: Chief Complaint: Events noted, notes reviewed, resting in bed, awake and alert, denies any chest discomfort or dyspnea, no arrhythmia noted- as outlined in the prior notes initial evaluation was for an unwitnessed fall at home unclear if associated syncope, no trauma reported History of Present Illness: Seen and examined on telemetry. Events noted, notes reviewed, resting in bed, awake and alert, denies any chest discomfort or dyspnea, no arrhythmia noted- as outlined in the prior notes initial evaluation was for an unwitnessed fall at home unclear if associated syncope, no trauma reported Echocardiography dated February 04, 2017 revealed normal LV size and function, mild MR and TR, mild and moderate AI, moderate pulmonary HTN RVSP 40-50 mmHg Medications: Current Medications Heparin Sodium (Porcine) (Heparin -) 5,000 unit SQ BID [facility] Last Admin: 04/02/19 21:25 Dose: 5,000 unit Ceftriaxone Sodium 1 gm/ (Dextrose) 50 mls @ 100 mls/hr IVPB DAILY [facility] Last Admin: 04/02/19 09:35 Dose: 100 mls/hr Review of Systems Cardiovascular: As noted above Respiratory: denies: Cough or Sputum Production Gastrointestinal: denies: Nausea, Vomiting, Diarrhea, Constipation or Abdominal Discomfort Musculoskeletal: No symptoms reported Genitourinary: No symptoms reported Vital Signs: Last Vital Signs Temp Pulse Resp BP Pulse Ox 98.7 F 70 20 133/65 96 04/03/19 04:00 04/03/19 04:00 04/03/19 04:00 04/03/19 04:00 04/02/19 21:00 Intake & Output 03/31/19 04/01/19 04/02/19 04/03/19 23:59 23:59 23:59 23:59 Intake Total 0 560 310 Balance 0 560 310 Weight 110 lb 109 lb 12.643 oz 109 lb Constitutional: No Distress, Calm Neck: Supple Negative JVD Respiratory: Clear to A&P Bilaterally Cardiovascular: S1 S2 Regular Rate and Rhythm Gastrointestinal: Soft Benign Normal Bowel Sounds Ext: No Edema Labs: CBC, BMP 04/02/19 07:00 04/02/19 07:00 Hepatic Panel Total Bilirubin 1.2 mg/dL (0.2-1) H 04/02/19 07:00 AST 29 U/L (15-37) 04/02/19 07:00 ALT 21 U/L (13-61) 04/02/19 07:00 Alkaline Phosphatase 71 U/L (45-117) 04/02/19 07:00 Albumin 2.4 g/dl (3.4-5.0) L 04/02/19 07:00 Assessment/Plan ASSESSMENT: 1. Coronary artery disease/coronary artery calcification visual calcification on CT scan of the chest angina pectoris 2. Diastolic left ventricular dysfunction with elevated BNP level no clinical evidence of congestive heart failure 3. Unwitnessed fall, unclear if associated syncope no reported trauma 4. History of near syncope suspected hypovolemia, likelihood of recurrence is high considering noted pre-renal azotemia on admission blood test 5. History of chest pain syndrome 6. Aortic regurgitation 7. Moderate degree of pulmonary HTN 8. CKD with evidence of prerenal azotemia 9. UTI 10. Hypokalemia, resolved PLAN: 1. As outlined in my initial consult, from the cardiovascular point of view patient may be discharged home for additional evaluation on outpatient basis including 2. Follow-up echocardiography study for evaluation of left ventricular systolic function and the above-noted valvular pathologies 3. Extended ambulatory monitor for evaluation of possible cameron or tachy arrhythmia as a potential culprit for the above-noted presentation, although unclear if syncope was associated with the fall 4. Antibiotics as per the primary team Yony Weems MD
[2019-04-03] MEDS ORDERED: cefTRIAXone SODIUM 1 GM VIAL ONE (08:59)
[2019-04-03] MEDS ORDERED: DEXTROSE 5%-WATER - 50 ML IVPB ONE (09:00)
[2019-04-03] MEDS: HEPARIN NA (PORCINE) 5,000 UNITS/ML 1ML VIAL SQ SCH ×2 (10:12→22:37)
[2019-04-03] MEDS: CEFTRIAXONE 1 GM in DEXTROSE 5%-WATER - 50 ML IVPB SCH (10:12)
--- NOTE | 2019-04-03 11:11 | PN ---
Progress Note (short form) - Note Progress Note: Neurology HPI: 83YOF with a significant past medical history of syncopal episodes who presented to the emergency department via EMS s/p possible syncope. Patient reported to the ED yesterday night, after her food delivery service provider allegedly found her down on the ground. Patient does not recall any recent falls. She noted that she is currently asymptomatic with no complaints here. She takes no home meds, has not tried any new meds/supplements/herbs. She has not been recently ill, had sick contacts, or travel history. She denies dysuria , hematuria, diarrhea. Daughter Viridiana reported patient lives alone but returned to lock home after [place] police/EMS left front door closed. Of note, daughter and pt corroborate that pt had urinary incontinence near sofa and was wiping floor with paper towels. Possible that food local delivery driver witnessed this. Pt normally walks without assistance at home and with a cane when outdoors. Head CT, no acute pathology. Cervical Spine CT, anterolisthesis of C3 on C4, C7 on T1, miltilevel disc narrowing, no evidence of acute fracture. Patient in good spirits and without significant complaint. 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 Hip/Pelvic xray completed, with no acute pathology, right hip replacement noted. Denies any significant events and receiving antibiotics at this time. Remains on ceftriaxone, mental status appears to be at baseline Active Medications Heparin Sodium (Porcine) (Heparin -) 5,000 unit SQ BID [facility] Last Admin: 04/03/19 10:12 Dose: 5,000 unit Ceftriaxone Sodium 1 gm/ (Dextrose) 50 mls @ 100 mls/hr IVPB DAILY [facility] Last Admin: 04/03/19 10:12 Dose: 100 mls/hr Physical Examination Vital Signs Period Temp Pulse Resp BP Sys/Morel Pulse Ox Last 24 Hr 98.0 F-98.7 F 70-105 18-24 110-144/61-77 96 Constitutional: Yes: Well Nourished, No Distress, Calm Eyes: Yes: WNL, Conjunctiva Clear, EOM Intact, PERRL HENT: Yes: WNL, Atraumatic, Normocephalic Neck: Yes: Supple, Trachea Midline, Tenderness (right anterior aspect- TTP) Cardiovascular: Yes: WNL, Regular Rate and Rhythm, S1, S2 Respiratory: Yes: WNL, Regular, CTA Bilaterally Musculoskeletal: Yes: WNL Extremities: Yes: WNL Edema: No Peripheral Pulses WNL: Yes Integumentary: Yes: WNL Neurological: Yes: WNL, Alert, Oriented, Cran Nerves II-XII Intact, moves all extremities equally, sensory intact to LT Psychiatric: Yes: WNL, Alert, Oriented CBCD WBC 7.3 K/mm3 (4.0-10.0) 04/02/19 07:00 RBC 3.34 M/mm3 (3.60-5.2) L 04/02/19 07:00 Hgb 10.7 GM/dL (10.7-15.3) 04/02/19 07:00 Hct 31.2 % (32.4-45.2) L 04/02/19 07:00 MCV 93.4 fl (80-96) 04/02/19 07:00 MCHC 34.3 g/dl (32.0-36.0) 04/02/19 07:00 RDW 15.2 % (11.6-15.6) 04/02/19 07:00 Plt Count 128 K/MM3 (134-434) L 04/02/19 07:00 MPV 8.6 fl (7.5-11.1) 04/02/19 07:00 CMP Sodium 143 mmol/L (136-145) 04/02/19 07:00 Potassium 3.6 mmol/L (3.5-5.1) 04/02/19 07:00 Chloride 110 mmol/L (98-107) H 04/02/19 07:00 Carbon Dioxide 28 mmol/L (21-32) 04/02/19 07:00 Anion Gap 5 MMOL/L (8-16) L 04/02/19 07:00 BUN 25.5 mg/dL (7-18) H 04/02/19 07:00 Creatinine 0.8 mg/dL (0.55-1.3) 04/02/19 07:00 Random Glucose 108 mg/dL (74-106) H 04/02/19 07:00 Calcium 8.1 mg/dL (8.5-10.1) L 04/02/19 07:00 Total Bilirubin 1.2 mg/dL (0.2-1) H 04/02/19 07:00 AST 29 U/L (15-37) 04/02/19 07:00 ALT 21 U/L (13-61) 04/02/19 07:00 Alkaline Phosphatase 71 U/L (45-117) 04/02/19 07:00 Total Protein 4.9 g/dl (6.4-8.2) L 04/02/19 07:00 Albumin 2.4 g/dl (3.4-5.0) L 04/02/19 07:00 CARDIAC ENZYMES Creatine Kinase 174 U/L (26-192) 04/02/19 07:00 Troponin I < 0.02 ng/ml (0.00-0.05) 04/02/19 07:00 ASSESSMENT/PLAN 83YOF with a significant past medical history of syncopal episodes who presented to the emergency department via EMS s/p possible syncope. Patient reported to the ED yesterday night, after her food delivery service provider allegedly found her down on the ground. Patient does not recall any recent falls and is unaware why she is currently in the ED. She noted that she is currently asymptomatic with no complaints here. She takes no home meds, has not tried any new meds/supplements/herbs. She has not been recently ill, had sick contacts, or travel history. She denies dysuria, hematuria, diarrhea. Daughter Viridiana at bedside. Viridiana was not present for incident as pt lives alone but returned to lock home after [place] police/EMS left front door closed. Of note , daughter and pt corroborate that pt had urinary incontinence near sofa and was wiping floor with paper towels. Possible that food local delivery driver witnessed this. Pt normally walks without assistance at home and with a cane when outdoors. Head CT, no acute pathology. Cervical Spine CT, anterolisthesis of C3 on C4, C7 on T1, miltilevel disc narrowing, no evidence of acute fracture. 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 Hip/Pelvic xray completed, with no acute pathology, right hip replacement noted. Will not add medication as she is without symptoms. Can continue medical optimization, cardiac work up. Hydration recommended, physical therapy as tolerated, assistive device as needed (cane). Does not require MRI brain at this time. Remains on ceftriaxone, mental status appears to be at baseline
[2019-04-03] MEDS ORDERED: ACETAMINOPHEN 325 MG TABLET (FP) PO PRN (13:02)
--- NOTE | 2019-04-03 13:08 | PN ---
Progress Note, Physician History of Present Illness: Pt w/o fever, chills, SOB, CP, palpitations, abd pain. - Current Medication List Current Medications: Active Medications Acetaminophen (Tylenol -) 650 mg PO Q6H PRN PRN Reason: PAIN Heparin Sodium (Porcine) (Heparin -) 5,000 unit SQ BID [facility] Last Admin: 04/03/19 10:12 Dose: 5,000 unit Ceftriaxone Sodium 1 gm/ (Dextrose) 50 mls @ 100 mls/hr IVPB DAILY [facility] Last Admin: 04/03/19 10:12 Dose: 100 mls/hr - Objective Vital Signs: Vital Signs Temperature 98.9 F 04/03/19 08:00 Pulse Rate 75 04/03/19 08:00 Respiratory Rate 24 H 04/03/19 09:00 Blood Pressure 120/66 04/03/19 08:00 O2 Sat by Pulse Oximetry (%) 96 04/03/19 09:00 Constitutional: Yes: No Distress, Calm Cardiovascular: Yes: Regular Rate and Rhythm, S1, S2 Respiratory: Yes: Regular, CTA Bilaterally. No: Rales Gastrointestinal: Yes: Normal Bowel Sounds, Soft. No: Tenderness Edema: No Neurological: Yes: Alert, Oriented, Other (symmetric motor and sensory examination) Labs: CBC, BMP 04/02/19 07:00 04/02/19 07:00 Problem List - Problems (1) Syncope Code(s): R55 - SYNCOPE AND COLLAPSE Qualifiers: Syncope type: unspecified Qualified Code(s): R55 - Syncope and collapse (2) Hypokalemia Assessment/Plan: corrected Code(s): E87.6 - HYPOKALEMIA (3) UTI (urinary tract infection) Assessment/Plan: on Ceftriaxone Code(s): N39.0 - URINARY TRACT INFECTION, SITE NOT SPECIFIED Qualifiers: Urinary tract infection type: site unspecified Hematuria presence: without hematuria Qualified Code(s): N39.0 - Urinary tract infection, site not specified (4) Rhabdomyolysis Assessment/Plan: improving Code(s): M62.82 - RHABDOMYOLYSIS Qualifiers: Rhabdomyolysis type: non-traumatic Qualified Code(s): M62.82 - Rhabdomyolysis Assessment/Plan Admitted to monitor bed Cardio, Neuro consults and appreciated. Monitor electrolytes. PT AM labs
[2019-04-03] MEDS ORDERED: APIXABAN 2.5 MG TABLET PO ONE (19:30)
[2019-04-03] MEDS ORDERED: METOPROLOL TARTRATE 25 MG TABLET (FP) PO ONE (19:30)
[2019-04-03] MEDS ORDERED: METOPROLOL TARTRATE 25 MG TABLET (FP) PO SCH (22:00)
[2019-04-03] MEDS: APIXABAN 2.5 MG TABLET PO SCH (22:35)
[2019-04-04 06:09] LABS: HEMATOCRIT 30.3 % (32.4-45.2); HEMOGLOBIN 10.2 GM/dL (10.7-15.3); MCH 31.8 pg (25.7-33.7); MCHC 33.9 g/dl (32.0-36.0); MEAN CELL VOLUME 93.8 fl (80-96); MEAN PLT VOLUME 8.6 fl (7.5-11.1); PLATELET COUNT 132 K/MM3 (134-434); RBC 3.23 M/mm3 (3.60-5.2); RDW 15.2 % (11.6-15.6); WHITE BLOOD COUNT 7.7 K/mm3 (4.0-10.0)
[2019-04-04 06:34] LABS: ALBUMIN 1.9 g/dl (3.4-5.0); BILIRUBIN,TOTAL 0.6 mg/dL (0.2-1); BLOOD UREA NITROGEN 25.8 mg/dL (7-18); CALCIUM 7.7 mg/dL (8.5-10.1); CREATININE 0.8 mg/dL (0.55-1.3); POTASSIUM 3.3 mmol/L (3.5-5.1); TOT PROT 4.5 g/dl (6.4-8.2)
--- NOTE | 2019-04-04 06:44 | PN ---
Progress Note (short form) - Note Progress Note: Chief Complaint: Events noted, notes reviewed, resting in bed, awake and alert, denies any chest discomfort or dyspnea, asymptomatic atrial fibrillation noted yesterday- contacted by the nursing staff, rate controlled, therapy initiated with B-Blockers and A/C considering patient's [id number] score of 3 History of Present Illness: Seen and examined on telemetry. Events noted, notes reviewed, resting in bed, awake and alert, denies any chest discomfort or dyspnea, asymptomatic atrial fibrillation noted yesterday- contacted by the nursing staff, rate controlled, therapy initiated with B-Blockers and A/C considering patient's [id number] score of 3 Ideally A/C to be continued indefinitely considering the above noted [id number] score of 3 Echocardiography dated February 04, 2017 revealed normal LV size and function, mild MR and TR, mild and moderate AI, moderate pulmonary HTN RVSP 40-50 mmHg Medications: Current Medications Acetaminophen (Tylenol -) 650 mg PO Q6H PRN PRN Reason: PAIN Last Admin: 04/03/19 22:37 Dose: 650 mg Apixaban (Eliquis -) 2.[address] [facility] Last Admin: 04/03/19 22:35 Dose: Not Given Ceftriaxone Sodium 1 gm/ (Dextrose) 50 mls @ 100 mls/hr IVPB DAILY [facility] Last Admin: 04/03/19 10:12 Dose: 100 mls/hr Metoprolol Tartrate (Lopressor -) [address] [facility] Last Admin: 04/03/19 22:36 Dose: Not Given Review of Systems Cardiovascular: As noted above Respiratory: denies: Cough or Sputum Production Gastrointestinal: denies: Nausea, Vomiting, Diarrhea, Constipation or Abdominal Discomfort Musculoskeletal: No symptoms reported Genitourinary: No symptoms reported Vital Signs: Last Vital Signs Temp Pulse Resp BP Pulse Ox 98.6 F 80 23 H 94/56 L 97 04/04/19 04:00 04/04/19 04:00 04/04/19 04:00 04/04/19 04:00 04/03/19 20:50 Intake & Output 04/01/19 04/02/19 04/03/19 04/04/19 23:59 23:59 23:59 23:59 Intake Total 0 560 730 Balance 0 560 730 Weight 109 lb 12.643 oz 109 lb Constitutional: No Distress, Calm Neck: Supple Negative JVD Respiratory: Clear to A&P Bilaterally Cardiovascular: S1 S2 Irregularly Irregular Gastrointestinal: Soft Benign Normal Bowel Sounds Ext: No Edema Labs: CBC, BMP 04/04/19 05:10 04/04/19 05:10 Hepatic Panel Total Bilirubin 0.6 mg/dL (0.2-1) 04/04/19 05:10 AST 18 U/L (15-37) 04/04/19 05:10 ALT 16 U/L (13-61) 04/04/19 05:10 Alkaline Phosphatase 62 U/L (45-117) 04/04/19 05:10 Albumin 1.9 g/dl (3.4-5.0) L 04/04/19 05:10 Assessment/Plan ASSESSMENT: 1. Paroxysmal atrial fibrillation [id number] score of 3 rate controlled initiated on therapy/B-Blockers and A/C with DOAC's- Eliquis 2. Coronary artery disease/coronary artery calcification visual calcification on CT scan of the chest angina pectoris 3. Diastolic left ventricular dysfunction with elevated BNP level no clinical evidence of congestive heart failure 4. Unwitnessed fall, unclear if associated syncope no reported trauma 5. History of near syncope suspected hypovolemia, likelihood of recurrence is high considering noted pre-renal azotemia on admission blood test 6. History of chest pain syndrome 7. Aortic regurgitation 8. Moderate degree of pulmonary HTN 9. CKD with evidence of prerenal azotemia 10. UTI 11. Hypokalemia, recurrent 12. Anemia PLAN: 1. Continue B-Blockers with caution hemodynamics permitting/Lopressor 2. Add Amiodarone to assist with chemical conversion, initiate at 200 mg twice daily 3. Ideally A/C therapy with DOAC's- Eliquis to be continued indefinitely considering the above noted [id number] score of 3 4. Correction of Hypokalemia 5. Follow-up echocardiography study to be obtained fro evaluation of LV function and valvular pathologies 6. Antibiotics as per the primary team Yony Weems MD
[2019-04-04] MEDS ORDERED: POTASSIUM CHLORIDE ORAL LIQUID 20 MEQ/15 ML PO ONE (06:50)
--- NOTE | 2019-04-04 08:39 | PN ---
Progress Note (short form) - Note Progress Note: Neurology HPI: 83YOF with a significant past medical history of syncopal episodes who presented to the emergency department via EMS s/p possible syncope. Patient reported to the ED yesterday night, after her food delivery service provider allegedly found her down on the ground. Patient does not recall any recent falls. She noted that she is currently asymptomatic with no complaints here. She takes no home meds, has not tried any new meds/supplements/herbs. She has not been recently ill, had sick contacts, or travel history. She denies dysuria , hematuria, diarrhea. Daughter Viridiana reported patient lives alone but returned to lock home after [place] police/EMS left front door closed. Of note, daughter and pt corroborate that pt had urinary incontinence near sofa and was wiping floor with paper towels. Possible that food delivery merchandiser witnessed this. Pt normally walks without assistance at home and with a cane when outdoors. Head CT, no acute pathology. Cervical Spine CT, anterolisthesis of C3 on C4, C7 on T1, miltilevel disc narrowing, no evidence of acute fracture. Patient in good spirits and without significant complaint. 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 Hip/Pelvic xray completed, with no acute pathology, right hip replacement noted. Denies any significant events and receiving antibiotics at this time. Remains on ceftriaxone, mental status appears to be at baseline. Discussed with primary care physician and reportedly overnight patient developed a run of atrial fibrillation and was put on Eliquis. Cardiac arrhythmia may explain her recurrent episodes, defer to gallery assistant regarding anticoagulation. Would advise strict fall precautions. Active Medications Acetaminophen (Tylenol -) 650 mg PO Q6H PRN PRN Reason: PAIN Last Admin: 04/03/19 22:37 Dose: 650 mg Amiodarone HCl (Cordarone -) 200 mg PO BID [facility] Apixaban (Eliquis -) 2.5 mg PO BID [facility] Last Admin: 04/03/19 22:35 Dose: Not Given Ceftriaxone Sodium 1 gm/ (Dextrose) 50 mls @ 100 mls/hr IVPB DAILY [facility] Last Admin: 04/03/19 10:12 Dose: 100 mls/hr Metoprolol Tartrate (Lopressor -) 25 mg PO BID [facility] Physical Examination Vital Signs Period Temp Pulse Resp BP Sys/Morel Pulse Ox Last 24 Hr 97.9 F-98.6 F 73-103 21-81 91-100/56-68 96-98 Constitutional: Yes: Well Nourished, No Distress, Calm Eyes: Yes: WNL, Conjunctiva Clear, EOM Intact, PERRL HENT: Yes: WNL, Atraumatic, Normocephalic Neck: Yes: Supple, Trachea Midline, Tenderness (right anterior aspect- TTP) Cardiovascular: Yes: WNL, Regular Rate and Rhythm, S1, S2 Respiratory: Yes: WNL, Regular, CTA Bilaterally Musculoskeletal: Yes: WNL Extremities: Yes: WNL Edema: No Peripheral Pulses WNL: Yes Integumentary: Yes: WNL Neurological: Yes: WNL, Alert, Oriented, Cran Nerves II-XII Intact, moves all extremities equally, sensory intact to LT Psychiatric: Yes: WNL, Alert, Oriented CBCD WBC 7.7 K/mm3 (4.0-10.0) 04/04/19 05:10 RBC 3.23 M/mm3 (3.60-5.2) L 04/04/19 05:10 Hgb 10.2 GM/dL (10.7-15.3) L 04/04/19 05:10 Hct 30.3 % (32.4-45.2) L 04/04/19 05:10 MCV 93.8 fl (80-96) 04/04/19 05:10 MCHC 33.9 g/dl (32.0-36.0) 04/04/19 05:10 RDW 15.2 % (11.6-15.6) 04/04/19 05:10 Plt Count 132 K/MM3 (134-434) L 04/04/19 05:10 MPV 8.6 fl (7.5-11.1) 04/04/19 05:10 CMP Sodium 142 mmol/L (136-145) 04/04/19 05:10 Potassium 3.3 mmol/L (3.5-5.1) L 04/04/19 05:10 Chloride 106 mmol/L (98-107) 04/04/19 05:10 Carbon Dioxide 30 mmol/L (21-32) 04/04/19 05:10 Anion Gap 6 MMOL/L (8-16) L 04/04/19 05:10 BUN 25.8 mg/dL (7-18) H 04/04/19 05:10 Creatinine 0.8 mg/dL (0.55-1.3) 04/04/19 05:10 Random Glucose 98 mg/dL (74-106) 04/04/19 05:10 Calcium 7.7 mg/dL (8.5-10.1) L 04/04/19 05:10 Total Bilirubin 0.6 mg/dL (0.2-1) 04/04/19 05:10 AST 18 U/L (15-37) 04/04/19 05:10 ALT 16 U/L (13-61) 04/04/19 05:10 Alkaline Phosphatase 62 U/L (45-117) 04/04/19 05:10 Total Protein 4.5 g/dl (6.4-8.2) L 04/04/19 05:10 Albumin 1.9 g/dl (3.4-5.0) L 04/04/19 05:10 CARDIAC ENZYMES Creatine Kinase 174 U/L (26-192) 04/02/19 07:00 Troponin I < 0.02 ng/ml (0.00-0.05) 04/02/19 07:00 ASSESSMENT/PLAN 83YOF with a significant past medical history of syncopal episodes who presented to the emergency department via EMS s/p possible syncope. Patient reported to the ED yesterday night, after her food delivery service provider allegedly found her down on the ground. Patient does not recall any recent falls and is unaware why she is currently in the ED. She noted that she is currently asymptomatic with no complaints here. She takes no home meds, has not tried any new meds/supplements/herbs. She has not been recently ill, had sick contacts, or travel history. She denies dysuria, hematuria, diarrhea. Daughter Viridiana at bedside. Viridiana was not present for incident as pt lives alone but returned to lock home after [place] police/EMS left front door closed. Of note , daughter and pt corroborate that pt had urinary incontinence near sofa and was wiping floor with paper towels. Possible that food delivery merchandiser witnessed this. Pt normally walks without assistance at home and with a cane when outdoors. Head CT, no acute pathology. Cervical Spine CT, anterolisthesis of C3 on C4, C7 on T1, miltilevel disc narrowing, no evidence of acute fracture. 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 Hip/Pelvic xray completed, with no acute pathology, right hip replacement noted. Will not add medication as she is without symptoms. Can continue medical optimization, cardiac work up. Hydration recommended, physical therapy as tolerated, assistive device as needed (cane).Discussed with primary care physician and reportedly overnight patient developed a run of atrial fibrillation and was put on Eliquis. Cardiac arrhythmia may explain her recurrent episodes, defer to gallery assistant regarding anticoagulation. Would advise strict fall precautions. Remains on ceftriaxone, mental status appears to be at baseline
[2019-04-04] MEDS: METOPROLOL TARTRATE 25 MG TABLET (FP) PO SCH ×2 (09:12→21:26)
[2019-04-04] MEDS ORDERED: cefTRIAXone SODIUM 1 GM VIAL ONE (09:13)
[2019-04-04] MEDS ORDERED: DEXTROSE 5%-WATER - 50 ML IVPB ONE (09:14)
--- NOTE | 2019-04-04 09:22 | EKG ---
Test Reason : Blood Pressure : / mmHG Vent. Rate : 114 BPM Atrial Rate : 300 BPM P-R Int : 000 ms QRS Dur : 082 ms QT Int : 312 ms P-R-T Axes : 072 033 035 degrees QTc Int : 430 ms ATRIAL FLUTTER WITH VARIABLE A-V BLOCK ABNORMAL ECG Confirmed by Sal Ochoa MD ([id number]) on 04/04/2019 9:21:54 AM Referred By: DR TAYLOR Confirmed By:Sal Ochoa MD
[2019-04-04] MEDS: AMIODARONE HCL 200 MG TABLET PO SCH ×2 (09:28→21:26)
[2019-04-04] MEDS: CEFTRIAXONE 1 GM in DEXTROSE 5%-WATER - 50 ML IVPB SCH (09:29)
[2019-04-04] MEDS: APIXABAN 2.5 MG TABLET PO SCH ×2 (09:29→21:25)
[2019-04-04] MEDS ORDERED: POTASSIUM CHLORIDE TABS 20 MEQ TABLET.ER (FP) PO ONE (10:01)
--- NOTE | 2019-04-04 10:02 | PN ---
Progress Note, Physician History of Present Illness: Pt w/o fever, chills, cg, SOB, CP, palpitations, abd pain. - Current Medication List Current Medications: Active Medications Acetaminophen (Tylenol -) 650 mg PO Q6H PRN PRN Reason: PAIN Last Admin: 04/03/19 22:37 Dose: 650 mg Amiodarone HCl (Cordarone -) 200 mg PO BID [facility] Last Admin: 04/04/19 09:28 Dose: 200 mg Apixaban (Eliquis -) 2.5 mg PO BID [facility] Last Admin: 04/04/19 09:29 Dose: 2.5 mg Ceftriaxone Sodium 1 gm/ (Dextrose) 50 mls @ 100 mls/hr IVPB DAILY [facility] Last Admin: 04/04/19 09:29 Dose: 100 mls/hr Metoprolol Tartrate (Lopressor -) 25 mg PO BID [facility] Last Admin: 04/04/19 09:12 Dose: Not Given - Objective Vital Signs: Vital Signs Temperature 97.9 F 04/04/19 08:09 Pulse Rate 73 04/04/19 08:09 Respiratory Rate 81 H 04/04/19 08:09 Blood Pressure 91/59 L 04/04/19 08:09 O2 Sat by Pulse Oximetry (%) 98 04/04/19 08:09 Constitutional: Yes: No Distress, Calm Cardiovascular: Yes: Regular Rate and Rhythm, S1, S2 Respiratory: Yes: Regular, Rales, Other (coarse BS) Gastrointestinal: Yes: Normal Bowel Sounds, Soft. No: Tenderness Edema: No Neurological: Yes: Alert, Oriented Labs: CBC, BMP 04/04/19 05:10 04/04/19 05:10 - ....Imaging Chest X-ray: Report Reviewed Problem List - Problems (1) Syncope Code(s): R55 - SYNCOPE AND COLLAPSE Qualifiers: Syncope type: unspecified Qualified Code(s): R55 - Syncope and collapse (2) Hypokalemia Code(s): E87.6 - HYPOKALEMIA (3) UTI (urinary tract infection) Code(s): N39.0 - URINARY TRACT INFECTION, SITE NOT SPECIFIED Qualifiers: Urinary tract infection type: site unspecified Hematuria presence: without hematuria Qualified Code(s): N39.0 - Urinary tract infection, site not specified (4) Rhabdomyolysis Code(s): M62.82 - RHABDOMYOLYSIS Qualifiers: Rhabdomyolysis type: non-traumatic Qualified Code(s): M62.82 - Rhabdomyolysis (5) Hypokalemia Code(s): E87.6 - HYPOKALEMIA (6) PAF (paroxysmal atrial fibrillation) Code(s): I48.0 - PAROXYSMAL ATRIAL FIBRILLATION Assessment/Plan Admitted to monitor bed Cardio, Neuro consults and appreciated. NOAC was added. Replete K Monitor electrolytes. PT AM labs
--- NOTE | 2019-04-04 11:50 | ECHO ---
Name: KRISTINA MAE Exam:Adult Echocardiogram Study Date: 04/04/2019 09:05 AM Age: 83 yrs Reason For Study: new onset af,evaluate LV fn,AI Height: 60 in Weight: 109 lb BSA: 1.4 m2 MMode/2D Measurements & Calculations IVSd: 0.83 cm Ao root diam: 3.2 cm LVIDd: 3.6 cm LA dimension: 3.9 cm LVIDs: 2.5 cm ACS: 1.9 cm LVPWd: 0.84 cm LVPWs: 1.1 cm EDV(Teich): 52.7 ml ESV(Teich): 22.8 ml Doppler Measurements & Calculations Ao V2 max: 122.5 cm/sec AI max anatoliy: 337.5 cm/sec Ao max P.1 mmHg AI max P.6 mmHg Ao V2 mean: 84.2 cm/sec Ao mean P.4 mmHg AI dec slope: 100.1 cm/sec2 Ao V2 VTI: 20.9 cm AI P1/2t: 987.1 msec TR max anatoliy: 215.0 cm/sec PI end-d anatoliy: 93.7 cm/sec TR max P.6 mmHg Procedure A complete two-dimensional transthoracic echocardiogram was performed (2D, M-mode, Doppler and color flow Doppler). Left Ventricle The left ventricular size, thickness and function are normal. Ejection Fraction = 60%. The transmitra l spectral Doppler flow pattern is suggestive of impaired LV relaxation. The left ventricular wall mel on is normal. Right Ventricle The right ventricle is normal in size and function. Atria Normal left and right atrial size and function. Mitral Valve There is mild mitral annular calcification. There is trace to mild mitral regurgitation. Tricuspid Valve The tricuspid valve is normal in structure and function. There is trace tricuspid regurgitation. Righ t ventricular systolic pressure is 24 mmhg. Assuming the RA pressure is 5 mmHg. Aortic Valve There is mild to moderate aortic valve thickening. Mild to moderate aortic regurgitation. Pulmonic Valve The pulmonic valve is normal in structure and function. Trace to mild pulmonic valvular regurgitation . Great Vessels The aortic root is normal size. Pericardium/Pleura There is no pericardial effusion. There is no pleural effusion. Interpretation Summary The left ventricular size, thickness and function are normal Ejection Fraction = 60%. There is mild mitral annular calcification. There is trace to mild mitral regurgitation. There is trace tricuspid regurgitation. Right ventricular systolic pressure is 24 mmhg. There is mild to moderate aortic valve thickening. Mild to moderate aortic regurgitation. Trace to mild pulmonic valvular regurgitation. MD Sal Ochoa 04/04/2019 11:49 AM
[2019-04-05 06:35] LABS: HEMATOCRIT 30.9 % (32.4-45.2); HEMOGLOBIN 10.5 GM/dL (10.7-15.3); MCH 31.9 pg (25.7-33.7); MCHC 34.1 g/dl (32.0-36.0); MEAN CELL VOLUME 93.8 fl (80-96); MEAN PLT VOLUME 9.1 fl (7.5-11.1); PLATELET COUNT 160 K/MM3 (134-434); RBC 3.29 M/mm3 (3.60-5.2); RDW 14.9 % (11.6-15.6); WHITE BLOOD COUNT 7.9 K/mm3 (4.0-10.0)
[2019-04-05 06:45] LABS: ALBUMIN 1.9 g/dl (3.4-5.0); BILIRUBIN,TOTAL 0.4 mg/dL (0.2-1); BLOOD UREA NITROGEN 35.6 mg/dL (7-18); CALCIUM 8.3 mg/dL (8.5-10.1); CREATININE 0.9 mg/dL (0.55-1.3); MAGNESIUM 2.1 mg/dL (1.8-2.4); POTASSIUM 4.4 mmol/L (3.5-5.1); TOT PROT 4.7 g/dl (6.4-8.2)
--- NOTE | 2019-04-05 08:47 | PN ---
Progress Note (short form) - Note Progress Note: Neurology HPI: 83YOF with a significant past medical history of syncopal episodes who presented to the emergency department via EMS s/p possible syncope. Patient reported to the ED yesterday night, after her food delivery service provider allegedly found her down on the ground. Patient does not recall any recent falls. She noted that she is currently asymptomatic with no complaints here. She takes no home meds, has not tried any new meds/supplements/herbs. She has not been recently ill, had sick contacts, or travel history. She denies dysuria , hematuria, diarrhea. Daughter Viridiana reported patient lives alone but returned to lock home after [place] police/EMS left front door closed. Of note, daughter and pt corroborate that pt had urinary incontinence near sofa and was wiping floor with paper towels. Possible that food special effects person witnessed this. Pt normally walks without assistance at home and with a cane when outdoors. Head CT, no acute pathology. Cervical Spine CT, anterolisthesis of C3 on C4, C7 on T1, miltilevel disc narrowing, no evidence of acute fracture. Patient in good spirits and without significant complaint. 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 Hip/Pelvic xray completed, with no acute pathology, right hip replacement noted. Denies any significant events and receiving antibiotics at this time. Remains on ceftriaxone, mental status appears to be at baseline. Discussed with primary care physician and reportedly overnight patient developed a run of atrial fibrillation and was put on Eliquis. Cardiac arrhythmia may explain her recurrent episodes, defer to an/ssn 2 4 operator regarding anticoagulation. Would advise strict fall precautions especially if she is to be on AC. Patient remains in good spirits, completing course of ABx. Active Medications Acetaminophen (Tylenol -) 650 mg PO Q6H PRN PRN Reason: PAIN Last Admin: 04/03/19 22:37 Dose: 650 mg Amiodarone HCl (Cordarone -) 200 mg PO BID [facility] Last Admin: 04/04/19 21:26 Dose: 200 mg Apixaban (Eliquis -) 2.5 mg PO BID [facility] Last Admin: 04/04/19 21:25 Dose: 2.5 mg Ceftriaxone Sodium 1 gm/ (Dextrose) 50 mls @ 100 mls/hr IVPB DAILY [facility] Last Admin: 04/04/19 09:29 Dose: 100 mls/hr Metoprolol Tartrate (Lopressor -) 25 mg PO BID [facility] Last Admin: 04/04/19 21:26 Dose: 25 mg Physical Examination Vital Signs Period Temp Pulse Resp BP Sys/Morel Pulse Ox Last 24 Hr 97.5 F-98.0 F 89-107 19-22 94-101/59-79 98 Constitutional: Yes: Well Nourished, No Distress, Calm Eyes: Yes: WNL, Conjunctiva Clear, EOM Intact, PERRL HENT: Yes: WNL, Atraumatic, Normocephalic Neck: Yes: Supple, Trachea Midline, Tenderness (right anterior aspect- TTP) Cardiovascular: Yes: WNL, Regular Rate and Rhythm, S1, S2 Respiratory: Yes: WNL, Regular, CTA Bilaterally Musculoskeletal: Yes: WNL Extremities: Yes: WNL Edema: No Peripheral Pulses WNL: Yes Integumentary: Yes: WNL Neurological: Yes: WNL, Alert, Oriented, Cran Nerves II-XII Intact, moves all extremities equally, sensory intact to LT Psychiatric: Yes: WNL, Alert, Oriented CBCD WBC 7.9 K/mm3 (4.0-10.0) 04/05/19 05:15 RBC 3.29 M/mm3 (3.60-5.2) L 04/05/19 05:15 Hgb 10.5 GM/dL (10.7-15.3) L 04/05/19 05:15 Hct 30.9 % (32.4-45.2) L 04/05/19 05:15 MCV 93.8 fl (80-96) 04/05/19 05:15 MCHC 34.1 g/dl (32.0-36.0) 04/05/19 05:15 RDW 14.9 % (11.6-15.6) 04/05/19 05:15 Plt Count 160 K/MM3 (134-434) D 04/05/19 05:15 MPV 9.1 fl (7.5-11.1) 04/05/19 05:15 CMP Sodium 140 mmol/L (136-145) 04/05/19 05:15 Potassium 4.4 mmol/L (3.5-5.1) 04/05/19 05:15 Chloride 107 mmol/L (98-107) 04/05/19 05:15 Carbon Dioxide 29 mmol/L (21-32) 04/05/19 05:15 Anion Gap 4 MMOL/L (8-16) L 04/05/19 05:15 BUN 35.6 mg/dL (7-18) H 04/05/19 05:15 Creatinine 0.9 mg/dL (0.55-1.3) 04/05/19 05:15 Random Glucose 99 mg/dL (74-106) 04/05/19 05:15 Calcium 8.3 mg/dL (8.5-10.1) L 04/05/19 05:15 Total Bilirubin 0.4 mg/dL (0.2-1) 04/05/19 05:15 AST 19 U/L (15-37) 04/05/19 05:15 ALT 16 U/L (13-61) 04/05/19 05:15 Alkaline Phosphatase 64 U/L (45-117) 04/05/19 05:15 Total Protein 4.7 g/dl (6.4-8.2) L 04/05/19 05:15 Albumin 1.9 g/dl (3.4-5.0) L 04/05/19 05:15 CARDIAC ENZYMES Creatine Kinase 174 U/L (26-192) 04/02/19 07:00 Troponin I < 0.02 ng/ml (0.00-0.05) 04/02/19 07:00 ASSESSMENT/PLAN 83YOF with a significant past medical history of syncopal episodes who presented to the emergency department via EMS s/p possible syncope. Patient reported to the ED yesterday night, after her food delivery service provider allegedly found her down on the ground. Patient does not recall any recent falls and is unaware why she is currently in the ED. She noted that she is currently asymptomatic with no complaints here. She takes no home meds, has not tried any new meds/supplements/herbs. She has not been recently ill, had sick contacts, or travel history. She denies dysuria, hematuria, diarrhea. Daughter Viridiana at bedside. Viridiana was not present for incident as pt lives alone but returned to lock home after [place] police/EMS left front door closed. Of note , daughter and pt corroborate that pt had urinary incontinence near sofa and was wiping floor with paper towels. Possible that food special effects person witnessed this. Pt normally walks without assistance at home and with a cane when outdoors. Head CT, no acute pathology. Cervical Spine CT, anterolisthesis of C3 on C4, C7 on T1, miltilevel disc narrowing, no evidence of acute fracture. 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 Hip/Pelvic xray completed, with no acute pathology, right hip replacement noted. Will not add medication as she is without symptoms. Can continue medical optimization, cardiac work up. Hydration recommended, physical therapy as tolerated, assistive device as needed (cane).Discussed with primary care physician and reportedly overnight patient developed a run of atrial fibrillation and was put on Eliquis. Cardiac arrhythmia may explain her recurrent episodes, defer to an/ssn 2 4 operator regarding anticoagulation. Would advise strict fall precautions especially if she is to be on AC. Patient remains in good spirits, completing course of ABx. Neurologically stable.
[2019-04-05] MEDS ORDERED: DEXTROSE 5%-WATER - 50 ML IVPB ONE (11:00)
[2019-04-05] MEDS ORDERED: cefTRIAXone SODIUM 1 GM VIAL ONE (11:00)
[2019-04-05] MEDS: CEFTRIAXONE 1 GM in DEXTROSE 5%-WATER - 50 ML IVPB SCH (11:01)
[2019-04-05] MEDS: METOPROLOL TARTRATE 25 MG TABLET (FP) PO SCH ×2 (11:02→21:25)
[2019-04-05] MEDS: APIXABAN 2.5 MG TABLET PO SCH ×2 (11:03→21:25)
[2019-04-05] MEDS: AMIODARONE HCL 200 MG TABLET PO SCH ×2 (11:03→21:25)
--- NOTE | 2019-04-05 12:38 | CON.PULM ---
Consult Consult Specialty:: PULMONARY Referred by:: Dr Lujan Reason for Consultation:: lung nodules - History of Present Illness Chief Complaint: s/p fall History of Present Illness: 83yo female without significant past medical history who was admitted s/p fall. Being treated for possible UTI and noted to have asymptomatic atrial fibrillation. Pulmonary consulted as pt found to have bilateral scattered lung nodules. She denies shortness of breath, chronic cough or wheezing. 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 No family history of lung cancer. Denies fevers, chills or sweats. She maintains a good appetite and denies unintentional weight loss. CT chest in 2017 showing similar nodules. - History Source History Provided By: Patient, Medical Record Limitations to Obtaining History: No Limitations - Past Medical History Pulmonary: Yes: Other (lung nodule) ...: No Musculoskeletal: Yes: Osteoarthritis - Alcohol/Substance Use Hx Alcohol Use: No History of Substance Use: reports: None - Smoking History Smoking history: Never smoked Have you smoked in the past 12 months: No Aproximately how many cigarettes per day: 0 If you are a former smoker, when did you quit?: 50 YEARS AGO - Social History ADL: Independent History of Recent Travel: No Home Medications - Allergies Allergies/Adverse Reactions: Allergies Allergy/AdvReac Type Severity Reaction Status Date / Time No Known Drug Allergies Allergy Verified 12/26/18 16:58 - Home Medications Home Medications: Ambulatory Orders NK [No Known Home Medication] 02/03/17 Review of Systems - Review of Systems Constitutional: denies: Chills, Fever, Unintentional Wgt. Loss Eyes: denies: Recent Change in Vision HENT: denies: Nasal Congestion, Throat Pain Neck: denies: Stiffness, Tenderness Cardiovascular: denies: Chest Pain, Shortness of Breath Respiratory: denies: Cough, SOB, Wheezing Gastrointestinal: denies: Abdominal Pain, Nausea, Vomiting Genitourinary: denies: Dysuria, Hematuria Neurological: denies: Headache Endocrine: denies: Unexplained Weight Loss Physical Exam Vital Sings: Vital Signs Temperature 98 F 04/05/19 10:00 Pulse Rate 68 04/05/19 10:00 Respiratory Rate 18 04/05/19 10:00 Blood Pressure 112/77 04/05/19 10:00 O2 Sat by Pulse Oximetry (%) 98 04/04/19 21:00 Constitutional: Yes: Calm Eyes: Yes: Conjunctiva Clear, EOM Intact HENT: Yes: Atraumatic, Normocephalic Neck: Yes: Supple, Trachea Midline Cardiovascular: Yes: Regular Rate and Rhythm Respiratory: Yes: Diminished (decreased breath sounds at the bases) ...Clubbing: No Gastrointestinal: Yes: Normal Bowel Sounds, Soft Edema: No Neurological: Yes: Alert, Oriented Labs: CBC, BMP 04/05/19 05:15 04/05/19 05:15 Imaging - Results Cat Scan: Report Reviewed, Image Reviewed (scattered nodules) Problem List - Problems (1) Lung nodules Code(s): R91.8 - OTHER NONSPECIFIC ABNORMAL FINDING OF LUNG FIELD Assessment/Plan Lung Nodules Paroxysmal Atrial Fibrillation LV diastolic Dysfunction CAD Pulmonary HTN Aortic Regurgitation r/o UTI Anemia - lung nodules were previously seen in 2017, pt with low risk factors for malignancies - can monitor nodules as outpt - rate control - continue anticoagulation - monitor H/H - on empiric antibiotics Thank you for this consult Maxwell Osman MD
--- NOTE | 2019-04-05 12:38 | PN ---
Progress Note, Physician History of Present Illness: Pt w/o fever, chills, cg, SOB, CP, palpitations, abd pain. - Current Medication List Current Medications: Active Medications Acetaminophen (Tylenol -) 650 mg PO Q6H PRN PRN Reason: PAIN Last Admin: 04/03/19 22:37 Dose: 650 mg Amiodarone HCl (Cordarone -) 200 mg PO BID [facility] Last Admin: 04/05/19 11:03 Dose: 200 mg Apixaban (Eliquis -) 2.5 mg PO BID [facility] Last Admin: 04/05/19 11:03 Dose: 2.5 mg Ceftriaxone Sodium 1 gm/ (Dextrose) 50 mls @ 100 mls/hr IVPB DAILY [facility] Last Admin: 04/05/19 11:01 Dose: 100 mls/hr Metoprolol Tartrate (Lopressor -) 25 mg PO BID [facility] Last Admin: 04/05/19 11:02 Dose: 25 mg - Objective Vital Signs: Vital Signs Temperature 98 F 04/05/19 10:00 Pulse Rate 68 04/05/19 10:00 Respiratory Rate 18 04/05/19 10:00 Blood Pressure 112/77 04/05/19 10:00 O2 Sat by Pulse Oximetry (%) 98 04/04/19 21:00 Constitutional: Yes: No Distress, Calm Cardiovascular: Yes: Regular Rate and Rhythm, S1, S2 Respiratory: Yes: Regular, CTA Bilaterally. No: Rales Gastrointestinal: Yes: Normal Bowel Sounds, Soft. No: Tenderness Edema: No Neurological: Yes: Alert, Oriented Labs: CBC, BMP 04/05/19 05:15 04/05/19 05:15 - ....Imaging Cat Scan: Report Reviewed Problem List - Problems (1) Syncope Code(s): R55 - SYNCOPE AND COLLAPSE Qualifiers: Syncope type: unspecified Qualified Code(s): R55 - Syncope and collapse (2) Hypokalemia Code(s): E87.6 - HYPOKALEMIA (3) UTI (urinary tract infection) Code(s): N39.0 - URINARY TRACT INFECTION, SITE NOT SPECIFIED Qualifiers: Urinary tract infection type: site unspecified Hematuria presence: without hematuria Qualified Code(s): N39.0 - Urinary tract infection, site not specified (4) Rhabdomyolysis Code(s): M62.82 - RHABDOMYOLYSIS Qualifiers: Rhabdomyolysis type: non-traumatic Qualified Code(s): M62.82 - Rhabdomyolysis (5) Hypokalemia Code(s): E87.6 - HYPOKALEMIA (6) PAF (paroxysmal atrial fibrillation) Code(s): I48.0 - PAROXYSMAL ATRIAL FIBRILLATION Assessment/Plan Admitted to monitor bed Cardio, Neuro consults and appreciated. NOAC was added. Chest CT scan w/o lung mass. Monitor electrolytes. PT AM labs
--- NOTE | 2019-04-05 16:44 | PN ---
Progress Note, Physician History of Present Illness: Remains in rate-controlled afib. - Current Medication List Current Medications: Active Medications Acetaminophen (Tylenol -) 650 mg PO Q6H PRN PRN Reason: PAIN Last Admin: 04/03/19 22:37 Dose: 650 mg Amiodarone HCl (Cordarone -) 200 mg PO BID [facility] Last Admin: 04/05/19 11:03 Dose: 200 mg Apixaban (Eliquis -) 2.5 mg PO BID [facility] Last Admin: 04/05/19 11:03 Dose: 2.5 mg Ceftriaxone Sodium 1 gm/ (Dextrose) 50 mls @ 100 mls/hr IVPB DAILY [facility] Last Admin: 04/05/19 11:01 Dose: 100 mls/hr Metoprolol Tartrate (Lopressor -) 25 mg PO BID [facility] Last Admin: 04/05/19 11:02 Dose: 25 mg - Objective Vital Signs: Vital Signs Temperature 98 F 04/05/19 10:00 Pulse Rate 68 04/05/19 10:00 Respiratory Rate 18 04/05/19 10:00 Blood Pressure 112/77 04/05/19 10:00 O2 Sat by Pulse Oximetry (%) 98 04/05/19 09:00 Constitutional: Yes: No Distress, Calm Neck: Yes: Supple Cardiovascular: Yes: Pulse Irregular Respiratory: Yes: Regular, Diminished Gastrointestinal: Yes: Normal Bowel Sounds, Soft Edema: No Labs: CBC, BMP 04/05/19 05:15 04/05/19 05:15 - ....Imaging EKG: Report Reviewed (Tele: NSR) Problem List - Problems (1) Diastolic dysfunction without heart failure Code(s): I51.89 - OTHER ILL-DEFINED HEART DISEASES (2) PAF (paroxysmal atrial fibrillation) Code(s): I48.0 - PAROXYSMAL ATRIAL FIBRILLATION Assessment/Plan 04/04/2019 Echo: Normal LV size and fxn LVEF 60%, tr-mild MR, tr TR RVSP 24 mmHg , mild-mod AR, tr-mild ID 04/04/[address]: No PNA or cavitary lesion ASSESSMENT: 1. Paroxysmal atrial fibrillation [id number] score of 3 rate controlled initiated on therapy/B-Blockers and A/C with DOAC's- Eliquis 2. Coronary artery disease/coronary artery calcification visual calcification on CT scan of the chest angina pectoris 3. Diastolic left ventricular dysfunction and pulm HTN with elevated BNP level no clinical evidence of congestive heart failure 4. Unwitnessed fall, unclear if associated syncope no reported trauma 5. History of near syncope suspected hypovolemia, likelihood of recurrence is high considering noted pre-renal azotemia on admission blood test 6. History of chest pain syndrome 7. Aortic regurgitation 8. Moderate degree of pulmonary HTN 9. CKD with evidence of prerenal azotemia 10. UTI 11. Hypokalemia, resolved 12. Anemia 13. Lung nodules PLAN: 1. Continue Lopressor 25 bid hemodynamics permitting 2. Continue Amiodarone to assist with chemical conversion, at 200 mg twice daily 3. Ideally A/C therapy with DOAC's- Eliquis 2.5 bid to be continued indefinitely considering the above noted [id number] score of 3 4. Correction of Hypokalemia 5. Empiric antibiotic course as per the primary team
--- NOTE | 2019-04-06 07:09 | DS ---
Physical Examination Vital Signs: Vital Signs Temperature 98.5 F 04/06/19 06:42 Pulse Rate 76 04/06/19 06:42 Respiratory Rate 21 H 04/06/19 06:42 Blood Pressure 118/74 04/06/19 06:42 O2 Sat by Pulse Oximetry (%) 98 04/05/19 21:00 Findings/Remarks: in bed no new c/o VSS events noted seen by cardiology and pulmonary; no objections for DC; s/p 5 days IV ATB; UCX negative PAFib on eliquis bid and amiodarone daily d/w pt and daughter DC to SNF / NH for PT Constitutional: Yes: No Distress, Calm Eyes: Yes: Conjunctiva Clear HENT: Yes: Atraumatic Neck: Yes: Supple Cardiovascular: No: Regular Rate and Rhythm Respiratory: Yes: CTA Bilaterally Gastrointestinal: Yes: Soft. No: Tenderness Musculoskeletal: No: Joint Stiffness, Joint Swelling Extremities: No: Cold, Cool, Cyanosis Edema: No Integumentary: Yes: Venous Stasis Changes. No: Rash Neurological: Yes: WNL, Alert, Oriented ...Motor Strength: WNL Psychiatric: Yes: WNL, Alert, Oriented. No: Agitated, Suicidal Ideation Labs: CBC, BMP 04/05/19 05:15 04/05/19 05:15 Discharge Summary Problems reviewed: Yes Reason For Visit: SYNCOPE Current Active Problems Diastolic dysfunction without heart failure (Acute) Hypokalemia (Acute) Hypokalemia (Acute) Lung mass (Acute) Lung nodules (Acute) PAF (paroxysmal atrial fibrillation) (Acute) Rhabdomyolysis (Acute) Syncope (Acute) Procedures: Principal: 83 YOF COPD admitted with syncope fall; admitted to telemetry Other Procedures: seen by cardiology and neurology; had PAFib started on eliquis and amiodarone Hospital Course: improved with above; vhest CT no acute changes; head CT no acute changes; seen by neurology; UA+ but UCx negative; received 5 days iv ceftriaxone; cleared for DC to SNF d/w pt and daughter agreed with plan; risks AC bleeding with eliquis dw pt and daughter Condition: Stable - Instructions Diet, Activity, Other Instructions: f/u PCP cardiology and pulmonary in 1-2 weeks after DC from SNF / NH take meds as advised; take blood thinner as prescribed; falls precautions RTER if worse or recurrent Referrals: Sybil Lujan [Primary Care Provider] - Alexander Herring MD [Staff Physician] - Yuri Singh MD [Staff Physician] - Ean Caputo MD [Staff Physician] - Disposition: [facility] - Home Medications Comprehensive Discharge Medication List: Ambulatory Orders NK [No Known Home Medication] 02/03/17
--- NOTE | 2019-04-06 09:40 | PN ---
Progress Note, Physician History of Present Illness: Converted to SR on amio. - Current Medication List Current Medications: Active Medications Acetaminophen (Tylenol -) 650 mg PO Q6H PRN PRN Reason: PAIN Last Admin: 04/03/19 22:37 Dose: 650 mg Amiodarone HCl (Cordarone -) 200 mg PO BID [facility] Last Admin: 04/05/19 21:25 Dose: 200 mg Apixaban (Eliquis -) 2.5 mg PO BID [facility] Last Admin: 04/05/19 21:25 Dose: 2.5 mg Ceftriaxone Sodium 1 gm/ (Dextrose) 50 mls @ 100 mls/hr IVPB DAILY [facility] Last Admin: 04/05/19 11:01 Dose: 100 mls/hr Metoprolol Tartrate (Lopressor -) 25 mg PO BID [facility] Last Admin: 04/05/19 21:25 Dose: 25 mg - Objective Vital Signs: Vital Signs Temperature 98.5 F 04/06/19 06:42 Pulse Rate 76 04/06/19 06:42 Respiratory Rate 21 H 04/06/19 06:42 Blood Pressure 118/74 04/06/19 06:42 O2 Sat by Pulse Oximetry (%) 98 04/05/19 21:00 Constitutional: Yes: No Distress, Calm, Thin Neck: Yes: Supple Cardiovascular: Yes: Regular Rate and Rhythm Respiratory: Yes: Regular, On Nasal O2 Gastrointestinal: Yes: Normal Bowel Sounds, Soft Edema: No Labs: CBC, BMP 04/05/19 05:15 04/05/19 05:15 - ....Imaging EKG: Report Reviewed (Tele: PAF->SR) Problem List - Problems (1) Diastolic dysfunction without heart failure Code(s): I51.89 - OTHER ILL-DEFINED HEART DISEASES (2) PAF (paroxysmal atrial fibrillation) Code(s): I48.0 - PAROXYSMAL ATRIAL FIBRILLATION Assessment/Plan 04/04/2019 Echo: Normal LV size and fxn LVEF 60%, tr-mild MR, tr TR RVSP 24 mmHg , mild-mod AR, tr-mild [place] 04/04/[address]: No PNA or cavitary lesion ASSESSMENT: 1. Paroxysmal atrial fibrillation now in SR [id number] score of 3 initiated on therapy/B-Blockers and A/C with DOAC's- Eliquis 2. Coronary artery disease/coronary artery calcification visual calcification on CT scan of the chest angina pectoris 3. Diastolic left ventricular dysfunction and pulm HTN with elevated BNP level no clinical evidence of congestive heart failure 4. Unwitnessed fall, unclear if associated syncope no reported trauma 5. History of near syncope suspected hypovolemia, likelihood of recurrence is high considering noted pre-renal azotemia on admission blood test 6. History of chest pain syndrome 7. Aortic regurgitation 8. Moderate degree of pulmonary HTN 9. CKD with evidence of prerenal azotemia 10. UTI 11. Hypokalemia, resolved 12. Anemia 13. Lung nodules PLAN: 1. Continue Lopressor 25 bid hemodynamics permitting 2. Continue Amiodarone 200 mg daily to maintain in SR 3. Ideally A/C therapy with DOAC's- Eliquis 2.5 bid to be continued indefinitely considering the above noted [id number] score of 3 4. Correction of Hypokalemia 5. Empiric antibiotic course as per the primary team
[2019-04-06] MEDS ORDERED: cefTRIAXone SODIUM 1 GM VIAL ONE (10:11)
[2019-04-06] MEDS ORDERED: DEXTROSE 5%-WATER - 50 ML IVPB ONE (10:12)
[2019-04-06] MEDS: METOPROLOL TARTRATE 25 MG TABLET (FP) PO SCH (10:15)
[2019-04-06] MEDS: APIXABAN 2.5 MG TABLET PO SCH (10:15)
[2019-04-06] MEDS: CEFTRIAXONE 1 GM in DEXTROSE 5%-WATER - 50 ML IVPB SCH (10:15)
[2019-04-06] MEDS: AMIODARONE HCL 200 MG TABLET PO SCH (11:29)
--- NOTE | 2019-04-06 12:42 | PN ---
Progress Note (short form) - Note Progress Note: PULMONARY Denies shortness of breath, cough. Vital Signs Period Temp Pulse Resp BP Sys/Morel Pulse Ox Last 24 Hr 97.4 F-98.5 F 76-97 - 101-127/66-89 98 Gen: NAD at rest Heart: RRR Lung: decreased breath sounds at the bases Abd: soft, nontender Ext: no edema CBC, BMP 04/05/19 05:15 04/05/19 05:15 Active Medications Acetaminophen (Tylenol -) 650 mg PO Q6H PRN PRN Reason: PAIN Last Admin: 04/03/19 22:37 Dose: 650 mg Amiodarone HCl (Cordarone -) 200 mg PO BID [facility] Stop: 04/06/19 22:00 Last Admin: 04/06/19 11:29 Dose: 200 mg Amiodarone HCl (Cordarone -) 200 mg PO DAILY [facility] Apixaban (Eliquis -) 2.5 mg PO BID [facility] Last Admin: 04/06/19 10:15 Dose: 2.5 mg Ceftriaxone Sodium 1 gm/ (Dextrose) 50 mls @ 100 mls/hr IVPB DAILY [facility] Last Admin: 04/06/19 10:15 Dose: 100 mls/hr Metoprolol Tartrate (Lopressor -) 25 mg PO BID [facility] Last Admin: 04/06/19 10:15 Dose: 25 mg A/P Lung Nodules Paroxysmal Atrial Fibrillation LV Diastolic Dysfunction CAD Pulmonary HTN Aortic Regurgitation r/o UTI Anemia - lung nodules were previously seen in 2017, pt with low risk factors for malignancies - can monitor nodules as outpt - rate control - continue anticoagulation - monitor H/H - on empiric antibiotics Problem List - Problems (1) Lung nodules Code(s): R91.8 - OTHER NONSPECIFIC ABNORMAL FINDING OF LUNG FIELD
[2019-04-06 14:37] VITALS: TEMP 98.5
[2019-04-06 16:29] VITALS: BP 125/71; PULSE 77
[2019-04-07] MEDS ORDERED: AMIODARONE HCL 200 MG TABLET PO SCH (10:00)
== END 2019-04-06 16:42 | DRG 557 ==
LOC: JER 11:38 → JERBED 20:07 → J2W 04-01 19:13
PROVIDERS: ADMIT Internal Medicine; ATTEND Internal Medicine
DX: M62.82 Rhabdomyolysis (principal); E43 Unspecified severe protein-calorie malnutrition; N39.0 Urinary tract infection, site not specified; R55 Syncope and collapse; J44.9 Chronic obstructive pulmonary disease, unspecified; R91.1 Solitary pulmonary nodule; I27.20 Pulmonary hypertension, unspecified; E87.6 Hypokalemia; I48.0 Paroxysmal atrial fibrillation; I35.1 Nonrheumatic aortic (valve) insufficiency; I25.10 Atherosclerotic heart disease of native coronary artery without angina pectoris; W18.30XA Fall on same level, unspecified, initial encounter; Y92.098 Other place in other non-institutional residence as the place of occurrence of the external cause
CPT/HCPCS: 36415; 70450-TC; 71045-TC-FY; 71250-TC; 72125-TC; 72170-TC-FY; 73502-TC-LT-FY; 73502-TC-RT-FY; 80053; 81003; 82550; 82553; 82607; 83735; 83880; 84443; 84484; 85025; 85027; 87086; 87804; 93005; 93010; 93306-TC; 97116-GP; 97162-GP; 99285-25; J1644; J7030